=== PATIENT | male | born 1980 | race African-American/Black ===

== ENCOUNTER → 2016-09-22 | Outpatient (CLI) | payer BC ==
--- NOTE | 2016-09-22 13:43 | Diagnostic Imaging Report ---
INDICATION: Cough and shortness of breath x1 week. Comparison with 12/16/2010. FINDINGS: Examination of the chest in the PA and lateral projections fails to reveal evidence of active parenchymal pathology or pleural effusion. The cardiac silhouette is normal. IMPRESSION: 1. Negative chest. 2. No significant change since previous exam. Dictated by: Dictated on workstation # [id number]
== END ==
LOC: RAD 13:06
PROVIDERS: ATTEND Nurse Practitioner Family
DX: R05 Cough (principal); R06.00 Dyspnea, unspecified
CPT/HCPCS: 71020

== ENCOUNTER 2017-02-10 01:59 | Emergency (ER) | payer BC ==
[~2017-02-10] VITALS: Ht 185.4 cm; Wt 95.3 kg
[2017-02-10] MEDS ORDERED: methylPREDNISolone 125 MG (Solu-MEDROL) VIAL IM ONE (02:15)
[2017-02-10] MEDS ORDERED: MELO15TA39 (02:16)
--- NOTE | 2017-02-10 02:17 | ED Upper Extremity ---
General Chief Complaint: Upper Extremity Stated Complaint: ARTHRITIS FLARE UP-WRIST PAIN Source: patient History of Present Illness Time seen by provider: 02:05 Initial Comments PT C/O "RHEUMATOID FLARE" C/O RIGHT ANTERIOR WRIST PAIN SINCE Thursday02/05/17 PAIN WAS MILD THROUGH WEEKEND USED A ROW BOSS YESTERDAY PAIN MUCH WORSE SINCE NOON TODAY,BUT WAS ABLE TO WORK ALL DAY ( WORKS AT [employer] ) NO PARESTHESIAS OR MOTOR DEFICITS PT STATES HE WAS DX WITH R.A. A YEAR AGO, AND TAKES MELOXICAM DAILY FOR SYMPTOM CONTROL, AND USUALLY KEEPS IT FAIRLY WELL CONTROLLED. SOLAR ENERGY ENGINEER: DR. ECKERT Allergies and Home Medications Allergies Coded Allergies: No Known Drug Allergies (Unverified , 08/01/10) Constitutional: no symptoms reported Musculoskeletal: see HPI Psychiatric/Neurological: No Symptoms Reported Past Dcxmrcx-Rffznn-Rxselg Hx Patient Social History Alcohol Use: Denies Use Recreational Drug Use: Yes Drug of Choice: THC Smoking Status: Current Everyday Smoker (1/2 PPD) Type Used: Cigarettes Recent Foreign Travel: No Contact w/Someone Who Travel: No Surgeries History of Surgeries: No Respiratory History of Respiratory Disorde: No Cardiovascular History of Cardiac Disorders: No Neurological History of Neurological Disord: No Genitourinary History of Genitourinary Disor: No Gastrointestinal History of Gastrointestinal Di: No Musculoskeletal History of Musculoskeletal Dis: Yes Musculoskeletal Disorders: Rheumatoid Arthritis Endocrine History of Endocrine Disorders: No HEENT History of HEENT Disorders: No Cancer History of Cancer: No Psychosocial History of Psychiatric Problem: No Integumentary History of Skin or Integumenta: No Blood Transfusions History of Blood Disorders: No Physical Exam Vital Signs Capillary Refill : General Appearance: WD/WN, no apparent distress Elbow/Forearm: normal inspection, non-tender, no evidence of injury, normal ROM Wrist: No bone tenderness, Yes limited ROM, Yes pain, Yes soft tissue tenderness (RIGHT ANTERIOR WRIST), Yes swelling (SLIGHT) Hand: normal inspection, non-tender, no evidence of injury, normal ROM Neurologic/Tendon: normal sensation, normal motor functions, normal tendon functions Neurologic/Psychiatric: handle maker II-XII nml as tested, no motor/sensory deficits, alert, normal mood/affect, oriented x 3 Skin: normal color, warm/dry Progress/Results/Core Measures Results/Orders My Orders Orders - MARLY MARTINS DO Methylprednisolone Sod Succ (Solu-Medrol (02/10/17 02:15) Departure Impression Impression: Primary Impression: Right wrist pain Additional Impression: Rheumatoid arthritis flare Disposition: 01 HOME, SELF-CARE Condition: Stable Departure-Patient Inst. Referrals: HAROON WILKERSON MD (PCP/Family) Primary Care Physician Patient Instructions: Rheumatoid Arthritis (DC) Add. Discharge Instructions: ALTERNATE ICE AND HEAT TO AREA AT 20 MINUTE INTERVALS HOLD MELOXICAM WHILE TAKING PREDNISONE FOLLOW UP WITH DR. ECKERT IN 2-3 DAYS IF NO BETTER All discharge instructions reviewed with patient and/or family. Voiced understanding. Scripts Methylprednisolone (Medrol) 4 Mg Tab.ds.pk 4 MG PO UD, #1 PKG Prov: MARLY MARTINS DO 02/10/17 MARLY MARTINS DO Feb 10, 2017 02:17
[2017-02-10] MEDS ORDERED: METH4TAB PO (02:21)
[2017-02-10 02:28] VITALS: BP 127/97
== END 2017-02-10 02:28 | disposition home or self-care (01) ==
LOC: EDUNIT# 01:59 → ER 02:02
DX: F17.210 Nicotine dependence, cigarettes, uncomplicated; M06.9 Rheumatoid arthritis, unspecified
CPT/HCPCS: 96372; 99284

== ENCOUNTER → 2017-06-05 | Outpatient (CLI) | payer BC ==
[~2017-06-05] MED LIST: GADOBUTROL 10 MMOL/10 ML (GADAVIST) VIAL IV ONE; MELO15TA39; METH4TAB PO
[2017-06-05 09:20] LABS: ALANINE AMINOTRANSFERASE 20 U/L (0-55); ALBUMIN 4.5 GM/DL (3.2-4.5); ALKALINE PHOSPHATASE 50 U/L (40-136); BILIRUBIN,TOTAL 0.7 MG/DL (0.1-1.0); BUN/CREATININE RATIO 13; CALCIUM 9.8 MG/DL (8.5-10.1); CARBON DIOXIDE 25 MMOL/L (21-32); CHLORIDE 104 MMOL/L (98-107); CREATININE SERUM 0.91 MG/DL (0.60-1.30); GFR ESTIMATED > 60; GLUCOSE 98 MG/DL (70-105); POTASSIUM 4.4 MMOL/L (3.6-5.0); SODIUM 139 MMOL/L (135-145); TOTAL PROTEIN 7.6 GM/DL (6.4-8.2)
--- NOTE | 2017-06-05 10:17 | Diagnostic Imaging Report ---
CLINICAL INDICATION: Patient states he had a couple episodes of headaches, nausea and dizziness for the last several days at a time. Patient has joint pain and weight loss. Exam: MRI of the brain performed without and with 9 cc of Gadavist IV contrast. Sequences include axial DWI, ADC map, coronal gradient echo, axial T2, axial FLAIR, axial T1, axial T1 post IV contrast, coronal T1 fat-sat post IV contrast, and sagittal T1 post IV contrast. Comparison: MRI of the brain performed without and with IV contrast dated 12/16/2010. Findings: There is no evidence of acute cerebral infarct, intracranial hemorrhage, or gross mass effect. There is normal kimble-white matter distinction. The brain parenchymal volume appears appropriate for patient's age. There is no significant midline shift or herniation. The tetlin of Mcbride vascular structures show no gross abnormality as visualized. The pituitary gland, sella, and suprasellar regions are unremarkable as visualized. There is no evidence of hydrocephalus. The basal cisterns are unremarkable. The skull, extracranial soft tissue, and orbits are unremarkable. The paranasal sinuses are unremarkable. IMPRESSION: Unremarkable MRI of the brain. Dictated by: Dictated on workstation # [id number]
== END ==
LOC: RAD 08:34
PROVIDERS: ATTEND Nurse Practitioner Family
DX: R51 Headache (principal); R11.0 Nausea; R42 Dizziness and giddiness; R63.4 Abnormal weight loss
CPT/HCPCS: 36415; 70553; 80053

== ENCOUNTER 2017-06-12 18:18 | Emergency (ER) | payer BC ==
[~2017-06-12] VITALS: Ht 185.4 cm; Wt 93.4 kg
[~2017-06-12 18:18] MED LIST changes: -GADOBUTROL 10 MMOL/10 ML (GADAVIST) VIAL IV ONE
[2017-06-12] MEDS ORDERED: NS IV 1000 ML 1,000 ML IV SCH (19:15)
[2017-06-12] MEDS ORDERED: ONDANSETRON 4 MG/2 ML (SDV) Z0FRAN IVP ONE (19:30)
--- NOTE | 2017-06-12 19:30 | ED Abdominal Pain ---
General Chief Complaint: Abdominal/GI Problems Stated Complaint: LOSS OF APPETITE/THROAT DISCOMFORT Nursing Triage Note: PT CO OF NO APPETITE, NAUSEA X3 WEEKS,FELT LIKE HAS HAD SOMETHING IN THROAT FOR 2 DAYS, HAS LOST 20# SINCE FEB AND IS NOT TRYING TO LOOSE WT Sepsis Screen: No Definite Risk Source of Information: Patient Exam Limitations: No Limitations (ligated joining) History of Present Illness Date Seen by Provider: Jun 12, 2017 Time Seen by Provider: 19:27 Initial Comments To ER by mother with reports of an intentional weight loss since February totaling about 20 pounds. Nausea and epigastric fullness for 3 weeks. Sensation of some things stuck in his throat for about 2 days. Denies fevers. Denies bowel changes. Does report "tightness" in his upper abdomen. States he was recently diagnosed with rheumatoid arthritis about 3 days ago following evaluation for joint pains. He has not yet started any treatment for this because the medicine that they prescribed had a side effect listed of nausea. She was are dealing with nausea he didn't want add to that. Has been on meloxicam daily for over a year until about 2-3 weeks ago he stopped it. Timing/Duration: Getting Worse, Other Severity/Quality: Moderate Radiation: No Radiation Activities at Onset: None Associated Symptoms: Nausea/Vomiting Allergies and Home Medications Allergies Coded Allergies: No Known Drug Allergies (Unverified , 08/01/10) Review of Systems Constitutional: see HPI EENTM: No Symptoms Reported Respiratory: No Symptoms Reported Cardiovascular: No Symptoms Reported Gastrointestinal: See HPI, Abdominal Pain, Nausea Genitourinary: No Symptoms Reported Musculoskeletal: no symptoms reported Skin: no symptoms reported Psychiatric/Neurological: No Symptoms Reported Past Irniyzl-Sutoet-Ailoem Hx Patient Social History Alcohol Use: Denies Use Recreational Drug Use: Yes Drug of Choice: THC Type Used: Cigarettes Recent Foreign Travel: No Contact w/Someone Who Travel: No Recent Infectious Disease Expo: No Recent Hopitalizations: No Physical Abuse: No Sexual Abuse: No Surgeries History of Surgeries: No Respiratory History of Respiratory Disorde: No Cardiovascular History of Cardiac Disorders: No Neurological History of Neurological Disord: No Genitourinary History of Genitourinary Disor: No Gastrointestinal History of Gastrointestinal Di: No Musculoskeletal History of Musculoskeletal Dis: Yes Musculoskeletal Disorders: Rheumatoid Arthritis Endocrine History of Endocrine Disorders: No HEENT History of HEENT Disorders: No Cancer History of Cancer: No Psychosocial History of Psychiatric Problem: No Suicide Risk Score: 0 Integumentary History of Skin or Integumenta: No Blood Transfusions History of Blood Disorders: No Physical Exam Vital Signs VS - Last 72 Hours, by Label 06/12/17 18:45 Temp 97.7 Pulse 98 Resp 18 B/P (MAP) 135/90 (105) Pulse Ox 98 Capillary Refill : Less Than 3 Seconds General Appearance: WD/WN, no apparent distress HEENT: PERRL/EOMI, normal ENT inspection Neck: non-tender, full range of motion Respiratory: no respiratory distress, no accessory muscle use Cardiovascular: regular rate, rhythm, no murmur Gastrointestinal: normal bowel sounds, non tender, soft Neurologic/Psychiatric: alert, normal mood/affect, oriented x 3 Skin: normal color, warm/dry Progress/Results/Core Measures Results/Orders Lab Results Laboratory Tests Test 06/12/17 20:36 06/12/17 20:55 Range/Units White Blood Count 4.3 4.3-11.0 10^3/uL Red Blood Count 4.86 4.35-5.85 10^6/uL Hemoglobin 14.6 13.3-17.7 G/DL Hematocrit 42 40-54 % Mean Corpuscular Volume 86 80-99 FL Mean Corpuscular Hemoglobin 30 25-34 PG Mean Corpuscular Hemoglobin Concent 35 32-36 G/DL Red Cell Distribution Width 14.1 10.0-14.5 % Platelet Count 174 130-400 10^3/uL Mean Platelet Volume 10.3 7.4-10.4 FL Neutrophils (%) (Auto) 59 42-75 % Lymphocytes (%) (Auto) 32 12-44 % Monocytes (%) (Auto) 8 0-12 % Eosinophils (%) (Auto) 1 0-10 % Basophils (%) (Auto) 0 0-10 % Neutrophils # (Auto) 2.5 1.8-7.8 X 10^3 Lymphocytes # (Auto) 1.3 1.0-4.0 X 10^3 Monocytes # (Auto) 0.4 0.0-1.0 X 10^3 Eosinophils # (Auto) 0.0 0.0-0.3 10^3/uL Basophils # (Auto) 0.0 0.0-0.1 10^3/uL Sodium Level 138 135-145 MMOL/L Potassium Level 3.8 3.6-5.0 MMOL/L Chloride Level 107 98-107 MMOL/L Carbon Dioxide Level 23 21-32 MMOL/L Anion Gap 8 5-14 MMOL/L Blood Urea Nitrogen 9 7-18 MG/DL Creatinine 0.77 0.60-1.30 MG/DL Estimat Glomerular Filtration Rate > 60 BUN/Creatinine Ratio 12 Glucose Level 94 70-105 MG/DL Calcium Level 9.4 8.5-10.1 MG/DL Total Bilirubin 0.5 0.1-1.0 MG/DL Aspartate Amino Transf (AST/SGOT) 15 5-34 U/L Alanine Aminotransferase (ALT/SGPT) 19 0-55 U/L Alkaline Phosphatase 47 40-136 U/L C-Reactive Protein High Sensitivity 0.30 0.00-0.50 MG/DL Total Protein 7.0 6.4-8.2 GM/DL Albumin 4.1 3.2-4.5 GM/DL Thyroid Stimulating Hormone (TSH) 0.89 0.35-4.94 UIU/ML Free Thyroxine 0.91 0.70-1.48 NG/DL Urine Color YELLOW Urine Clarity CLEAR Urine pH 6.5 5-9 Urine Specific [place] 1.005 L 1.016-1.022 Urine Protein NEGATIVE NEGATIVE Urine Glucose (UA) NEGATIVE NEGATIVE Urine Ketones NEGATIVE NEGATIVE Urine Nitrite NEGATIVE NEGATIVE Urine Bilirubin NEGATIVE NEGATIVE Urine Urobilinogen NORMAL NORMAL MG/DL Urine Leukocyte Esterase NEGATIVE NEGATIVE Urine RBC (Auto) NEGATIVE NEGATIVE Urine RBC NONE /HPF Urine WBC NONE /HPF Urine Squamous Epithelial Cells RARE /HPF Urine Crystals NONE /LPF Urine Bacteria NONE /HPF Urine Casts NONE /LPF Urine Mucus NEGATIVE /LPF Urine Culture Indicated NO My Orders Orders - SHANE GAN APRN Influenza A And B Antigens (06/12/17 18:46) Cbc With Automated Diff (06/12/17 19:03) Comprehensive Metabolic Panel (06/12/17 19:03) Ua Culture If Indicated (06/12/17 19:03) Saline Lock/Iv-Start (06/12/17 19:03) Thyroid Stimulating Hormone (06/12/17 19:03) Free T4 (Free Thyroxine) (06/12/17 19:03) Ns Iv 1000 Ml (Sodium Chloride 0.9%) (06/12/17 19:15) Erythrocyte Sedimentation Rate (06/12/17 19:30) Hs C Reactive Protein (06/12/17 19:30) Ondansetron Injection (Zofran Injectio (06/12/17 19:30) Iohexol Injection (Omnipaque 350 Mg/Ml 1 (06/12/17 19:45) Pharmacy Communication (Pharmacy Communi (06/12/17 19:31) Ns (Ivpb) (Sodium Chloride 0.9%) (06/12/17 19:45) Ct Neck/Chest/Abdomen W (06/12/17 19:26) Antacid Suspension (Mylanta Suspension (06/12/17 21:30) Lidocaine 2% Viscous 15 Ml (Xylocaine Vi (06/12/17 21:30) Medications Given in ED Current Medications Medications Dose Ordered Sig/Jaquan Route Start Time Stop Time Status Last Admin Dose Admin Iohexol 100 ml ONCE ONCE IV 06/12/17 19:45 06/12/17 19:46 DC 06/12/17 20:45 100 ML Ondansetron HCl 4 mg ONCE ONCE IVP 06/12/17 19:30 06/12/17 19:31 DC 06/12/17 20:29 4 MG Sodium Chloride 250 ml ONCE ONCE IV 06/12/17 19:45 06/12/17 19:46 DC 06/12/17 20:45 80 ML Vital Signs/I&O Vital Sign - Last 12Hours 06/12/17 18:45 Temp 97.7 Pulse 98 Resp 18 B/P (MAP) 135/90 (105) Pulse Ox 98 Blood Pressure Mean: 105 Diagnostic Imaging Diagonstic Imaging: CT Comments NAME: KAI GERBER [facility] REC#: [id number] PT STATUS: REG ER : 1980 PHYSICIAN: SHANE GAN APRN ADMIT DATE: 06/12/17/ER Draft Date of Exam:06/12/17 CT NECK/CHEST/ABDOMEN W INDICATION: Nausea for 3 weeks with dysphagia and weight loss Multiple contiguous axial CT images of the neck, chest and abdomen are obtained after intravenous administration of iodinated contrast. CT neck: Great vessels in the neck appear patent. There are subcentimeter cervical lymph nodes which are distributed symmetrically, bilaterally. No evidence of dominant mass or fluid collection is seen. Parotid and submandibular salivary glands have a normal appearance as does the thyroid gland. IMPRESSION: No neck abnormality is appreciated. CT thorax: Lungs are clear, bilaterally. There is no evidence of mass or infiltrate. No significant pleural or pericardial fluid is identified. No pathologic adenopathy is seen in the thorax. No osseous abnormality is detected. IMPRESSION: Unremarkable CT of the thorax. CT abdomen: There is no evidence of focal hepatic or splenic abnormality. Pancreas, adrenal glands and kidneys are unremarkable. No gallbladder or renal abnormality is seen. There is no free fluid or evidence of pathologic adenopathy. Minimal atherosclerotic disease is present. IMPRESSION: No acute abnormalities identified and there is no evidence of abdominal mass. Dictated on workstation # [id number] Dict: 06/12/17 2100 Trans: 06/12/172108 KAILEY [id number] Interpreted by: RED WALSH MD Electronically signed by: Departure Communication (Admissions) Progress Notes 2127-patient is feeling somewhat better at this time, no longer nauseous. He does suggest that may be the discomfort or annoyance rather in his throat is a factor of a pill which he felt as though got stuck. He took one of his Prilosec tablets and thinks he might not of had enough water with it and it may of sat there in his throat for a while. We will try GI cocktail. His stomach discomfort may be from meloxicam induced gastritis/peptic ulcer disease and weight loss may be a factor of the rheumatoid arthritis recently diagnosed. Impression Impression: Primary Impression: Nausea alone Additional Impressions: Epigastric discomfort Weight loss Disposition: 01 HOME, SELF-CARE Condition: Stable Departure-Patient Inst. Decision time for Depature: 21:28 Referrals: HAROON WILKERSON MD (PCP/Family) Primary Care Physician Add. Discharge Instructions: 1. Start the Prilosec and the hydroxychloroquine 2. Return to ER for worsening symptoms 3. Follow-up with Dr. Wilkerson next week. Copy Copies To 1: HAROON WILKERSON MD, PETER J APRN Jun 12, 2017 19:30
[2017-06-12] MEDS ORDERED: NS 250 ML (IVPB) BAG IV ONE (19:45)
[2017-06-12] MEDS ORDERED: IOHEXOL 350 MG/ML 100 ML (OMNIPAQUE 350) VIAL IV ONE (19:45)
[2017-06-12 20:55] LABS: BASOPHILS % (AUTO) 0 % (0-10); EOSINOPHILS % (AUTO) 1 % (0-10); HEMATOCRIT 42 % (40-54); HEMOGLOBIN 14.6 G/DL (13.3-17.7); LYMPHOCYTES # (AUTO) 1.3 X 10^3 (1.0-4.0); LYMPHOCYTES % (AUTO) 32 % (12-44); MEAN CORPUSCULAR HEMOGLOBIN 30 PG (25-34); MEAN CORPUSCULAR HGB CONC 35 G/DL (32-36); MEAN CORPUSCULAR VOLUME 86 FL (80-99); MEAN PLATELET VOLUME 10.3 FL (7.4-10.4); MONOCYTES # (AUTO) 0.4 X 10^3 (0.0-1.0); MONOCYTES % (AUTO) 8 % (0-12); NEUTROPHILS # (AUTO) 2.5 X 10^3 (1.8-7.8); NEUTROPHILS % (AUTO) 59 % (42-75); PLATELET COUNT 174 10^3/uL (130-400); RED BLOOD COUNT 4.86 10^6/uL (4.35-5.85); RED CELL DISTRIBUTION WIDTH 14.1 % (10.0-14.5); WHITE BLOOD COUNT 4.3 10^3/uL (4.3-11.0)
--- NOTE | 2017-06-12 21:09 | Diagnostic Imaging Report ---
INDICATION: Nausea for 3 weeks with dysphagia and weight loss Multiple contiguous axial CT images of the neck, chest and abdomen are obtained after intravenous administration of iodinated contrast. CT neck: Great vessels in the neck appear patent. There are subcentimeter cervical lymph nodes which are distributed symmetrically, bilaterally. No evidence of dominant mass or fluid collection is seen. Parotid and submandibular salivary glands have a normal appearance as does the thyroid gland. IMPRESSION: No neck abnormality is appreciated. CT thorax: Lungs are clear, bilaterally. There is no evidence of mass or infiltrate. No significant pleural or pericardial fluid is identified. No pathologic adenopathy is seen in the thorax. No osseous abnormality is detected. IMPRESSION: Unremarkable CT of the thorax. CT abdomen: There is no evidence of focal hepatic or splenic abnormality. Pancreas, adrenal glands and kidneys are unremarkable. No gallbladder or renal abnormality is seen. There is no free fluid or evidence of pathologic adenopathy. Minimal atherosclerotic disease is present. IMPRESSION: No acute abnormalities identified and there is no evidence of abdominal mass. Dictated by: Dictated on workstation # [id number]
[2017-06-12 21:10] LABS: BILIRUBIN,URINE NEGATIVE (NEGATIVE); GLUCOSE, URINE (UA) NEGATIVE (NEGATIVE); KETONES,URINE NEGATIVE (NEGATIVE); LEUKOCYTE ESTERASE ,URINE NEGATIVE (NEGATIVE); NITRITE,URINE NEGATIVE (NEGATIVE); PH,URINE 6.5 (5-9); PROTEIN,URINE NEGATIVE (NEGATIVE); UROBILINOGEN,URINE NORMAL (NORMAL)
[2017-06-12 21:11] LABS: CLARITY,URINE CLEAR; COLOR,URINE YELLOW; SQUAMOUS EPITHELIAL CELL,UR RARE /HPF
[2017-06-12 21:16] LABS: ALANINE AMINOTRANSFERASE 19 U/L (0-55); ALBUMIN 4.1 GM/DL (3.2-4.5); ALKALINE PHOSPHATASE 47 U/L (40-136); BILIRUBIN,TOTAL 0.5 MG/DL (0.1-1.0); BUN/CREATININE RATIO 12; CALCIUM 9.4 MG/DL (8.5-10.1); CARBON DIOXIDE 23 MMOL/L (21-32); CHLORIDE 107 MMOL/L (98-107); CREATININE SERUM 0.77 MG/DL (0.60-1.30); GFR ESTIMATED > 60; GLUCOSE 94 MG/DL (70-105); POTASSIUM 3.8 MMOL/L (3.6-5.0); SODIUM 138 MMOL/L (135-145)
[2017-06-12] MEDS ORDERED: ANTACID SUSP 30 ML UDC (MYLANTA) PO ONE (21:30)
[2017-06-12] MEDS ORDERED: LIDOCAINE 2% VISCOUS 15 ML UDC PO ONE (21:30)
[2017-06-12 21:36] LABS: FREE T4 (FREE THYROXINE) 0.91 NG/DL (0.70-1.48)
[2017-06-12 22:19] VITALS: BP 111/75
[2017-06-12 23:01] LABS: ERYTHROCYTE SEDIMENTATION RATE 5 MM/HR (0-15)
== END 2017-06-12 22:19 | disposition home or self-care (01) ==
LOC: EDUNIT# 18:18 → ER 18:19
DX: R11.0 Nausea (principal); R10.13 Epigastric pain; R63.4 Abnormal weight loss; M06.9 Rheumatoid arthritis, unspecified; F12.10 Cannabis abuse, uncomplicated; F17.200 Nicotine dependence, unspecified, uncomplicated
CPT/HCPCS: 36415; 70491; 71260; 74160; 80053; 81000; 84439; 84443; 85025; 85652; 86141; 96361; 96374

== ENCOUNTER → 2017-07-07 | Outpatient (CLI) | payer BC | LOC: PREOP 09:55 | PROVIDERS: ATTEND Surgery | DX: Z01.818 Encounter for other preprocedural examination (principal); K21.9 Gastro-esophageal reflux disease without esophagitis ==

== ENCOUNTER 2017-07-10 13:26 | Emergency (ER) | payer BC ==
[~2017-07-10] VITALS: Ht 185.4 cm; Wt 92.5 kg
--- NOTE | 2017-07-10 15:16 | ED Abdominal Pain ---
General Chief Complaint: Abdominal/GI Problems Stated Complaint: N/V Nursing Triage Note: pt complaint of nausea x 7-10 weeks. pt states seen multiple doctors for this. pt now taking meds for his RA and nausea Sepsis Screen: No Definite Risk Source of Information: Patient Exam Limitations: No Limitations History of Present Illness Date Seen by Provider: Jul 10, 2017 Time Seen by Provider: 15:16 Initial Comments This 37-year-old male presents with a complaint of a 60 pound weight loss and persistent nausea vomiting diarrhea and abdominal pain for the last 9 months. The patient denies any hematemesis or black or tarry stools. He has been on ulcer medicine without improvement. He has recently diagnosed rheumatoid arthritis for which she was on meloxicam and subsequently Plaquenil. Patient's joint pains have decreased. His abdominal complaints continue. The patient is under the care of Dr. Deal. He is scheduled to see Dr. Tripp for an EGD early next week. Allergies and Home Medications Allergies Coded Allergies: No Known Drug Allergies (Unverified , 08/01/10) Patient Home Medication List Home Medication List Reviewed: Yes Review of Systems Constitutional: No chills EENTM: No Blurred Vision Respiratory: Denies Cough Cardiovascular: Denies Chest Pain Gastrointestinal: Abdominal Pain, Diarrhea, Nausea, Denies Rectal Bleeding, Vomiting Genitourinary: No Symptoms Reported Musculoskeletal: no symptoms reported Skin: no symptoms reported Psychiatric/Neurological: No Symptoms Reported Endocrine: No Symptoms Reported Hematologic/Lymphatic: No Symptoms Reported Past Heimecl-Ryixbi-Vpoooz Hx Patient Social History Drug of Choice: THC Type Used: Cigarettes Recent Foreign Travel: No Contact w/Someone Who Travel: No Recent Infectious Disease Expo: No Recent Hopitalizations: No Surgeries History of Surgeries: No Respiratory History of Respiratory Disorde: No Cardiovascular History of Cardiac Disorders: No Neurological History of Neurological Disord: No Genitourinary History of Genitourinary Disor: No Gastrointestinal History of Gastrointestinal Di: No Musculoskeletal History of Musculoskeletal Dis: Yes Musculoskeletal Disorders: Rheumatoid Arthritis Endocrine History of Endocrine Disorders: No HEENT History of HEENT Disorders: No Cancer History of Cancer: No Psychosocial History of Psychiatric Problem: No Integumentary History of Skin or Integumenta: No Blood Transfusions History of Blood Disorders: No Reviewed Nursing Assessment Reviewed/Agree w Nursing PMH: Yes Physical Exam Vital Signs VS - Last 72 Hours, by Label 07/10/17 14:41 Temp 97.9 Pulse 76 Resp 20 B/P (MAP) 151/95 (113) Pulse Ox 100 O2 Delivery Room Air Capillary Refill : Less Than 3 Seconds General Appearance: WD/WN, no apparent distress Neck: full range of motion Respiratory: lungs clear, normal breath sounds Cardiovascular: normal peripheral pulses, regular rate, rhythm Gastrointestinal: normal bowel sounds, non tender, soft Extremities: normal range of motion, non-tender, normal inspection Back: normal inspection Neurologic/Psychiatric: no motor/sensory deficits, alert, normal mood/affect Skin: normal color, warm/dry Progress/Results/Core Measures Results/Orders Lab Results Laboratory Tests Test 07/10/17 17:00 07/10/17 17:25 Range/Units White Blood Count 4.5 4.3-11.0 10^3/uL Red Blood Count 5.38 4.35-5.85 10^6/uL Hemoglobin 16.1 13.3-17.7 G/DL Hematocrit 46 40-54 % Mean Corpuscular Volume 85 80-99 FL Mean Corpuscular Hemoglobin 30 25-34 PG Mean Corpuscular Hemoglobin Concent 35 32-36 G/DL Red Cell Distribution Width 13.7 10.0-14.5 % Platelet Count 179 130-400 10^3/uL Mean Platelet Volume 9.6 7.4-10.4 FL Neutrophils (%) (Auto) 54 42-75 % Lymphocytes (%) (Auto) 36 12-44 % Monocytes (%) (Auto) 9 0-12 % Eosinophils (%) (Auto) 1 0-10 % Basophils (%) (Auto) 0 0-10 % Neutrophils # (Auto) 2.4 1.8-7.8 X 10^3 Lymphocytes # (Auto) 1.7 1.0-4.0 X 10^3 Monocytes # (Auto) 0.4 0.0-1.0 X 10^3 Eosinophils # (Auto) 0.0 0.0-0.3 10^3/uL Basophils # (Auto) 0.0 0.0-0.1 10^3/uL Sodium Level 141 135-145 MMOL/L Potassium Level 3.9 3.6-5.0 MMOL/L Chloride Level 108 H 98-107 MMOL/L Carbon Dioxide Level 22 21-32 MMOL/L Anion Gap 11 5-14 MMOL/L Blood Urea Nitrogen 9 7-18 MG/DL Creatinine 0.77 0.60-1.30 MG/DL Estimat Glomerular Filtration Rate > 60 BUN/Creatinine Ratio 12 Glucose Level 89 70-105 MG/DL Calcium Level 9.8 8.5-10.1 MG/DL Total Bilirubin 0.5 0.1-1.0 MG/DL Aspartate Amino Transf (AST/SGOT) 15 5-34 U/L Alanine Aminotransferase (ALT/SGPT) 20 0-55 U/L Alkaline Phosphatase 44 40-136 U/L Total Protein 7.3 6.4-8.2 GM/DL Albumin 4.5 3.2-4.5 GM/DL Lipase 54 8-78 U/L Urine Color YELLOW Urine Clarity CLEAR Urine pH 6.5 5-9 Urine Specific [place] 1.005 L 1.016-1.022 Urine Protein NEGATIVE NEGATIVE Urine Glucose (UA) NEGATIVE NEGATIVE Urine Ketones NEGATIVE NEGATIVE Urine Nitrite NEGATIVE NEGATIVE Urine Bilirubin NEGATIVE NEGATIVE Urine Urobilinogen NORMAL NORMAL MG/DL Urine Leukocyte Esterase NEGATIVE NEGATIVE Urine RBC (Auto) NEGATIVE NEGATIVE Urine RBC NONE /HPF Urine WBC NONE /HPF Urine Squamous Epithelial Cells RARE /HPF Urine Crystals NONE /LPF Urine Bacteria NONE /HPF Urine Casts NONE /LPF Urine Mucus NEGATIVE /LPF Urine Culture Indicated NO My Orders Orders - DENIA DUVAL MD Cbc With Automated Diff (07/10/17 16:24) Comprehensive Metabolic Panel (07/10/17 16:24) Ua Culture If Indicated (07/10/17 16:24) Ns Iv 1000 Ml (Sodium Chloride 0.9%) (07/10/17 16:30) Lipase (07/10/17 16:24) Us Gallbladder [id number] (07/10/17 17:02) Vital Signs/I&O Vital Sign - Last 12Hours 07/10/17 14:41 Temp 97.9 Pulse 76 Resp 20 B/P (MAP) 151/95 (113) Pulse Ox 100 O2 Delivery Room Air Blood Pressure Mean: 113 Progress Note : Time: 16:47 Progress Note I visited with Drs. Jorge Alberto Tripp. Dr. Tripp was kind enough to present to the emergency department to evaluate the patient. Patient's ultrasound of gallbladder was unremarkable. Patient's laboratory evaluation including amylase was similarly benign. Dr. Tripp arranged for the patient to the follow-up closely on Thursday. We will initiate Protonix and Carafate in the interim for the patient. Departure Impression Impression: Primary Impression: Abdominal pain Qualified Codes: R10.13 - Epigastric pain Disposition: ADMITTED INPATIENT Condition: Unchanged Admissions Decision to Admit Reason: Admit from ER (General) Decision to Admit/Date: Jul 10, 2017 Time/Decision to Admit Time: 18:53 Departure-Patient Inst. Decision time for Depature: 18:53 Referrals: HAROON WILKERSON MD (PCP/Family) Primary Care Physician PAL TRIPP DO Patient Instructions: Acute Abdomen (Belly Pain), Adult (DC) Add. Discharge Instructions: Carafate and Protonix as prescribed. Close follow up with Drs. WILKERSON and Ninoska. Come back for any problems or questions. All discharge instructions reviewed with patient and/or family. Voiced understanding. DENIA DUVAL MD Jul 10, 2017 15:16
[2017-07-10] MEDS ORDERED: NS IV 1000 ML 1,000 ML IV SCH (16:30)
[2017-07-10 17:09] LABS: BASOPHILS % (AUTO) 0 % (0-10); EOSINOPHILS % (AUTO) 1 % (0-10); HEMATOCRIT 46 % (40-54); HEMOGLOBIN 16.1 G/DL (13.3-17.7); LYMPHOCYTES # (AUTO) 1.7 X 10^3 (1.0-4.0); LYMPHOCYTES % (AUTO) 36 % (12-44); MEAN CORPUSCULAR HEMOGLOBIN 30 PG (25-34); MEAN CORPUSCULAR HGB CONC 35 G/DL (32-36); MEAN CORPUSCULAR VOLUME 85 FL (80-99); MEAN PLATELET VOLUME 9.6 FL (7.4-10.4); MONOCYTES # (AUTO) 0.4 X 10^3 (0.0-1.0); MONOCYTES % (AUTO) 9 % (0-12); NEUTROPHILS # (AUTO) 2.4 X 10^3 (1.8-7.8); NEUTROPHILS % (AUTO) 54 % (42-75); PLATELET COUNT 179 10^3/uL (130-400); RED BLOOD COUNT 5.38 10^6/uL (4.35-5.85); RED CELL DISTRIBUTION WIDTH 13.7 % (10.0-14.5); WHITE BLOOD COUNT 4.5 10^3/uL (4.3-11.0)
[2017-07-10 17:26] LABS: ALANINE AMINOTRANSFERASE 20 U/L (0-55); ALBUMIN 4.5 GM/DL (3.2-4.5); ALKALINE PHOSPHATASE 44 U/L (40-136); BILIRUBIN,TOTAL 0.5 MG/DL (0.1-1.0); BUN/CREATININE RATIO 12; CALCIUM 9.8 MG/DL (8.5-10.1); CARBON DIOXIDE 22 MMOL/L (21-32); CHLORIDE 108 MMOL/L (98-107); CREATININE SERUM 0.77 MG/DL (0.60-1.30); GFR ESTIMATED > 60; GLUCOSE 89 MG/DL (70-105); LIPASE 54 U/L (8-78); POTASSIUM 3.9 MMOL/L (3.6-5.0); SODIUM 141 MMOL/L (135-145); TOTAL PROTEIN 7.3 GM/DL (6.4-8.2)
[2017-07-10 17:51] LABS: BILIRUBIN,URINE NEGATIVE (NEGATIVE); CLARITY,URINE CLEAR; COLOR,URINE YELLOW; GLUCOSE, URINE (UA) NEGATIVE (NEGATIVE); KETONES,URINE NEGATIVE (NEGATIVE); LEUKOCYTE ESTERASE ,URINE NEGATIVE (NEGATIVE); NITRITE,URINE NEGATIVE (NEGATIVE); PH,URINE 6.5 (5-9); PROTEIN,URINE NEGATIVE (NEGATIVE); UROBILINOGEN,URINE NORMAL (NORMAL)
[2017-07-10 17:52] LABS: SQUAMOUS EPITHELIAL CELL,UR RARE /HPF
--- NOTE | 2017-07-10 18:11 | Diagnostic Imaging Report ---
CLINICAL INDICATION: Patient with vomiting and nausea. EXAM: Right upper quadrant ultrasound. COMPARISON: CT scan of the neck, chest, abdomen, and pelvis dated 06/12/2017. FINDINGS: There is limited visualization of the intra-abdominal structures due to patient body habitus and overlying bowel gas. The visualized portions of the pancreatic tail and head are significantly obscured. The pancreas is not well visualized. The liver has normal echogenicity and echotexture. The liver measures 15.5 cm in craniocaudal dimension. There is no liver mass seen. The main portal vein demonstrates hepatopetal flow. There is no intrahepatic or extrahepatic ductal dilation. The common hepatic duct measures grossly 3.2 mm. Gallbladder is unremarkable with no stones or sludge seen. There is no significant gallbladder wall thickening. There is no pericholecystic fluid. There is no sonographic Parks's sign. There is no abdominal ascites. The visualized portions of the IVC are unremarkable. The right kidney is unremarkable with no hydronephrosis or mass seen. The right kidney measures 9.2 cm in craniocaudal dimension. IMPRESSION: 1: Incomplete visualization of the pancreas. If there is clinical concern for pancreatic abnormality, serology tests may better evaluate. 2: Otherwise, unremarkable right upper quadrant ultrasound. Dictated by: Dictated on workstation # [id number]
[2017-07-10 19:02] VITALS: BP 118/79
--- NOTE | 2017-07-10 21:00 | Consultation ---
History of Present Illness History of Present Illness Patient Consulted On(sara/time) 07/10/17 20:51 Date Seen by Provider: Jul 10, 2017 Time Seen by Provider: 17:00 History of Present Illness consult requested by Dr. Patel for nausea and abdominal pain. Seen and evaluated in emergency dept. Patient is a 37 year old male known to me. He has had significant nausea, vomiting and abdominal discomfort. Nothing making it better. Nothing seems to make it worse at this time. He has lost weight. No hematemesis. He was previously on Meloxicam and was recently taken off. He has tried Prilosec which isn't helping much now. The abdominal discomfort is epigastric to left upper quadrant, which is moderate. Some diarrhea, no blood in stools. He is scheduled for EGD on Thursday. Allergies and Home Medications Allergies Coded Allergies: No Known Drug Allergies (Unverified , 08/01/10) Patient Home Medication List Home Medication List Reviewed: Yes Past Sjpfxyn-[id number]-[id number] Hx Patient Social History Alcohol Use: Denies Use Recreational Drug Use: No Drug of Choice: THC Type Used: Cigarettes Recent Foreign Travel: No Contact w/Someone Who Travel: No Recent Infectious Disease Expo: No Recent Hopitalizations: No Surgeries History of Surgeries: No Respiratory History of Respiratory Disorde: No Cardiovascular History of Cardiac Disorders: No Neurological History of Neurological Disord: No Genitourinary History of Genitourinary Disor: No Gastrointestinal History of Gastrointestinal Di: No Musculoskeletal History of Musculoskeletal Dis: Yes Musculoskeletal Disorders: Rheumatoid Arthritis Endocrine History of Endocrine Disorders: No HEENT History of HEENT Disorders: No Cancer History of Cancer: No Psychosocial History of Psychiatric Problem: No Integumentary History of Skin or Integumenta: No Blood Transfusions History of Blood Disorders: No Reviewed Nursing Assessment Reviewed/Agree w Nursing PMH: Yes Family Medical History Significant Family History: No Pertinent Family Hx Review of Systems-General Constitutional: no symptoms reported EENTM: no symptoms reported Respiratory: no symptoms reported Cardiovascular: no symptoms reported Gastrointestinal: see HPI Genitourinary: no symptoms reported Musculoskeletal: no symptoms reported Skin: no symptoms reported Psychiatric/Neurological: No Symptoms Reported All Other Systems Reviewed Negative Unless Noted: Yes (Negative excepted noted.) Physical Exam-General Problems Physical Exam Vital Signs Vital Signs - First Documented 07/10/17 14:41 Temp 97.9 Pulse 76 Resp 20 B/P (MAP) 151/95 (113) Pulse Ox 100 O2 Delivery Room Air Capillary Refill : Less Than 3 Seconds General Appearance: no apparent distress HEENT: PERRL/EOMI, normal ENT inspection Neck: supple Respiratory: no respiratory distress, no accessory muscle use Cardiovascular: regular rate, rhythm Gastrointestinal: soft (slight tenderness to palpation in epigastric region no guarding or rebounding), no organomegaly, no pulsatile mass Back: normal inspection Extremities: non-tender, normal inspection, no pedal edema Neurologic/Psychiatric: joint filler II-XII nml as tested, no motor/sensory deficits, alert, normal mood/affect, oriented x 3 Skin: warm/dry Lymphatic: no adenopathy Data Review Labs Laboratory Tests 07/10/17 17:00: White Blood Count 4.5, Red Blood Count 5.38, Hemoglobin 16.1, Hematocrit 46, Mean Corpuscular Volume 85, Mean Corpuscular Hemoglobin 30, Mean Corpuscular Hemoglobin Concent 35, Red Cell Distribution Width 13.7, Platelet Count 179, Mean Platelet Volume 9.6, Neutrophils (%) (Auto) 54, Lymphocytes (%) (Auto) 36, Monocytes (%) (Auto) 9, Eosinophils (%) (Auto) 1, Basophils (%) (Auto) 0, Neutrophils # (Auto) 2.4, Lymphocytes # (Auto) 1.7, Monocytes # (Auto) 0.4, Eosinophils # (Auto) 0.0, Basophils # (Auto) 0.0, Sodium Level 141, Potassium Level 3.9, Chloride Level 108H, Carbon Dioxide Level 22, Anion Gap 11, Blood Urea Nitrogen 9, Creatinine 0.77, Estimat Glomerular Filtration Rate > 60, BUN/ Creatinine Ratio 12, Glucose Level 89, Calcium Level 9.8, Total Bilirubin 0.5, Aspartate Amino Transf (AST/SGOT) 15, Alanine Aminotransferase (ALT/SGPT) 20, Alkaline Phosphatase 44, Total Protein 7.3, Albumin 4.5, Lipase 54 07/10/17 17:25: Urine Color YELLOW, Urine Clarity CLEAR, Urine pH 6.5, Urine Specific [place] 1.005L, Urine Protein NEGATIVE, Urine Glucose (UA) NEGATIVE, Urine Ketones NEGATIVE, Urine Nitrite NEGATIVE, Urine Bilirubin NEGATIVE, Urine Urobilinogen NORMAL, Urine Leukocyte Esterase NEGATIVE, Urine RBC (Auto) NEGATIVE, Urine RBC NONE, Urine WBC NONE, Urine Squamous Epithelial Cells RARE, Urine Crystals NONE , Urine Bacteria NONE, Urine Casts NONE, Urine Mucus NEGATIVE, Urine Culture Indicated NO Assessment/Plan Assessment/Plan Assessment/Plan epigastric abdominal pain gastritis nausea/vomiting recommended u/s and gallbladder is normal would start on protonix and carafate and conitnue plan of egd Thursday would also set up for HIDA scan to complete gallbladder workup this can be done outpatient, but if worsens should be re-evaluated at that time. patient and family agree with plan. PAL TRIPP DO Jul 10, 2017 21:00
[2017-07-13] MEDS ORDERED: SUCR1TAB36 PO (14:33)
== END 2017-07-10 19:04 | disposition home or self-care (01) ==
LOC: EDUNIT# 13:26 → ER 13:28
DX: R10.13 Epigastric pain (principal); M06.9 Rheumatoid arthritis, unspecified; F12.90 Cannabis use, unspecified, uncomplicated
CPT/HCPCS: 36415; 76705; 80053; 81000; 83690; 85025; 96360

== ENCOUNTER 2017-07-13 15:58 | Day surgery (SDC) | payer BC ==
[~2017-07-13] VITALS: Ht 185.4 cm; Wt 93.6 kg
[~2017-07-13 15:58] MED LIST changes: +SUCR1TAB36 PO
--- OUTSIDE RECORDS SUMMARY | 2017-07-13 16:03 | XMS REPORT | CCD ---
Author Author Alma Azul Organization Alma Azul MD, [facility] Address [address] [place] [address] Phone Care Team Providers Care Activity Coordinator Name Role Phone PP Unavailable CCM Unavailable Summary Purpose Interface Exchange Insurance Providers Payer name Policy type / Coverage type Covered republican ID Effective Begin Date Effective End Date [facility] [id number] 2016 Unknown Family history Mother Diagnosis Age At Onset No Family Disease Entered N/A Sister Diagnosis Age At Onset No Family Disease Entered N/A Brother Diagnosis Age At Onset No Family Disease Entered N/A Daughter Diagnosis Age At Onset No Family Disease Entered N/A Brother Diagnosis Age At Onset No Family Disease Entered N/A Brother Diagnosis Age At Onset No Family Disease Entered N/A Brother Diagnosis Age At Onset No Family Disease Entered N/A Father Diagnosis Age At Onset No Family Disease Entered N/A Social History Social History Element Codes Description Effective Dates Number of children Unknown 1 12/26/2012 Marital status Unknown 06/26/2011 Living arrangements Unknown House 06/26/2011 Employment Unknown Currently employed [employer] 06/26/2011 Allergies, Adverse Reactions, Alerts Allergies, Adverse Reactions, Alerts data not found Past Medical History Illness Codes Condition Status Onset Date Resolved Date Abnormal weight loss ICD-9: 783.21 ICD-10: R63.4 Active 05/28/2017 Unknown Gastro-esophageal reflux disease without esophagitis ICD-9: 530.81 ICD-10: K21.9 Active 06/11/2017 Unknown Other malaise ICD-9: 780.79 ICD-10: R53.81 Active 05/28/2017 Unknown Benign paroxysmal vertigo, bilateral ICD-9: 386.11 ICD-10: H81.13 Active 09/11/2016 Unknown Other fatigue ICD-9: 780.79 ICD-10: R53.83 Active 05/28/2017 Unknown 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 ICD-9 : 714.0 ICD-10: M05.732 Active 04/08/2017 Unknown Acute bronchitis due to other specified organisms ICD-9: 466.0 ICD-10: J20.8 Active 09/22/2016 Unknown Other allergic rhinitis ICD-9: 477.8 ICD-10: J30.89 Active 09/22/2016 Unknown Pain in right wrist ICD-9: 719.43 ICD-10: M25.531 Active 06/05/2016 Unknown Encounter for general adult medical examination without abnormal findings ICD-9: V70.0 ICD-10: Z00.00 Active 10/24/2014 Unknown PREVENTIVE PHYSICAL EXAM ICD-9: V70.0 Active 10/24/2014 Unknown ACHILLES TENDINITIS ICD-9: 726.71 Active 10/26/2012 Unknown ACUTE URI ICD-9: 465.9 Active 12/08/2011 Unknown Elevated blood pressure ICD-9: 796.2 Active 06/26/2011 Unknown Localized pruritus ICD -9: 698.9 Active 06/26/2011 Unknown Rash ICD-9: 782.1 Active 06/26/2011 Unknown Problems Condition Codes Effective Dates Condition Status Abnormal weight loss ICD-9: 783.21 ICD-10: R63.4 05/28/2017 Active Gastro-esophageal reflux disease without esophagitis ICD-9: 530.81 ICD-10: K21.9 06/11/2017 Active Other malaise ICD-9: 780.79 ICD-10: R53.81 05/28/2017 Active Benign paroxysmal vertigo, bilateral ICD-9: 386.11 ICD-10: H81.13 09/11/2016 Active Other fatigue ICD-9: 780.79 ICD-10: R53.83 05/28/2017 Active 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 ICD-9 : 714.0 ICD-10: M05.732 04/08/2017 Active Acute bronchitis due to other specified organisms ICD-9: 466.0 ICD-10: J20.8 09/22/2016 Active Other allergic rhinitis ICD-9: 477.8 ICD-10: J30.89 09/22/2016 Active Pain in right wrist ICD-9: 719.43 ICD-10: M25.531 06/05/2016 Active Encounter for general adult medical examination without abnormal findings ICD-9: V70.0 ICD-10: Z00.00 10/24/2014 Active PREVENTIVE PHYSICAL EXAM ICD-9: V70.0 10/24/2014 Active ACHILLES TENDINITIS ICD-9: 726.71 10/26/2012 Active ACUTE URI ICD-9: 465.9 12/08/2011 Active Elevated blood pressure ICD-9: 796.2 06/26/2011 Active Localized pruritus ICD -9: 698.9 06/26/2011 Active Rash ICD-9: 782.1 06/26/2011 Active Medications Medication Codes Instructions Start Date Stop Date Status Fill Instructions Carafate 1 gram tablet RxNorm: 357440 1 Tablet(s) PO AC & HS 09/19/2017 Active Carafate 1 gram tablet RxNorm: 391461 1 Tablet(s) PO AC & HS 06/21/2017 Inactive Prilosec OTC 20 mg tablet,delayed release RxNorm: 847790 1 Tablet(s) PO daily 06/11/2017 No Stop Date Active meclizine 25 mg tablet RxNorm: 125694 1 Tablet(s) PO TID as needed 05/28/2017 06/06/2017 Inactive Zofran ODT 4 mg disintegrating tablet RxNorm: 741893 1 Tablet(s) PO TID as needed 05/28/2017 06/06/2017 Inactive clobetasol 0.05 % topical cream RxNorm: 385540 APPLY TO AFFECTED AREAS TOP as needed FOR ECZEMA 05/06/2017 No Stop Date Active Voltaren 1 % topical gel RxNorm: 926779 1 Application TOP QID as needed 04/08/2017 No Stop Date Active prednisone 10 mg tablet RxNorm: 165766 Tablet(s) PO UD 201605/27/2017 Inactive 6,5,4,3,2,1 Kenalog 40 mg/mL suspension for injection RxNorm: 6937764 Milliliter(s) Inj 04/08/2017 04/08/2017 Inactive Zyrtec 10 mg tablet RxNorm: 3883133 1 Tablet(s) PO daily 09/2210/21/2016 Inactive Kenalog 40 mg/mL suspension for injection RxNorm: 0282502 1 Milliliter(s) Inj 09/22/2016 09/22/2016 Inactive prednisone 20 mg tablet RxNorm: 393405 1 Tablet(s) PO daily 05/27/2017 Inactive clobetasol 0.05 % topical cream RxNorm: 438822 APPLY TO AFFECTED AREAS TOP as needed FOR ECZEMA 06/21/2015 05/05/2017 Inactive prednisone 10 mg tablets in a dose pack RxNorm: 639445 Tablet(s) PO 09/03/2012 09/08/2012 Inactive Diflucan 150 mg tablet RxNorm: 535440 1 Tablet(s) PO daily 09/12/2012 Inactive nystatin-triamcinolone 100,000 unit/gram-0.1 % Ointment RxNorm: 1907979 1 Application TOP BID 12/15/2011 12/14/2011 Inactive nystatin-triamcinolone 100,000 unit/gram-0.1 % Ointment RxNorm: 1897075 1 Application TOP BID 12/15/2011 12/28/2011 Inactive Bactrim DS 800 mg-160 mg tablet RxNorm: 718441 1 Tablet(s) PO BID 12/08/2011 12/17/2011 Inactive prednisone 10 mg tablets in a dose pack RxNorm: 009825 Tablet(s) PO UD 6-5-4-3-2- 1 12/08/2011 12/13/2011 Inactive itraconazole 100 mg Cap RxNorm: 538367 1 Capsule(s) PO 201110/25/2012 Inactive Kenalog 40 mg/mL Susp for Injection RxNorm: 9155008 Milliliter(s) Inj 06/26/2011 06/26/2011 Inactive Kenalog 40 mg/mL Susp for Injection RxNorm: 2844021 2 Milliliter(s) Inj 06/26/2011 06/26/2011 Inactive meloxicam 15 mg tablet RxNorm: 318313 1 Tablet(s) PO daily No Start Date Active itraconazole 100 mg Cap RxNorm: 148400 1 Capsule(s) PO No Start Date 10/21/2011 Inactive clobetasol 0.05 % topical cream RxNorm: 261124 APPLY TO AFFECTED AREAS TOP as needed FOR ECZEMA No Start Date 2015 Inactive Medication Administered Medication Codes Instructions Start Date Status Kenalog 40 mg/mL suspension for injection RxNorm: 8134363 Milliliter 04/08/2017 No longer Active Kenalog 40 mg/mL suspension for injection RxNorm: 5732024 1Milliliter 09/22/2016 No longer Active Kenalog 40 mg/mL Susp for Injection RxNorm: 6162965 2Milliliter 06/26/2011 No longer Active Immunizations No Immunization data Assessments Condition Codes Effective Dates Abnormal weight loss ICD-10: R63.4 ICD-9: 783.21 06/11/2017 Other malaise ICD-10: R53.81 ICD-9: 780.79 06/11/2017 Gastro-esophageal reflux disease without esophagitis ICD-10 : K21.9 ICD-9: 530.81 06/11/2017 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 ICD-10: M05.732 ICD-9: 714.0 05/28/2017 Other fatigue ICD-10: R53.83 ICD-9: 780.79 05/28/2017 Benign paroxysmal vertigo, bilateral ICD-10: H81.13 ICD-9: 386.11 05/28/2017 Acute bronchitis due to other specified organisms ICD-10: J20.8 ICD-9: 466.0 09/22/2016 Other allergic rhinitis ICD-10: J30.89 ICD-9: 477.8 09/22/2016 Pain in right wrist ICD-10: M25.531 ICD-9: 719.43 06/05/2016 Encounter for general adult medical examination without abnormal findings ICD-10: Z00.00 ICD-9: V70.0 10/24/2015 PREVENTIVE PHYSICAL EXAM ICD-9: V70.0 ACHILLES TENDINITIS ICD-9: 726.71 2012 PRURITIC DISORDER ICD-9: 698.9 2012 Rash ICD-9: 782.1 09/03/2012 ACUTE URI ICD-9: 465.9 12/08/2011 Elevated blood pressure ICD-9: 796.2 Reason For Visit Reason For Visit Effective Dates Notes nausea 06/11/2017 dizziness 05/28/2017 wrist pain 04/08/2017 cough 09/22/2016 dizziness 09/11/2016 wrist pain 06/05/2016 ankle pain 10/24/2015 skin lesion 10/25/2014 ankle pain 10/26/2012 skin lesion 09/03/2012 headache 12/08/2011 rash 07/29/2011 started on patient's right hand and spread to the left. he was taking diflucan and nystatin cream. Once that cleared, it started on both of his arms. flare up of rash 06/26/2011 Results Observation Observation Code Item Item Code Result Date Zoila 293249 ZOILA (ZACH) SCREEN DETECTED 06/13/2016 Zoila 132020 ZOILA (IFA) TITER 1:160 06/13/2016 Zoila 159603 ZOILA PATTERN SPECKLED 06/13/2016 Zoila [id number] 06/13/2016 Cbc With Differential Ord2 WBC 3.84 K/ul 06/05/2016 Cbc With Differential Ord2 RBC 5.27 M/ul 06/05/2016 Cbc With Differential Ord2 HGB 15.6 g/dl 06/05/2016 Cbc With Differential Ord2 HCT 45.1 % 06/05/2016 Cbc With Differential Ord2 Neut% 56.7 % 06/05/2016 Cbc With Differential Ord2 MCV 85.6 fl 06/05/2016 Cbc With Differential Ord2 Lymph% 31.0 % 06/05/2016 Cbc With Differential Ord2 MCH 29.6 pg 06/05/2016 Cbc With Differential Ord2 [place]% 10.4 % 06/05/2016 Cbc With Differential Ord2 MCHC 34.6 pg 06/05/2016 Cbc With Differential Ord2 Eos% 1.6 % 06/05/2016 Cbc With Differential Ord2 Baso% 0.3 % 06/05/2016 Cbc With Differential Ord2 PLT 218 K/ul 06/05/2016 Cbc With Differential Ord2 Neut ABS# 2.18 K/ul 06/05/2016 Cbc With Differential Ord2 RDW 14.9 % 06/05/2016 Cbc With Differential Ord2 Lymph ABS# 1.19 K/ul 06/05/2016 Cbc With Differential Ord2 [place] ABS# 0.4 K/ul 06/05/2016 Cbc With Differential Ord2 Eos ABS# 0.1 K/ul 06/05/2016 Cbc With Differential Ord2 Baso ABS# 0.0 K/ul 06/05/2016 C-Reactive Protein Qnt Crqnt CRP 0.7 mg/dl 06/05/2016 Sed Rate Ord21 ESR 4 mm/hr 06/05/2016 Ra Factor Nea704 RA FACTOR 21.4 IU/ml 06/05/2016 Uric Acid Ord77 Uric A 6.2 mg/dL 06/05/2016 Lipid Ord30 CHOL 193 mg/dL 09/26/2015 Lipid Ord30 HDL 38.0 mg/dl 09/26/2015 Lipid Ord30 TRIG 187 mg/dL 09/26/2015 Lipid Ord30 LDL 118 mg/dL 09/26/2015 Lipid Ord30 C/HDL 5.1 Ratio 09/26/2015 Tsh Ord6 hTSH II 1.78 uIU/mL 09/26/2015 Comp Metabolic Wcv941 NA 135 mEq/L 09/26/2015 Comp Metabolic Kdv286 K 4.3 mEq/L 09/26/2015 Comp Metabolic Fvi070 CL 102 mEq/L 09/26/2015 Comp Metabolic Csp690 CO2 30.0 mEq/L 09/26/2015 Comp Metabolic Tcj010 ANION GAP 7 09/26/2015 Comp Metabolic Krb048 GLUCOSE 105 mg/dL 09/26/2015 Comp Metabolic Qho322 Creat 0.9 mg/dL 09/26/2015 Comp Metabolic Ipn454 eGFR 102 ml/min/1.73m2 09/26/2015 Comp Metabolic Xhg131 BUN 13 mg/dL 09/26/2015 Comp Metabolic Fbd168 B/C Ratio 14.4 Ratio 09/26/2015 Comp Metabolic Goa455 CALCIUM 9.1 mg/dL 09/26/2015 Comp Metabolic Tok413 ALK PHOS 53 U/L 09/26/2015 Comp Metabolic Mzj543 AST(SGOT) 18 U/L 09/26/2015 Comp Metabolic Wdi260 ALT(SGPT) 27 U/L 09/26/2015 Comp Metabolic Jsu278 BILI T 0.5 mg/dL 09/26/2015 Comp Metabolic Ukx540 ALBUMIN 4.4 g/dL 09/26/2015 Comp Metabolic Mtr256 TPRO 6.9 g/dL 09/26/2015 Comp Metabolic Nqx521 GLOB 2.5 g/dL 09/26/2015 Comp Metabolic Jgy394 A/G Ratio 1.7 Ratio 09/26/2015 Comp Metabolic Qsf626 Osmo 271 mOsmo 09/26/2015 Cbc With Differential Ord2 WBC 4.48 K/ul 09/26/2015 Cbc With Differential Ord2 RBC 5.41 M/ul 09/26/2015 Cbc With Differential Ord2 HGB 15.7 g/dl 09/26/2015 Cbc With Differential Ord2 HCT 46.7 % 09/26/2015 Cbc With Differential Ord2 Neut% 48.9 % 09/26/2015 Cbc With Differential Ord2 MCV 86.3 fl 09/26/2015 Cbc With Differential Ord2 Lymph% 36.6 % 09/26/2015 Cbc With Differential Ord2 MCH 29.0 pg 09/26/2015 Cbc With Differential Ord2 [place]% 11.4 % 09/26/2015 Cbc With Differential Ord2 Eos% 2.9 % 09/26/2015 Cbc With Differential Ord2 MCHC 33.6 pg 09/26/2015 Cbc With Differential Ord2 PLT 215 K/ul 09/26/2015 Cbc With Differential Ord2 Baso% 0.2 % 09/26/2015 Cbc With Differential Ord2 Neut ABS# 2.19 K/ul 09/26/2015 Cbc With Differential Ord2 RDW 15.0 % 09/26/2015 Cbc With Differential Ord2 Lymph ABS# 1.64 K/ul 09/26/2015 Cbc With Differential Ord2 [place] ABS# 0.5 K/ul 09/26/2015 Cbc With Differential Ord2 Eos ABS# 0.1 K/ul 09/26/2015 Cbc With Differential Ord2 Baso ABS# 0.0 K/ul 09/26/2015 Cbc With Differential Ord2 New Analyzer Notice Please note new ref ranges starting 05-23-2015 due to implemntation of new five part differential hematolgy analyzer. 09/26/2015 Review of Systems System Result Effective Dates Constitutional No recent illness 2017 Constitutional anorexia 06/11/2017 Constitutional No chills 06/11/2017 Constitutional No diaphoresis 06/11/2017 Constitutional fatigue 06/11/2017 Constitutional malaise 06/11/2017 Constitutional weight loss 06/11/2017 Eyes No eye erythema 06/11/2017 Ears/Nose/Throat/Neck No nasal discharge 06/11/2017 Ears/Nose/Throat/Neck No nasal allergies 06/11/2017 Ears/Nose/Throat/Neck No dizziness 2017 Cardiovascular No chest pain/pressure 05/2017 Cardiovascular No dyspnea 06/11/2017 Respiratory No cough 06/11/2017 Respiratory No chest congestion 2017 Gastrointestinal anorexia 06/11/2017 Gastrointestinal No abdominal pain 2017 Gastrointestinal No diarrhea 06/11/2017 Gastrointestinal No constipation 2017 Gastrointestinal No gastroesophageal reflux 06/11/2017 Gastrointestinal No hematochezia 2017 Gastrointestinal No melena 06/11/2017 Gastrointestinal nausea 06/11/2017 Gastrointestinal vomiting 06/11/2017 Musculoskeletal arthralgia(s) 06/11/2017 Dermatologic No rash 06/11/2017 Neurologic No alteration of consciousness 06/11/2017 Neurologic No mental status change 2017 Constitutional No recent illness 2017 Constitutional No diaphoresis 05/28/2017 Constitutional No chills 05/28/2017 Constitutional fatigue 05/28/2017 Constitutional No fever 05/28/2017 Constitutional malaise 05/28/2017 Constitutional weight loss 05/28/2017 Eyes No eye erythema 05/28/2017 Ears/Nose/Throat/Neck No nasal discharge 05/28/2017 Ears/Nose/Throat/Neck No nasal allergies 05/28/2017 Cardiovascular No chest pain/pressure Cardiovascular No dyspnea 05/28/2017 Respiratory No cough 05/28/2017 Respiratory No chest congestion 2017 Gastrointestinal No abdominal pain 2017 Gastrointestinal No constipation 2017 Gastrointestinal No diarrhea 05/28/2017 Gastrointestinal No gastroesophageal reflux 05/28/2017 Gastrointestinal No hematochezia 2017 Gastrointestinal No melena 05/28/2017 Gastrointestinal nausea 05/28/2017 Gastrointestinal No vomiting 05/28/2017 Gastrointestinal anorexia 05/28/2017 Musculoskeletal No joint complaint 2017 Musculoskeletal arthralgia(s) 05/28/2017 Dermatologic No rash 05/28/2017 Neurologic No alteration of consciousness 05/28/2017 Neurologic No mental status change 2017 Psychiatric anxiety 05/28/2017 Psychiatric depression 05/28/2017 Constitutional No night sweats 2017 Constitutional No insomnia 05/28/2017 Constitutional No weight gain 05/28/2017 Eyes No eye discharge 05/28/2017 Eyes No eye erythema 05/28/2017 Ears/Nose/Throat/Neck dizziness 2017 Respiratory No productive sputum 2017 Genitourinary/Nephrology No dysuria 05/28 Constitutional No recent illness 2016 Constitutional No chills 04/08/2017 Constitutional No diaphoresis 04/08/2017 Constitutional No fever 04/08/2017 Eyes No eye erythema 04/08/2017 Ears/Nose/Throat/Neck No nasal discharge 04/08/2017 Ears/Nose/Throat/Neck No nasal allergies 04/08/2017 Cardiovascular No chest pain/pressure Cardiovascular No dyspnea 04/08/2017 Respiratory No cough 04/08/2017 Respiratory No chest congestion 2016 Gastrointestinal No abdominal pain 2016 Musculoskeletal joint complaint 2016 Neurologic No alteration of consciousness 04/08/2017 Neurologic No mental status change 2016 Constitutional recent illness 09/22/2016 Constitutional No chills 09/22/2016 Constitutional fatigue 09/22/2016 Constitutional No fever 09/22/2016 Constitutional malaise 09/22/2016 Eyes No eye discharge 09/22/2016 Eyes No eye erythema 09/22/2016 Ears/Nose/Throat/Neck nasal allergies Ears/Nose/Throat/Neck No nasal discharge 09/22/2016 Cardiovascular No chest pain/pressure Respiratory cough 09/22/2016 Gastrointestinal No abdominal pain 2016 Gastrointestinal No constipation 2016 Gastrointestinal No diarrhea 09/22/2016 Dermatologic No rash 09/22/2016 Neurologic No alteration of consciousness 09/22/2016 Ears/Nose/Throat/Neck dizziness 2016 Respiratory chest congestion 09/22/2016 Respiratory dyspnea on exertion 2016 Respiratory No dyspnea 09/22/2016 Respiratory wheezing 09/22/2016 Neurologic No mental status change 2016 Constitutional No recent illness 2016 Constitutional No anorexia 09/11/2016 Constitutional No night sweats 2016 Constitutional No chills 09/11/2016 Constitutional No diaphoresis 09/11/2016 Constitutional No fatigue 09/11/2016 Constitutional No fever 09/11/2016 Constitutional No insomnia 09/11/2016 Constitutional No malaise 09/11/2016 Constitutional No weight loss 09/11/2016 Constitutional No weight gain 09/11/2016 Eyes No eye discharge 09/11/2016 Eyes No eye erythema 09/11/2016 Ears/Nose/Throat/Neck dizziness 2016 Ears/Nose/Throat/Neck No nasal discharge 09/11/2016 Ears/Nose/Throat/Neck nasal allergies 08/2016 Cardiovascular No chest pain/pressure 08/2016 Cardiovascular No dyspnea 09/11/2016 Respiratory No productive sputum 2016 Respiratory No cough 09/11/2016 Gastrointestinal No abdominal pain 2016 Gastrointestinal No constipation 2016 Gastrointestinal No diarrhea 09/11/2016 Genitourinary/Nephrology No dysuria 09/11 Musculoskeletal No joint complaint 2016 Dermatologic No rash 09/11/2016 Neurologic No alteration of consciousness 09/11/2016 Constitutional No recent illness 2016 Constitutional No chills 06/05/2016 Constitutional No fever 06/05/2016 Eyes No eye erythema 06/05/2016 Ears/Nose/Throat/Neck No nasal discharge 06/05/2016 Cardiovascular No chest pain/pressure Cardiovascular No dyspnea 06/05/2016 Respiratory No cough 06/05/2016 Respiratory No dyspnea 06/05/2016 Musculoskeletal joint complaint 2016 Neurologic No alteration of consciousness 06/05/2016 Neurologic No mental status change 2016 Constitutional No recent illness 2015 Constitutional No night sweats 2015 Constitutional No chills 10/24/2015 Constitutional No fatigue 10/24/2015 Constitutional No fever 10/24/2015 Constitutional No insomnia 10/24/2015 Constitutional No malaise 10/24/2015 Eyes No blindness 10/24/2015 Eyes No vision change 10/24/2015 Ears/Nose/Throat/Neck No dental pain Ears/Nose/Throat/Neck No dizziness 2015 Ears/Nose/Throat/Neck No dysphagia 2015 Ears/Nose/Throat/Neck No headache 2015 Ears/Nose/Throat/Neck No hearing loss Ears/Nose/Throat/Neck No nasal allergies 10/24/2015 Ears/Nose/Throat/Neck No sore throat Ears/Nose/Throat/Neck No postnasal drip 10/24/2015 Ears/Nose/Throat/Neck No sinus congestion 10/24/2015 Cardiovascular No chest pain/pressure Cardiovascular No dyspnea 10/24/2015 Cardiovascular No edema 10/24/2015 Cardiovascular No exercise intolerance Cardiovascular No fatigue 10/24/2015 Cardiovascular No hypertension 2015 Cardiovascular No near-syncope/dizziness 10/24/2015 Cardiovascular No palpitations 2015 Respiratory No chest tightness 2015 Respiratory No cigarette smoking 2015 Respiratory No cough 10/24/2015 Respiratory No dyspnea on exertion 2015 Respiratory No dyspnea 10/24/2015 Respiratory No pedal edema 10/24/2015 Gastrointestinal No abdominal pain 2015 Gastrointestinal No constipation 2015 Gastrointestinal No diarrhea 10/24/2015 Gastrointestinal No gastroesophageal reflux 10/24/2015 Gastrointestinal No hematochezia 2015 Gastrointestinal No nausea 10/24/2015 Gastrointestinal No vomiting 10/24/2015 Genitourinary/Nephrology No dysuria 10/23 Genitourinary/Nephrology No impotence Genitourinary/Nephrology No nocturia Genitourinary/Nephrology No urinary urgency 10/24/2015 Genitourinary/Nephrology No urinary frequency 10/24/2015 Genitourinary/Nephrology No urinary incontinence 10/24/2015 Musculoskeletal No stiffness 10/24/2015 Musculoskeletal No swelling 10/24/2015 Musculoskeletal No arthralgia(s) 2015 Musculoskeletal No joint complaint 2015 Musculoskeletal No muscle weakness 2015 Musculoskeletal No myalgias 10/24/2015 Dermatologic mole change 10/24/2015 Dermatologic No rash 10/24/2015 Dermatologic No sores 10/24/2015 Dermatologic No scar 10/24/2015 Neurologic No ataxia 10/24/2015 Neurologic No dizziness 10/24/2015 Neurologic No dyskinesia or tremor 2015 Neurologic No gait abnormality 2015 Neurologic No headache 10/24/2015 Neurologic No neck pain 10/24/2015 Neurologic No syncope 10/24/2015 Psychiatric No anxiety 10/24/2015 Psychiatric No depression 10/24/2015 Constitutional No recent illness 2014 Constitutional No chills 10/25/2014 Constitutional No fatigue 10/25/2014 Constitutional No fever 10/25/2014 Constitutional No insomnia 10/25/2014 Constitutional No malaise 10/25/2014 Eyes No blindness 10/25/2014 Eyes No vision change 10/25/2014 Ears/Nose/Throat/Neck No dental pain Ears/Nose/Throat/Neck No dizziness 2014 Ears/Nose/Throat/Neck No dysphagia 2014 Ears/Nose/Throat/Neck No headache 2014 Ears/Nose/Throat/Neck No hearing loss Ears/Nose/Throat/Neck No nasal allergies 10/25/2014 Ears/Nose/Throat/Neck No sore throat Ears/Nose/Throat/Neck No postnasal drip 10/25/2014 Ears/Nose/Throat/Neck No sinus congestion 10/25/2014 Cardiovascular No chest pain/pressure Cardiovascular No dyspnea 10/25/2014 Cardiovascular No edema 10/25/2014 Cardiovascular No exercise intolerance Cardiovascular No fatigue 10/25/2014 Cardiovascular No near-syncope/dizziness 10/25/2014 Respiratory No chest tightness 2014 Respiratory No cough 10/25/2014 Respiratory No dyspnea 10/25/2014 Respiratory No pedal edema 10/25/2014 Gastrointestinal No abdominal pain 2014 Gastrointestinal No constipation 2014 Gastrointestinal No diarrhea 10/25/2014 Gastrointestinal No gastroesophageal reflux 10/25/2014 Gastrointestinal No nausea 10/25/2014 Gastrointestinal No vomiting 10/25/2014 Genitourinary/Nephrology No dysuria 10/25 Genitourinary/Nephrology No nocturia Genitourinary/Nephrology No urinary incontinence 10/25/2014 Musculoskeletal No stiffness 10/25/2014 Musculoskeletal No swelling 10/25/2014 Musculoskeletal No muscle weakness 2014 Musculoskeletal No myalgias 10/25/2014 Dermatologic No rash 10/25/2014 Dermatologic No sores 10/25/2014 Dermatologic No scar 10/25/2014 Neurologic No dizziness 10/25/2014 Neurologic No headache 10/25/2014 Neurologic No neck pain 10/25/2014 Neurologic No syncope 10/25/2014 Psychiatric No anxiety 10/25/2014 Psychiatric No depression 10/25/2014 Constitutional No night sweats 2014 Cardiovascular No hypertension 2014 Cardiovascular No palpitations 2014 Respiratory No cigarette smoking 2014 Respiratory No dyspnea on exertion 2014 Gastrointestinal No hematochezia 2014 Genitourinary/Nephrology No impotence Genitourinary/Nephrology No urinary frequency 10/25/2014 Genitourinary/Nephrology No urinary urgency 10/25/2014 Musculoskeletal No arthralgia(s) 2014 Musculoskeletal No joint complaint 2014 Neurologic No ataxia 10/25/2014 Neurologic No dyskinesia or tremor 2014 Neurologic No gait abnormality 2014 Dermatologic mole change 10/25/2014 Constitutional No recent illness 2012 Constitutional No chills 10/26/2012 Constitutional No fatigue 10/26/2012 Constitutional No fever 10/26/2012 Constitutional No insomnia 10/26/2012 Constitutional No malaise 10/26/2012 Cardiovascular No chest pain/pressure Cardiovascular No dyspnea 10/26/2012 Cardiovascular No edema 10/26/2012 Cardiovascular No exercise intolerance Cardiovascular No fatigue 10/26/2012 Cardiovascular No near-syncope/dizziness 10/26/2012 Respiratory No chest tightness 2012 Respiratory No cigarette smoking 2012 Respiratory No cough 10/26/2012 Respiratory No dyspnea 10/26/2012 Respiratory No pedal edema 10/26/2012 Respiratory No snoring 10/26/2012 Respiratory No wheezing 10/26/2012 Psychiatric No anxiety 10/26/2012 Psychiatric No depression 10/26/2012 Dermatologic No rash 10/26/2012 Dermatologic No scar 10/26/2012 Gastrointestinal No hemorrhoids 2012 Gastrointestinal No abdominal pain 2012 Gastrointestinal No constipation 2012 Gastrointestinal No diarrhea 10/26/2012 Gastrointestinal No gastroesophageal reflux 10/26/2012 Gastrointestinal No melena 10/26/2012 Gastrointestinal No nausea 10/26/2012 Gastrointestinal No vomiting 10/26/2012 Constitutional No chills 09/03/2012 Constitutional No fatigue 09/03/2012 Constitutional No fever 09/03/2012 Eyes No vision change 09/03/2012 Ears/Nose/Throat/Neck No dizziness 2012 Ears/Nose/Throat/Neck No headache 2012 Cardiovascular No chest pain/pressure Respiratory No dyspnea 09/03/2012 Gastrointestinal No constipation 2012 Gastrointestinal No diarrhea 09/03/2012 Gastrointestinal No nausea 09/03/2012 Gastrointestinal No vomiting 09/03/2012 Neurologic No dizziness 09/03/2012 Psychiatric No anxiety 09/03/2012 Psychiatric No depression 09/03/2012 Constitutional recent illness 12/08/2011 Constitutional No anorexia 12/08/2011 Constitutional No night sweats 2011 Constitutional No chills 12/08/2011 Constitutional No diaphoresis 12/08/2011 Constitutional No fatigue 12/08/2011 Constitutional No fever 12/08/2011 Constitutional No insomnia 12/08/2011 Constitutional No malaise 12/08/2011 Eyes No eye discharge 12/08/2011 Eyes No eye erythema 12/08/2011 Cardiovascular No chest pain/pressure Respiratory cough 12/08/2011 Respiratory chest congestion 12/08/2011 Respiratory No dyspnea on exertion 2011 Respiratory No dyspnea 12/08/2011 Gastrointestinal No vomiting 12/08/2011 Gastrointestinal No nausea 12/08/2011 Gastrointestinal No constipation 2011 Gastrointestinal No diarrhea 12/08/2011 Gastrointestinal No abdominal pain 2011 Genitourinary/Nephrology No dysuria 12/07 Musculoskeletal No joint complaint 2011 Constitutional No chills 07/29/2011 Constitutional No fatigue 07/29/2011 Eyes No vision change 07/29/2011 Respiratory No dyspnea 07/29/2011 Constitutional No fever 07/29/2011 Ears/Nose/Throat/Neck No headache 2011 Ears/Nose/Throat/Neck No dizziness 2011 Cardiovascular No chest pain/pressure Gastrointestinal No constipation 2011 Gastrointestinal No diarrhea 07/29/2011 Gastrointestinal No vomiting 07/29/2011 Gastrointestinal No nausea 07/29/2011 Neurologic No dizziness 07/29/2011 Psychiatric No anxiety 07/29/2011 Psychiatric No depression 07/29/2011 Constitutional No fever 06/26/2011 Cardiovascular No chest pain/pressure Ears/Nose/Throat/Neck No dizziness 2011 Ears/Nose/Throat/Neck No headache 2011 Gastrointestinal No constipation 2011 Gastrointestinal No diarrhea 06/26/2011 Gastrointestinal No nausea 06/26/2011 Gastrointestinal No vomiting 06/26/2011 Neurologic No dizziness 06/26/2011 Psychiatric No anxiety 06/26/2011 Psychiatric No depression 06/26/2011 Physical Exam Exam Name System Name Item Name Status Result Effective Dates Notes Full Exam - General 1994 Constitutional general appearance Overall: well developed 06/11/2017 None Full Exam - General 1994 Constitutional general appearance Overall: in no acute distress 06/11/2017 None Full Exam - General 1994 Constitutional general appearance Overall: well nourished 06/11/2017 None Full Exam - General 1994 Eyes conjunctiva /eyelids Overall: conjunctiva clear 06/11/2017 None Full Exam - General 1994 Eyes conjunctiva /eyelids Overall: cornea clear 06/11/2017 None Full Exam - General 1994 Eyes conjunctiva /eyelids Overall: eyelids normal 06/11/2017 None Full Exam - General 1994 Ears/Nose/Throat lips/teeth/gingiva Overall: benign lips 06/11/2017 None Full Exam - General 1994 Ears/Nose/Throat oral cavity/pharynx/larynx Overall: oral mucosa clear 06/11/2017 None Full Exam - General 1994 Respiratory respiratory effort/rhythm Overall: normal rate 06/11/2017 None Full Exam - General 1994 Respiratory respiratory effort/rhythm Overall: no retractions 06/11/2017 None Full Exam - General 1994 Respiratory auscultation Overall: breath sounds clear bilaterally 06/11/2017 None Full Exam - General 1994 Cardiovascular auscultation of heart Overall: regular rate 06/11/2017 None Full Exam - General 1994 Cardiovascular auscultation of heart Overall: normal heart sounds 06/11/2017 None Full Exam - General 1994 Abdomen abdominal exam Overall: normal bowel sounds 06/11/2017 None Full Exam - General 1994 Abdomen abdominal exam Overall: no tenderness 06/11/2017 None Full Exam - General 1994 Musculoskeletal gait and station Overall: normal gait 06/11/2017 None Full Exam - General 1994 Musculoskeletal gait and station Overall: normal station 06/11/2017 None Full Exam - General 1994 Musculoskeletal head and neck Overall: head atraumatic 06/11/2017 None Full Exam - General 1994 Neurologic cranial nerves Overall: crainial nerves 2 - 12 grossly intact 06/11/2017 None Full Exam - General 1994 Psychiatric orientation/consciousness Overall: oriented to person, place and time 06/11/2017 None Full Exam - General 1994 Psychiatric mood and affect Overall: normal mood and affect 06/11/2017 None Full Exam - General 1994 Psychiatric appearance Overall: well-groomed, good eye contact 06/11/2017 None Full Exam - General 1994 Constitutional general appearance Hygiene/Attention to Grooming: good hygiene 05/28/2017 None Full Exam - General 1994 Eyes conjunctiva /eyelids Overall: conjunctiva clear 05/28/2017 None Full Exam - General 1994 Eyes conjunctiva /eyelids Overall: cornea clear 05/28/2017 None Full Exam - General 1994 Eyes conjunctiva /eyelids Overall: eyelids normal 05/28/2017 None Full Exam - General 1994 Eyes pupils and irises Overall: pupils equal, round, reactive to light and accomodation 05/28/2017 None Full Exam - General 1994 Ears/Nose/Throat otoscopic exam Overall: external auditory canals clear 05/28/2017 None Full Exam - General 1994 Ears/Nose/Throat otoscopic exam Overall: tympanic membranes clear 05/28/2017 None Full Exam - General 1994 Ears/Nose/Throat hearing assessment Overall: hearing intact bilaterally 05/28/2017 None Full Exam - General 1994 Ears/Nose/Throat lips/teeth/gingiva Overall: benign lips 05/28/2017 None Full Exam - General 1994 Ears/Nose/Throat lips/teeth/gingiva Overall: normal dentition 05/28/2017 None Full Exam - General 1994 Ears/Nose/Throat lips/teeth/gingiva Overall: benign gingiva 05/28/2017 None Full Exam - General 1994 Ears/Nose/Throat oral cavity/pharynx/larynx Overall: oral mucosa clear 05/28/2017 None Full Exam - General 1994 Ears/Nose/Throat oral cavity/pharynx/larynx Overall: oropharyngeal mucosa clear 05/28/2017 None Full Exam - General 1994 Respiratory auscultation Overall: breath sounds clear bilaterally 05/28/2017 None Full Exam - General 1994 Respiratory respiratory effort/rhythm Overall: no retractions 05/28/2017 None Full Exam - General 1994 Respiratory respiratory effort/rhythm Overall: normal rate 05/28/2017 None Full Exam - General 1994 Cardiovascular extremities Overall: no clubbing 05/28/2017 None Full Exam - General 1994 Cardiovascular auscultation of heart Overall: regular rate 05/28/2017 None Full Exam - General 1994 Cardiovascular auscultation of heart Overall: normal heart sounds 05/28/2017 None Full Exam - General 1994 Abdomen abdominal exam Overall: no tenderness 05/28/2017 None Full Exam - General 1994 Abdomen abdominal exam Overall: normal bowel sounds 05/28/2017 None Full Exam - General 1994 Lymphatic neck nodes Overall: anterior cervical chain benign 05/28/2017 None Full Exam - General 1994 Lymphatic neck nodes Overall: posterior cervical chain benign 05/28/2017 None Full Exam - General 1994 Musculoskeletal spine, ribs and pelvis Overall: good posture 05/28/2017 None Full Exam - General 1994 Musculoskeletal gait and station Overall: normal gait 05/28/2017 None Full Exam - General 1994 Musculoskeletal gait and station Overall: normal station 05/28/2017 None Full Exam - General 1994 Musculoskeletal head and neck Overall: head atraumatic 05/28/2017 None Full Exam - General 1994 Neurologic cranial nerves Overall: crainial nerves 2 - 12 grossly intact 05/28/2017 None Full Exam - General 1994 Psychiatric orientation/consciousness Overall: oriented to person, place and time 05/28/2017 None Full Exam - General 1994 Constitutional general appearance Overall: well developed 05/28/2017 None Full Exam - General 1994 Constitutional general appearance Overall: well nourished 05/28/2017 None Full Exam - General 1994 Constitutional general appearance Evidence of Distress: mild distress 05/28/2017 None Full Exam - General 1994 Constitutional general appearance Evidence of Distress: tearful 05/28/2017 None Full Exam - General 1994 Ears/Nose/Throat otoscopic exam Tympanic membrane: air- fluid level 05/28/2017 None Full Exam - General 1994 Psychiatric mood and affect Mood: flat 05/28/2017 None Full Exam - General 1994 Psychiatric mood and affect Mood: depressed 05/28/2017 None Full Exam - General 1994 Psychiatric mood and affect Mood: anxious 05/28/2017 None Full Exam - General 1994 Psychiatric mood and affect Affect: flat 05/28/2017 None Full Exam - Orthopedics Constitutional general appearance Overall: well nourished 04/08/2017 None Full Exam - Orthopedics Constitutional general appearance Overall: well developed 04/08/2017 None Full Exam - Orthopedics Constitutional general appearance Overall: in no acute distress 04/08/2017 None Full Exam - Orthopedics Eyes conjunctiva/ eyelids Overall: conjunctiva clear 04/08/2017 None Full Exam - Orthopedics Eyes conjunctiva/ eyelids Overall: eyelids normal 04/08/2017 None Full Exam - Orthopedics Eyes conjunctiva/ eyelids Overall: cornea clear 04/08/2017 None Full Exam - Orthopedics Ears/Nose/Throat oral cavity/pharynx/larynx Overall: oral mucosa clear 04/08/2017 None Full Exam - Orthopedics Ears/Nose/Throat lips/teeth/gingiva Overall: benign lips 04/08/2017 None Full Exam - Orthopedics Respiratory respiratory effort/rhythm Overall: no retractions 04/08/2017 None Full Exam - Orthopedics Respiratory respiratory effort/rhythm Overall: normal rate 04/08/2017 None Full Exam - Orthopedics Respiratory auscultation Overall: breath sounds clear bilaterally 04/08/2017 None Full Exam - Orthopedics MS: left upper extremity insp & palp - LUE Wrist: swelling 04/08/2017 None Full Exam - Orthopedics MS: left upper extremity insp & palp - LUE Wrist: tender 04/08/2017 None Full Exam - Orthopedics MS: left upper extremity range of motion - LUE Wrist: pain with extension 04/08/2017 None Full Exam - Orthopedics MS: left upper extremity range of motion - LUE Wrist: pain with flexion 04/08/2017 None Full Exam - Orthopedics Psychiatric orientation/consciousness Overall: oriented to person, place and time 04/08/2017 None Full Exam - Orthopedics Psychiatric mood and affect Overall: normal mood and affect 04/08/2017 None Full Exam - Orthopedics Psychiatric appearance Overall: well-groomed, good eye contact 04/08/2017 None Full Exam - General 1994 Constitutional general appearance Hygiene/Attention to Grooming: good hygiene 09/22/2016 None Full Exam - General 1994 Eyes conjunctiva /eyelids Overall: conjunctiva clear 09/22/2016 None Full Exam - General 1994 Eyes conjunctiva /eyelids Overall: eyelids normal 09/22/2016 None Full Exam - General 1994 Ears/Nose/Throat otoscopic exam Overall: external auditory canals clear 09/22/2016 None Full Exam - General 1994 Ears/Nose/Throat otoscopic exam Overall: tympanic membranes clear 09/22/2016 None Full Exam - General 1994 Ears/Nose/Throat lips/teeth/gingiva Overall: benign lips 09/22/2016 None Full Exam - General 1994 Ears/Nose/Throat oral cavity/pharynx/larynx Overall: oral mucosa clear 09/22/2016 None Full Exam - General 1994 Ears/Nose/Throat oral cavity/pharynx/larynx Overall: oropharyngeal mucosa clear 09/22/2016 None Full Exam - General 1994 Respiratory respiratory effort/rhythm Overall: no retractions 09/22/2016 None Full Exam - General 1994 Respiratory respiratory effort/rhythm Overall: normal rate 09/22/2016 None Full Exam - General 1994 Cardiovascular auscultation of heart Overall: regular rate 09/22/2016 None Full Exam - General 1994 Cardiovascular auscultation of heart Overall: normal heart sounds 09/22/2016 None Full Exam - General 1994 Musculoskeletal spine, ribs and pelvis Overall: good posture 09/22/2016 None Full Exam - General 1994 Musculoskeletal gait and station Overall: normal gait 09/22/2016 None Full Exam - General 1994 Musculoskeletal gait and station Overall: normal station 09/22/2016 None Full Exam - General 1994 Musculoskeletal head and neck Overall: head atraumatic 09/22/2016 None Full Exam - General 1994 Neurologic cranial nerves Overall: crainial nerves 2 - 12 grossly intact 09/22/2016 None Full Exam - General 1994 Psychiatric orientation/consciousness Overall: oriented to person, place and time 09/22/2016 None Full Exam - General 1994 Psychiatric mood and affect Overall: normal mood and affect 09/22/2016 None Full Exam - General 1994 Constitutional general appearance Overall: well developed 09/22/2016 None Full Exam - General 1994 Constitutional general appearance Overall: in no acute distress 09/22/2016 None Full Exam - General 1994 Constitutional general appearance Overall: well nourished 09/22/2016 None Full Exam - General 1994 Respiratory auscultation Lower lung field: expiratory wheezes 09/22/2016 None Full Exam - General 1994 Lymphatic neck nodes Overall: posterior cervical chain benign 09/22/2016 None Full Exam - General 1994 Lymphatic neck nodes Overall: anterior cervical chain benign 09/22/2016 None Full Exam - General 1994 Constitutional general appearance Development: well developed 09/11/2016 None Full Exam - General 1994 Constitutional general appearance Development: appears stated age 0509/11/2016 None Full Exam - General 1994 Constitutional general appearance Hygiene/Attention to Grooming: good hygiene 09/11/2016 None Full Exam - General 1994 Eyes conjunctiva /eyelids Overall: conjunctiva clear 09/11/2016 None Full Exam - General 1994 Eyes conjunctiva /eyelids Overall: cornea clear 09/11/2016 None Full Exam - General 1994 Eyes conjunctiva /eyelids Overall: eyelids normal 09/11/2016 None Full Exam - General 1994 Eyes pupils and irises Overall: pupils equal, round, reactive to light and accomodation 09/11/2016 None Full Exam - General 1994 Ears/Nose/Throat external ear Overall: normal appearance 09/11/2016 None Full Exam - General 1994 Ears/Nose/Throat external nose Overall: benign appearance 09/11/2016 None Full Exam - General 1994 Ears/Nose/Throat otoscopic exam Overall: external auditory canals clear 09/11/2016 None Full Exam - General 1994 Ears/Nose/Throat otoscopic exam Overall: tympanic membranes clear 09/11/2016 None Full Exam - General 1994 Ears/Nose/Throat hearing assessment Overall: hearing intact bilaterally 09/11/2016 None Full Exam - General 1994 Ears/Nose/Throat lips/teeth/gingiva Overall: benign lips 09/11/2016 None Full Exam - General 1994 Ears/Nose/Throat lips/teeth/gingiva Overall: normal dentition 09/11/2016 None Full Exam - General 1994 Ears/Nose/Throat lips/teeth/gingiva Overall: benign gingiva 09/11/2016 None Full Exam - General 1994 Ears/Nose/Throat oral cavity/pharynx/larynx Overall: oral mucosa clear 09/11/2016 None Full Exam - General 1994 Ears/Nose/Throat oral cavity/pharynx/larynx Overall: oropharyngeal mucosa clear 09/11/2016 None Full Exam - General 1994 Ears/Nose/Throat oral cavity/pharynx/larynx Overall: hypopharynx benign 09/11/2016 None Full Exam - General 1994 Ears/Nose/Throat oral cavity/pharynx/larynx Overall: no masses 09/11/2016 None Full Exam - General 1994 Neck thyroid Overall: nontender 2016 None Full Exam - General 1994 Neck thyroid Overall: no mass lesions 09/11/2016 None Full Exam - General 1994 Respiratory auscultation Overall: breath sounds clear bilaterally 09/11/2016 None Full Exam - General 1994 Respiratory respiratory effort/rhythm Overall: no retractions 09/11/2016 None Full Exam - General 1994 Respiratory respiratory effort/rhythm Overall: normal rate 09/11/2016 None Full Exam - General 1994 Cardiovascular inspection of carotid pulses Overall: strong, bilaterally equal, no bruits 09/11/2016 None Full Exam - General 1994 Cardiovascular extremities Overall: no clubbing 09/11/2016 None Full Exam - General 1994 Cardiovascular auscultation of heart Overall: regular rate 09/11/2016 None Full Exam - General 1994 Cardiovascular auscultation of heart Overall: normal heart sounds 09/11/2016 None Full Exam - General 1994 Cardiovascular auscultation of heart Overall: no murmurs 09/11/2016 None Full Exam - General 1994 Abdomen abdominal exam Overall: no tenderness 09/11/2016 None Full Exam - General 1994 Abdomen abdominal exam Overall: normal bowel sounds 09/11/2016 None Full Exam - General 1994 Abdomen liver and spleen exam Overall: no hepatosplenomegaly 09/11/2016 None Full Exam - General 1994 Lymphatic neck nodes Overall: anterior cervical chain benign 09/11/2016 None Full Exam - General 1994 Lymphatic neck nodes Overall: posterior cervical chain benign 09/11/2016 None Full Exam - General 1994 Musculoskeletal digits and nails Digits: a normal exam 09/11/2016 None Full Exam - General 1994 Musculoskeletal spine, ribs and pelvis Overall: spine benign 09/11/2016 None Full Exam - General 1994 Musculoskeletal spine, ribs and pelvis Overall: sacroiliac joint benign 09/11/2016 None Full Exam - General 1994 Musculoskeletal spine, ribs and pelvis Overall: good posture 09/11/2016 None Full Exam - General 1994 Musculoskeletal gait and station Overall: normal gait 09/11/2016 None Full Exam - General 1994 Musculoskeletal gait and station Overall: normal station 09/11/2016 None Full Exam - General 1994 Musculoskeletal head and neck Overall: head atraumatic 09/11/2016 None Full Exam - General 1994 Musculoskeletal head and neck Overall: cervical spine benign 09/11/2016 None Full Exam - General 1994 Neurologic deep tendon reflexes Overall: deep tendon reflexes intact 09/11/2016 None Full Exam - General 1994 Neurologic cranial nerves Overall: crainial nerves 2 - 12 grossly intact 09/11/2016 None Full Exam - General 1994 Psychiatric orientation/consciousness Overall: oriented to person, place and time 09/11/2016 None Full Exam - General 1994 Psychiatric mood and affect Overall: normal mood and affect 09/11/2016 None Full Exam - Orthopedics Constitutional general appearance Overall: well nourished 06/05/2016 None Full Exam - Orthopedics Constitutional general appearance Overall: well developed 06/05/2016 None Full Exam - Orthopedics Constitutional general appearance Overall: in no acute distress 06/05/2016 None Full Exam - Orthopedics Eyes conjunctiva/ eyelids Overall: conjunctiva clear 06/05/2016 None Full Exam - Orthopedics Eyes conjunctiva/ eyelids Overall: eyelids normal 06/05/2016 None Full Exam - Orthopedics Ears/Nose/Throat lips/teeth/gingiva Overall: benign lips 06/05/2016 None Full Exam - Orthopedics Ears/Nose/Throat oral cavity/pharynx/larynx Overall: oral mucosa clear 06/05/2016 None Full Exam - Orthopedics Respiratory respiratory effort/rhythm Overall: no retractions 06/05/2016 None Full Exam - Orthopedics Respiratory respiratory effort/rhythm Overall: normal rate 06/05/2016 None Full Exam - Orthopedics Psychiatric orientation/consciousness Overall: oriented to person, place and time 06/05/2016 None Full Exam - Orthopedics Psychiatric mood and affect Overall: normal mood and affect 06/05/2016 None Full Exam - Orthopedics Psychiatric appearance Overall: well-groomed, good eye contact 06/05/2016 None Full Exam - Orthopedics MS: right upper extremity insp & palp - RUE Wrist: redness 06/05/2016 None Full Exam - Orthopedics MS: right upper extremity insp & palp - RUE Wrist: joint swelling 06/05/2016 None Full Exam - Orthopedics MS: right upper extremity range of motion - RUE Wrist: pain with extension 06/05/2016 None Full Exam - General 1994 Constitutional general appearance Development: well developed 10/24/2015 None Full Exam - General 1994 Constitutional general appearance Development: appears stated age 0610/24/2015 None Full Exam - General 1994 Constitutional general appearance Hygiene/Attention to Grooming: good hygiene 10/24/2015 None Full Exam - General 1994 Eyes conjunctiva /eyelids Overall: conjunctiva clear 10/24/2015 None Full Exam - General 1994 Eyes conjunctiva /eyelids Overall: cornea clear 10/24/2015 None Full Exam - General 1994 Eyes conjunctiva /eyelids Overall: eyelids normal 10/24/2015 None Full Exam - General 1994 Eyes pupils and irises Overall: pupils equal, round, reactive to light and accomodation 10/24/2015 None Full Exam - General 1994 Ears/Nose/Throat external ear Overall: normal appearance 10/24/2015 None Full Exam - General 1994 Ears/Nose/Throat external nose Overall: benign appearance 10/24/2015 None Full Exam - General 1994 Ears/Nose/Throat otoscopic exam Overall: external auditory canals clear 10/24/2015 None Full Exam - General 1994 Ears/Nose/Throat otoscopic exam Overall: tympanic membranes clear 10/24/2015 None Full Exam - General 1994 Ears/Nose/Throat hearing assessment Overall: hearing intact bilaterally 10/24/2015 None Full Exam - General 1994 Ears/Nose/Throat lips/teeth/gingiva Overall: benign lips 10/24/2015 None Full Exam - General 1994 Ears/Nose/Throat lips/teeth/gingiva Overall: normal dentition 10/24/2015 None Full Exam - General 1994 Ears/Nose/Throat lips/teeth/gingiva Overall: benign gingiva 10/24/2015 None Full Exam - General 1994 Ears/Nose/Throat oral cavity/pharynx/larynx Overall: oral mucosa clear 10/24/2015 None Full Exam - General 1994 Ears/Nose/Throat oral cavity/pharynx/larynx Overall: oropharyngeal mucosa clear 10/24/2015 None Full Exam - General 1994 Ears/Nose/Throat oral cavity/pharynx/larynx Overall: hypopharynx benign 10/24/2015 None Full Exam - General 1994 Ears/Nose/Throat oral cavity/pharynx/larynx Overall: no masses 10/24/2015 None Full Exam - General 1994 Neck thyroid Overall: nontender 2015 None Full Exam - General 1994 Neck thyroid Overall: no mass lesions 10/24/2015 None Full Exam - General 1994 Respiratory auscultation Overall: breath sounds clear bilaterally 10/24/2015 None Full Exam - General 1994 Respiratory respiratory effort/rhythm Overall: no retractions 10/24/2015 None Full Exam - General 1994 Respiratory respiratory effort/rhythm Overall: normal rate 10/24/2015 None Full Exam - General 1994 Cardiovascular inspection of carotid pulses Overall: strong, bilaterally equal, no bruits 10/24/2015 None Full Exam - General 1994 Cardiovascular extremities Overall: no clubbing 10/24/2015 None Full Exam - General 1994 Cardiovascular auscultation of heart Overall: regular rate 10/24/2015 None Full Exam - General 1994 Cardiovascular auscultation of heart Overall: normal heart sounds 10/24/2015 None Full Exam - General 1994 Cardiovascular auscultation of heart Overall: no murmurs 10/24/2015 None Full Exam - General 1994 Abdomen abdominal exam Overall: no tenderness 10/24/2015 None Full Exam - General 1994 Abdomen abdominal exam Overall: normal bowel sounds 10/24/2015 None Full Exam - General 1994 Abdomen liver and spleen exam Overall: no hepatosplenomegaly 10/24/2015 None Full Exam - General 1994 Lymphatic neck nodes Overall: anterior cervical chain benign 10/24/2015 None Full Exam - General 1994 Lymphatic neck nodes Overall: posterior cervical chain benign 10/24/2015 None Full Exam - General 1994 Musculoskeletal digits and nails Digits: a normal exam 10/24/2015 None Full Exam - General 1994 Musculoskeletal spine, ribs and pelvis Overall: spine benign 10/24/2015 None Full Exam - General 1994 Musculoskeletal spine, ribs and pelvis Overall: sacroiliac joint benign 10/24/2015 None Full Exam - General 1994 Musculoskeletal spine, ribs and pelvis Overall: good posture 10/24/2015 None Full Exam - General 1994 Musculoskeletal gait and station Overall: normal gait 10/24/2015 None Full Exam - General 1994 Musculoskeletal gait and station Overall: normal station 10/24/2015 None Full Exam - General 1994 Musculoskeletal head and neck Overall: head atraumatic 10/24/2015 None Full Exam - General 1994 Musculoskeletal head and neck Overall: cervical spine benign 10/24/2015 None Full Exam - General 1994 Integument inspection of skin Overall: few scattered moles, no gross abnormalities 10/24/2015 dermatofibroma of leg, darkening of skin on lower back. Full Exam - General 1994 Neurologic deep tendon reflexes Overall: deep tendon reflexes intact 10/24/2015 None Full Exam - General 1994 Neurologic cranial nerves Overall: crainial nerves 2 - 12 grossly intact 10/24/2015 None Full Exam - General 1994 Psychiatric orientation/consciousness Overall: oriented to person, place and time 10/24/2015 None Full Exam - General 1994 Psychiatric mood and affect Overall: normal mood and affect 10/24/2015 None Full Exam - General 1994 Constitutional general appearance Development: well developed 10/25/2014 None Full Exam - General 1994 Constitutional general appearance Development: appears stated age 0610/25/2014 None Full Exam - General 1994 Constitutional general appearance Hygiene/Attention to Grooming: good hygiene 10/25/2014 None Full Exam - General 1994 Eyes conjunctiva /eyelids Overall: conjunctiva clear 10/25/2014 None Full Exam - General 1994 Eyes conjunctiva /eyelids Overall: cornea clear 10/25/2014 None Full Exam - General 1994 Eyes conjunctiva /eyelids Overall: eyelids normal 10/25/2014 None Full Exam - General 1994 Eyes pupils and irises Overall: pupils equal, round, reactive to light and accomodation 10/25/2014 None Full Exam - General 1994 Ears/Nose/Throat otoscopic exam Overall: external auditory canals clear 10/25/2014 None Full Exam - General 1994 Ears/Nose/Throat otoscopic exam Overall: tympanic membranes clear 10/25/2014 None Full Exam - General 1994 Ears/Nose/Throat lips/teeth/gingiva Overall: benign lips 10/25/2014 None Full Exam - General 1994 Ears/Nose/Throat lips/teeth/gingiva Overall: normal dentition 10/25/2014 None Full Exam - General 1994 Ears/Nose/Throat oral cavity/pharynx/larynx Overall: oral mucosa clear 10/25/2014 None Full Exam - General 1994 Ears/Nose/Throat oral cavity/pharynx/larynx Overall: oropharyngeal mucosa clear 10/25/2014 None Full Exam - General 1994 Ears/Nose/Throat oral cavity/pharynx/larynx Overall: hypopharynx benign 10/25/2014 None Full Exam - General 1994 Ears/Nose/Throat oral cavity/pharynx/larynx Overall: no masses 10/25/2014 None Full Exam - General 1994 Respiratory auscultation Overall: breath sounds clear bilaterally 10/25/2014 None Full Exam - General 1994 Respiratory respiratory effort/rhythm Overall: no retractions 10/25/2014 None Full Exam - General 1994 Respiratory respiratory effort/rhythm Overall: normal rate 10/25/2014 None Full Exam - General 1994 Cardiovascular extremities Overall: no clubbing 10/25/2014 None Full Exam - General 1994 Cardiovascular auscultation of heart Overall: regular rate 10/25/2014 None Full Exam - General 1994 Cardiovascular auscultation of heart Overall: normal heart sounds 10/25/2014 None Full Exam - General 1994 Abdomen abdominal exam Overall: no tenderness 10/25/2014 None Full Exam - General 1994 Abdomen abdominal exam Overall: normal bowel sounds 10/25/2014 None Full Exam - General 1994 Lymphatic neck nodes Overall: anterior cervical chain benign 10/25/2014 None Full Exam - General 1994 Lymphatic neck nodes Overall: posterior cervical chain benign 10/25/2014 None Full Exam - General 1994 Musculoskeletal spine, ribs and pelvis Overall: spine benign 10/25/2014 None Full Exam - General 1994 Musculoskeletal spine, ribs and pelvis Overall: sacroiliac joint benign 10/25/2014 None Full Exam - General 1994 Musculoskeletal spine, ribs and pelvis Overall: good posture 10/25/2014 None Full Exam - General 1994 Musculoskeletal head and neck Overall: head atraumatic 10/25/2014 None Full Exam - General 1994 Musculoskeletal head and neck Overall: cervical spine benign 10/25/2014 None Full Exam - General 1994 Neurologic deep tendon reflexes Overall: deep tendon reflexes intact 10/25/2014 None Full Exam - General 1994 Neurologic cranial nerves Overall: crainial nerves 2 - 12 grossly intact 10/25/2014 None Full Exam - General 1994 Psychiatric orientation/consciousness Overall: oriented to person, place and time 10/25/2014 None Full Exam - General 1994 Psychiatric mood and affect Overall: normal mood and affect 10/25/2014 None Full Exam - General 1994 Ears/Nose/Throat external ear Overall: normal appearance 10/25/2014 None Full Exam - General 1994 Ears/Nose/Throat external nose Overall: benign appearance 10/25/2014 None Full Exam - General 1994 Ears/Nose/Throat hearing assessment Overall: hearing intact bilaterally 10/25/2014 None Full Exam - General 1994 Ears/Nose/Throat lips/teeth/gingiva Overall: benign gingiva 10/25/2014 None Full Exam - General 1994 Neck thyroid Overall: no mass lesions 10/25/2014 None Full Exam - General 1994 Neck thyroid Overall: nontender 2014 None Full Exam - General 1994 Cardiovascular inspection of carotid pulses Overall: strong, bilaterally equal, no bruits 10/25/2014 None Full Exam - General 1994 Cardiovascular auscultation of heart Overall: no murmurs 10/25/2014 None Full Exam - General 1994 Abdomen liver and spleen exam Overall: no hepatosplenomegaly 10/25/2014 None Full Exam - General 1994 Musculoskeletal digits and nails Digits: a normal exam 10/25/2014 None Full Exam - General 1994 Musculoskeletal gait and station Overall: normal gait 10/25/2014 None Full Exam - General 1994 Musculoskeletal gait and station Overall: normal station 10/25/2014 None Full Exam - General 1994 Integument inspection of skin Overall: few scattered moles, no gross abnormalities 10/25/2014 dermatofibroma of leg, darkening of skin on lower back. Full Exam - General 1994 Constitutional general appearance Overall: well nourished 10/26/2012 None Full Exam - General 1994 Constitutional general appearance Overall: well developed 10/26/2012 None Full Exam - General 1994 Constitutional general appearance Overall: in no acute distress 10/26/2012 None Full Exam - General 1994 Psychiatric orientation/consciousness Overall: oriented to person, place and time 10/26/2012 None Full Exam - General 1994 Psychiatric mood and affect Mood: happy 10/26/2012 None Full Exam - General 1994 Psychiatric mood and affect Overall: normal mood and affect 10/26/2012 None Full Exam - General 1994 Musculoskeletal gait and station Overall: normal gait 10/26/2012 None Full Exam - General 1994 Musculoskeletal gait and station Overall: normal station 10/26/2012 None Full Exam - General 1994 Cardiovascular auscultation of heart Overall: regular rate 10/26/2012 None Full Exam - General 1994 Cardiovascular auscultation of heart Overall: normal heart sounds 10/26/2012 None Full Exam - General 1994 Cardiovascular auscultation of heart Overall: no murmurs 10/26/2012 None Full Exam - General 1994 Respiratory respiratory effort/rhythm Overall: normal rate 10/26/2012 None Full Exam - General 1994 Respiratory respiratory effort/rhythm Overall: no retractions 10/26/2012 None Full Exam - General 1994 Respiratory auscultation Overall: breath sounds clear bilaterally 10/26/2012 None Full Exam - General 1994 Musculoskeletal lower extremity Inspection - ankle: a normal exam 10/26/2012 None Full Exam - General 1994 Musculoskeletal lower extremity Palpation - ankle: a normal exam 10/26/2012 None Full Exam - General 1994 Musculoskeletal lower extremity Palpation - ankle: tender @ achilles tendon 10/26/2012 None Full Exam - General 1994 Musculoskeletal lower extremity Palpation - ankle: tender @ plantar fascia insertion 10/26/2012 None Full Exam - General 1994 Ears/Nose/Throat oral cavity/pharynx/larynx Overall: oropharyngeal mucosa clear 10/26/2012 None Full Exam - General 1994 Ears/Nose/Throat oral cavity/pharynx/larynx Overall: no masses 10/26/2012 None Full Exam - General 1995 Ears/Nose/Throat oral cavity/pharynx/larynx Overall: oral mucosa clear 10/26/2012 None Full Exam - General 1994 Ears/Nose/Throat otoscopic exam Overall: tympanic membranes clear 10/26/2012 None Full Exam - General 1995 Ears/Nose/Throat otoscopic exam Overall: external auditory canals clear 10/26/2012 None Full Exam - General 1994 Eyes pupils and irises Overall: pupils equal, round, reactive to light and accomodation 10/26/2012 None Full Exam - General 1994 Constitutional general appearance Overall: well developed 09/03/2012 None Full Exam - General 1994 Constitutional general appearance Overall: in no acute distress 09/03/2012 None Full Exam - General 1994 Constitutional general appearance Overall: well nourished 09/03/2012 None Full Exam - General 1994 Respiratory auscultation Overall: breath sounds clear bilaterally 09/03/2012 None Full Exam - General 1994 Respiratory respiratory effort/rhythm Overall: no retractions 09/03/2012 None Full Exam - General 1994 Respiratory respiratory effort/rhythm Overall: normal rate 09/03/2012 None Full Exam - General 1994 Cardiovascular auscultation of heart Overall: regular rate 09/03/2012 None Full Exam - General 1995 Cardiovascular auscultation of heart Overall: normal heart sounds 09/03/2012 None Full Exam - General 1994 Cardiovascular auscultation of heart Overall: no murmurs 09/03/2012 None Full Exam - General 1995 Integument inspection of skin Dermatitis: erythema 09/03/2012 None Full Exam - General 1995 Integument inspection of skin Dermatitis: dryness/ flaking 09/03/2012 None Full Exam - General 1995 Integument inspection of skin Dermatitis: scaling 09/03/2012 None Full Exam - General 1995 Integument inspection of skin Dermatitis: thickened 09/03/2012 None Full Exam - General 1995 Integument inspection of skin Dermatitis: lichenification 09/03/2012 None Full Exam - General 1994 Integument inspection of skin Location: right arm 09/03/2012 None Full Exam - General 1994 Neurologic gait Overall: no ataxia, no unsteadiness 09/03/2012 None Full Exam - General 1994 Psychiatric orientation/consciousness Overall: oriented to person, place and time 09/03/2012 None Full Exam - General 1994 Psychiatric mood and affect Overall: normal mood and affect 09/03/2012 None Full Exam - General 1994 Psychiatric mood and affect Mood: happy 09/03/2012 None Full Exam - General 1994 Integument inspection of skin Location: left hand 09/03/2012 None Full Exam - General 1994 Integument inspection of skin Location: right hand 09/03/2012 None Full Exam - General 1994 Constitutional general appearance Overall: well developed 12/08/2011 None Full Exam - General 1994 Constitutional general appearance Overall: in no acute distress 12/08/2011 None Full Exam - General 1994 Constitutional general appearance Overall: well nourished 12/08/2011 None Full Exam - General 1994 Respiratory auscultation Overall: breath sounds clear bilaterally 12/08/2011 None Full Exam - General 1994 Respiratory respiratory effort/rhythm Overall: no retractions 12/08/2011 None Full Exam - General 1994 Respiratory respiratory effort/rhythm Overall: normal rate 12/08/2011 None Full Exam - General 1994 Cardiovascular auscultation of heart Overall: regular rate 12/08/2011 None Full Exam - General 1994 Cardiovascular auscultation of heart Overall: normal heart sounds 12/08/2011 None Full Exam - General 1994 Cardiovascular auscultation of heart Overall: no murmurs 12/08/2011 None Full Exam - General 1994 Integument inspection of skin Dermatitis: erythema 12/08/2011 None Full Exam - General 1994 Integument inspection of skin Dermatitis: dryness/ flaking 12/08/2011 None Full Exam - General 1994 Integument inspection of skin Dermatitis: scaling 12/08/2011 None Full Exam - General 1994 Integument inspection of skin Dermatitis: thickened 12/08/2011 None Full Exam - General 1994 Integument inspection of skin Dermatitis: lichenification 12/08/2011 None Full Exam - General 1994 Integument inspection of skin Dermatitis: excoriation 12/08/2011 over dorsum of the right hand Full Exam - General 1994 Neurologic gait Overall: no ataxia, no unsteadiness 12/08/2011 None Full Exam - General 1994 Psychiatric orientation/consciousness Overall: oriented to person, place and time 12/08/2011 None Full Exam - General 1994 Psychiatric mood and affect Overall: normal mood and affect 12/08/2011 None Full Exam - General 1994 Psychiatric mood and affect Mood: happy 12/08/2011 None Full Exam - General 1994 Ears/Nose/Throat otoscopic exam Overall: external auditory canals clear 12/08/2011 None Full Exam - General 1995 Ears/Nose/Throat otoscopic exam Overall: tympanic membranes clear 12/08/2011 None Full Exam - General 1994 Ears/Nose/Throat oral cavity/pharynx/larynx Overall: oral mucosa clear 12/08/2011 None Full Exam - General 1994 Integument inspection of skin Dermatitis: scaling 07/29/2011 None Full Exam - General 1994 Integument inspection of skin Dermatitis: thickened 07/29/2011 None Full Exam - General 1994 Integument inspection of skin Dermatitis: lichenification 07/29/2011 None Full Exam - General 1994 Neurologic gait Overall: no ataxia, no unsteadiness 07/29/2011 None Full Exam - General 1994 Psychiatric orientation/consciousness Overall: oriented to person, place and time 07/29/2011 None Full Exam - General 1994 Psychiatric mood and affect Overall: normal mood and affect 07/29/2011 None Full Exam - General 1994 Psychiatric mood and affect Mood: happy 07/29/2011 None Full Exam - General 1994 Integument inspection of skin Location: right arm 07/29/2011 None Full Exam - General 1994 Integument inspection of skin Location: left arm 07/29/2011 None Full Exam - General 1994 Constitutional general appearance Overall: well developed 07/29/2011 None Full Exam - General 1995 Constitutional general appearance Overall: in no acute distress 07/29/2011 None Full Exam - General 1995 Constitutional general appearance Overall: well nourished 07/29/2011 None Full Exam - General 1995 Respiratory auscultation Overall: breath sounds clear bilaterally 07/29/2011 None Full Exam - General 1995 Respiratory respiratory effort/rhythm Overall: no retractions 07/29/2011 None Full Exam - General 1995 Respiratory respiratory effort/rhythm Overall: normal rate 07/29/2011 None Full Exam - General 1995 Cardiovascular auscultation of heart Overall: regular rate 07/29/2011 None Full Exam - General 1995 Cardiovascular auscultation of heart Overall: normal heart sounds 07/29/2011 None Full Exam - General 1994 Cardiovascular auscultation of heart Overall: no murmurs 07/29/2011 None Full Exam - General 1994 Integument inspection of skin Dermatitis: erythema 07/29/2011 None Full Exam - General 1994 Integument inspection of skin Dermatitis: dryness/ flaking 07/29/2011 None Full Exam - General 1994 Psychiatric orientation/consciousness Overall: oriented to person, place and time 06/26/2011 None Full Exam - General 1994 Psychiatric mood and affect Mood: happy 06/26/2011 None Full Exam - General 1994 Psychiatric mood and affect Overall: normal mood and affect 06/26/2011 None Full Exam - General 1994 Neurologic gait Overall: no ataxia, no unsteadiness 06/26/2011 None Full Exam - General 1995 Integument inspection of skin Dermatitis: erythema 06/26/2011 None Full Exam - General 1994 Integument inspection of skin Dermatitis: dryness/ flaking 06/26/2011 None Full Exam - General 1994 Integument inspection of skin Dermatitis: scaling 06/26/2011 None Full Exam - General 1994 Integument inspection of skin Dermatitis: thickened 06/26/2011 None Full Exam - General 1994 Integument inspection of skin Dermatitis: lichenification 06/26/2011 None Full Exam - General 1994 Integument inspection of skin Dermatitis: excoriation 06/26/2011 over dorsum of the right hand and over the right mid abdomen Full Exam - General 1994 Integument palpation Hand: tender 06/26/2011 None Full Exam - General 1994 Cardiovascular auscultation of heart Overall: regular rate 06/26/2011 None Full Exam - General 1994 Cardiovascular auscultation of heart Overall: normal heart sounds 06/26/2011 None Full Exam - General 1994 Cardiovascular auscultation of heart Overall: no murmurs 06/26/2011 None Full Exam - General 1994 Respiratory auscultation Overall: breath sounds clear bilaterally 06/26/2011 None Full Exam - General 1994 Respiratory respiratory effort/rhythm Overall: normal rate 06/26/2011 None Full Exam - General 1994 Respiratory respiratory effort/rhythm Overall: no retractions 06/26/2011 None Full Exam - General 1994 Constitutional general appearance Overall: well nourished 06/26/2011 None Full Exam - General 1994 Constitutional general appearance Overall: well developed 06/26/2011 None Full Exam - General 1994 Constitutional general appearance Overall: in no acute distress 06/26/2011 None Procedures Procedure Codes Date TRIAMCINOLONE ACET INJ NOS CPT-4: J3301 04/08/2017 TRIAMCINOLONE ACET INJ NOS CPT-4: J3301 09/22/2016 ROCEPHIN, PER 250 MG CPT-4: J0696 12/08/2011 KETOROLAC TROMETHAMINE INJ CPT-4: J1885 12/08/2011 THER/PROPH/DIAG INJ SC/IM CPT-4: 27945 12/08/2011 TRIAMCINOLONE ACET INJ NOS CPT-4: J3301 06/26/2011 THER/PROPH/DIAG INJ SC/IM CPT-4: 31398 06/26/2011 Vital Signs Date Vital 06/11/2017 Blood Pressure 1: 122/80 Code : 8480-6 BMI: 26.6 Code : 83553-6 Heart Rate 1 : 76 bpm Height: 6'2" SpO2: 96% Weight: 210 lbs 05/28/2017 Blood Pressure 1: 130/70 Code : 8480-6 BMI: 26.9 Code : 24102-1 Heart Rate 1 : 83 bpm Height: 6'2" SpO2: 98% Weight: 212 lbs 04/08/2017 Blood Pressure 1: 122/74 Code : 8480-6 BMI: 28.1 Code : 95057-9 Heart Rate 1 : 88 bpm Height: 6'2" SpO2: 99% Weight: 222 lbs 09/22/2016 Blood Pressure 1: 128/80 Code : 8480-6 BMI: 29.4 Code : 60922-1 Heart Rate 1 : 92 bpm Height: 6'2" SpO2: 98% Temperature: 36.6 (C) / 97.8 (F) Weight: 232 lbs 09/11/2016 Blood Pressure 1: 124/78 Code : 8480-6 BMI: 29.4 Code : 10105-7 Heart Rate 1 : 78 bpm Height: 6'2" SpO2: 96% Weight: 232 lbs 06/05/2016 Blood Pressure 1: 128/82 Code : 8480-6 BMI: 31.0 Code : 01074-0 Heart Rate 1 : 80 bpm Height: 6'2" SpO2: 98% Weight: 245 lbs 10/24/2015 Blood Pressure 1: 126/74 Code : 8480-6 BMI: 29.9 Code : 42466-0 Heart Rate 1 : 71 bpm Height: 6'2" SpO2: 98% Weight: 236 lbs 10/25/2014 Blood Pressure 1: 102/74 Code : 8480-6 BMI: 30.4 Code : 07259-3 Heart Rate 1 : 76 bpm Height: 6'2" Weight: 240 lbs 10/26/2012 Blood Pressure 1: 122/82 Code : 8480-6 BMI: 32.8 Code : 32652-0 Heart Rate 1 : 72 bpm Height: 6' Respiratory Rate: 16 bpm Weight: 245 lbs 09/03/2012 Blood Pressure 1: 126/74 Code : 8480-6 BMI: 31.6 Code : 71145-6 Heart Rate 1 : 80 bpm Height: 6'2" Weight: 246 lbs 12/08/2011 Blood Pressure 1: 126/74 Code : 8480-6 Heart Rate 1: 72 bpm Respiratory Rate : 16 bpm Temperature: 36.8 (C) / 98.3 (F) Weight: 240 lbs 07/29/2011 Blood Pressure 1: 130/80 Code : 8480-6 BMI: 30.1 Code : 07118-3 Heart Rate 1 : 62 bpm Height: 6'2" Weight: 237 lbs 8 oz 06/26/2011 Blood Pressure 1: 140/72 Code : 8480-6 BMI: 32.1 Code : 85910-3 Heart Rate 1 : 68 bpm Height: 6' Respiratory Rate: 16 bpm Weight: 237 lbs Functional Status No Functional Status data History of Present Illness Symptom Name Status Result Effective Date Notes nausea Frequency of Episodes unchanged 06/11/2017 None weight loss Onset and Resolution ongoing 06/11/2017 None dizziness Quality constant 05/28/2017 None dizziness Quality acute 05/28/2017 None dizziness Onset and Resolution sudden in onset 05/28/2017 None dizziness Onset of Symptom 5 days ago 05/28/2017 None dizziness Frequency of Episodes daily 05/28/2017 None dizziness Triggers no known associated factors 05/28/2017 None dizziness Pertinent Findings nausea 05/28/2017 None wrist pain Location on the left 04/08/2017 None wrist pain Quality constant 04/08/2017 None wrist pain Onset and Resolution sudden in onset 04/08/2017 None wrist pain Onset of Symptom 24 hours ago 04/08/2017 None cough Location in the lung 09/22/2016 None cough Quality constant 09/22/2016 None cough Quality hacking 09/22/2016 None cough Quality productive 09/22/2016 None cough Onset and Resolution sudden in onset 09/22/2016 None cough Onset of Symptom 2 weeks ago 09/22/2016 None cough Frequency of Episodes daily 09/22/2016 None cough Pertinent Findings Denies chest discomfort 09/22/2016 None cough Pertinent Findings hoarseness 09/22/2016 None cough Pertinent Findings nasal congestion 09/22/2016 None cough Pertinent Findings sputum production 09/22/2016 None sinus congestion Location frontal sinuses 09/22/2016 None sinus congestion Quality pressure 09/22/2016 None sinus congestion Onset and Resolution sudden in onset 09/22/2016 None sinus congestion Onset of Symptom 2 weeks ago 09/22/2016 None sinus congestion Frequency of Episodes daily 09/22/2016 None sinus congestion Pertinent Findings cough 09/22/2016 None sinus congestion Pertinent Findings hoarseness 09/22/2016 None dizziness Quality acute 09/11/2016 None dizziness Onset and Resolution sudden in onset 09/11/2016 None dizziness Limitation on Activities moderately limits activities 09/11/2016 None dizziness Triggers head turning 09/11/2016 None dizziness Pertinent Findings blurred vision 09/11/2016 None dizziness Pertinent Findings lightheadedness 09/11/2016 None dizziness Exacerbating Factors turning the head 09/11/2016 None dizziness Exacerbating Factors medication 09/11/2016 meloxicam dizziness Onset of Symptom 5 days ago 09/11/2016 None dizziness Frequency of Episodes decreasing 09/11/2016 None wrist pain Location on the right 06/05/2016 None wrist pain Quality acute 06/05/2016 None wrist pain Limitation on Activities moderately limits activities 06/05/2016 None wrist pain Pertinent Findings Denies numbness 06/05/2016 None wrist pain Pertinent Findings redness 06/05/2016 None wrist pain Pertinent Findings stiffness 06/05/2016 None wrist pain Pertinent Findings swelling 06/05/2016 None ankle pain Location on the right 10/24/2015 None ankle pain Quality dull pain 10/24/2015 None ankle pain Quality aching 10/24/2015 None ankle pain Location achilles tendon 10/24/2015 None ankle pain Onset and Resolution sudden in onset 10/24/2015 None ankle pain Onset of Symptom 2 weeks ago 10/24/2015 None ankle pain Frequency of Episodes daily 10/24/2015 None ankle pain Sports Participation basketball 10/24/2015 None ankle pain Sports Participation baseball 10/24/2015 None ankle pain Sports Participation running 10/24/2015 None ankle pain Pertinent Findings stiffness 10/24/2015 None ankle pain Pertinent Findings pain with movement 10/24/2015 None well man exam (18-39 years) Control male condom 10/24/2015 None well man exam (18-39 years) Nutrition and Exercise normal weight 10/24/2015 None well man exam (18-39 years) Nutrition and Exercise balanced nutrition 10/24/2015 None well man exam (18-39 years) Nutrition and Exercise regular diet 10/24/2015 None well man exam (18-39 years) Nutrition and Exercise moderate exercise 10/24/2015 None skin lesion Onset of Symptom _ years ago 10/25/2014 None skin lesion Quality flat 10/25/2014 Denies pain. well man exam (18-39 years) Sexual Activity experiences sexual satisfaction 10/25/2014 None well man exam (18-39 years) Sexual Activity is monogamous 10/25/2014 None well man exam (18-39 years) Control regular use 10/25/2014 None well man exam (18-39 years) Lifestyle family supportive of relationship 10/25/2014 None well man exam (18-39 years) Lifestyle normal amount of stress 10/25/2014 None well man exam (18-39 years) Lifestyle normal sleep patterns 10/25/2014 None well man exam (18-39 years) Lifestyle regular seatbelt use 10/25/2014 None well man exam (18-39 years) Lifestyle satisfactory marriage/partner relationship 10/25/2014 None well man exam (18-39 years) Lifestyle satisfactory work experience 10/25/2014 None well man exam (18-39 years) Nutrition and Exercise balanced nutrition 10/25/2014 None well man exam (18-39 years) Nutrition and Exercise moderate exercise 10/25/2014 None well man exam (18-39 years) Reproductive System Development normal puberty 10/25/2014 None well man exam (18-39 years) Health Guidance cholesterol level and lipid panel 10/25/2014 None well man exam (18-39 years) Health Guidance regular exercise 10/25/2014 None well man exam (18-39 years) Health Guidance safety belt use 10/25/2014 None well man exam (18-39 years) Health Guidance tobacco, drugs and alcohol avoidance 10/25/2014 None ankle pain Location on the right 10/26/2012 None ankle pain Quality sharp pain 10/26/2012 alternating dull pain. states it is worse after sitting and getting up and walking agin ankle pain Pertinent Findings Denies catching 10/26/2012 None ankle pain Pertinent Findings Denies clicking 10/26/2012 None ankle pain Pertinent Findings Denies numbness 10/26/2012 None ankle pain Pertinent Findings Denies redness 10/26/2012 None ankle pain Pertinent Findings stiffness 10/26/2012 None ankle pain Pertinent Findings Denies swelling 10/26/2012 None ankle pain Onset of Symptom 2-3 weeks ago 10/26/2012 states he thinks he originally injured it while playing football with friends last fall ankle pain Severity mild 10/26/2012 None ankle pain Significant Medical Conditions degenerative joint disease 10/26/2012 None skin lesion Quality chronic 09/03/2012 None skin lesion Quality flat 09/03/2012 None skin lesion Quality non-tender 09/03/2012 None skin lesion Quality worsening 09/03/2012 None skin lesion Location left arm 09/03/2012 also on hands bilat. skin lesion Onset and Resolution ongoing 09/03/2012 None skin lesion Pertinent Findings Denies cough 09/03/2012 None skin lesion Pertinent Findings Denies ecchymotic 09/03/2012 None skin lesion Alleviating Factors medication 09/03/2012 had ointment for lesions that helps temporarily skin lesion Severity moderate 09/03/2012 None skin lesion Frequency of Episodes unchanged 09/03/2012 None skin lesion Triggers no known associated factors 09/03/2012 None headache Onset and Resolution sudden in onset 12/08/2011 None headache Onset of Symptom 3 days ago 12/08/2011 None sore throat Quality acute 12/08/2011 None sore throat Pertinent Findings cough 12/08/2011 None rash Location-Major on the hands 12/08/2011 on right hand rash Onset of Symptom 1 month ago 12/08/2011 recurrence of former rash, using itrakonazole with no results headache Location diffusely 12/08/2011 None headache Quality acute 12/08/2011 None headache Onset and Resolution ongoing 12/08/2011 None headache Limitation on Activities does not limit activities 12/08/2011 None headache Frequency of Episodes increasing 12/08/2011 None headache Significant Medical Conditions allergic rhinitis 12/08/2011 None headache Triggers no known associated factors 12/08/2011 None sore throat Location diffusely 12/08/2011 None sore throat Onset and Resolution ongoing 12/08/2011 None sore throat Limitation on Activities does not limit oral intake 12/08/2011 None sore throat Significant Medical Conditions allergic rhinitis 12/08/2011 None sore throat Triggers no known associated factors 12/08/2011 None flare up of rash Alleviating Factors no alleviating factors 07/29/2011 None flare up of rash Pertinent Findings history of similar rash 07/29/2011 None flare up of rash Pertinent Findings itching 07/29/2011 None flare up of rash Pertinent Findings tenderness 07/29/2011 None rash Location-Major on the arms 07/29/2011 None rash Quality expanding 07/29/2011 None rash Color red 2011 None flare up of rash Quality dry 07/29/2011 None flare up of rash Quality flaking 07/29/2011 None flare up of rash Onset and Resolution gradual in onset 07/29/2011 None flare up of rash Limitation on Activities does not limit activities 07/29/2011 None flare up of rash Severity mild 07/29/2011 None flare up of rash Severity worsening 07/29/2011 None flare up of rash Triggers no known triggers 07/29/2011 None flare up of rash Location-Extremities on the right hand 06/26/2011 None flare up of rash Quality dry 06/26/2011 None flare up of rash Quality flaking 06/26/2011 None flare up of rash Onset of Symptom 3 months ago 06/26/2011 None flare up of rash Color black 06/26/2011 None flare up of rash Color erythematous 06/26/2011 None flare up of rash Onset and Resolution gradual in onset 06/26/2011 None flare up of rash Limitation on Activities does not limit activities 06/26/2011 None flare up of rash Severity mild 06/26/2011 None flare up of rash Severity worsening 06/26/2011 None flare up of rash Prior Treatments partially responsive to treatment 06/26/2011 None flare up of rash Triggers no known triggers 06/26/2011 None flare up of rash Alleviating Factors no alleviating factors 06/26/2011 None flare up of rash Pertinent Findings history of similar rash 06/26/2011 None flare up of rash Pertinent Findings itching 06/26/2011 None flare up of rash Pertinent Findings tenderness 06/26/2011 None Advance Directives No Advance Directive data Encounters Encounter Performer Location Codes Date 73897 EST. PATIENT, LEVEL III Diagnosis: Gastro-esophageal reflux disease without esophagitis[ICD10: K21.9] Diagnosis: Abnormal weight loss[ICD10: R63.4] Diagnosis: Other malaise[ICD10: R53.81] Misty Azul MD, [facility] CPT-4 : 13742 06/11/2017 32057 EST. PATIENT, LEVEL IV Diagnosis: Abnormal weight loss[ICD10: R63.4] Diagnosis: Benign paroxysmal vertigo, bilateral[ICD10: H81.13] Diagnosis: 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[ICD10: M05.732] Diagnosis: Other malaise[ICD10: R53.81] Diagnosis: Other fatigue[ICD10: R53.83] Misty Azul MD, [facility] CPT-4 : 10681 05/28/2017 42604 EST. PATIENT, LEVEL III Diagnosis: 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[ICD10: M05.732] Misty Azul MD, [facility] CPT -4: 19468 04/08/2017 00444 EST. PATIENT, LEVEL IV Diagnosis: Acute bronchitis due to other specified organisms[ICD10: J20.8] Diagnosis: Other allergic rhinitis[ICD10: J30.89] [facility] CPT-4: 21663 09/22/2016 ([id number]) 16122 EST. PATIENT, LEVEL III Diagnosis: Benign paroxysmal vertigo, bilateral[ICD10: H81.13] Lee Ann Azul MD, [facility] CPT-4: 43083 09/11/2016 80235 EST. PATIENT, LEVEL III Diagnosis: Pain in right wrist[ICD10: M25.531] [facility] CPT-4: 48689 06/05/2016 ([id number]) PREV VISIT EST AGE 18-39 Diagnosis: Encounter for general adult medical examination without abnormal findings[ICD10: Z00.00] [facility] CPT-4: 63015 10/24/2015 ([id number]) PREV VISIT EST AGE 18-39 Diagnosis: PREVENTIVE PHYSICAL EXAM[ICD9: V70.0] Alma Azul MD, [facility] CPT-4: 98405 10/25/2014 ([id number]) 08974 EST. PATIENT, LEVEL III Diagnosis: ACHILLES TENDINITIS[ICD9: 726.71] Alma Azul MD, [facility] CPT-4: 09470 10/26/2012 ([id number]) 39194 EST. PATIENT, LEVEL III Diagnosis: Rash[ICD9: 782.1] Diagnosis: PRURITIC DISORDER[ICD9: 698.9] Lee Ann Azul MD, [facility] CPT-4: 12454 09/03/2012 ([id number]) 99190 EST. PATIENT, LEVEL III Diagnosis: ACUTE URI[ICD9: 465.9] Diagnosis: Rash[ICD9: 782.1] Lee Ann Azul MD, [facility] CPT-4: 82822 12/08/2011 ([id number]) 91970 EST. PATIENT, LEVEL III Diagnosis: PRURITIC DISORDER[ICD9: 698.9] Diagnosis: NONSPECIF SKIN ERUPT NEC[ICD9: 782.1] Alma Azul MD, [facility] CPT-4: 65569 07/29/2011 84736 EST. PATIENT, LEVEL IV Diagnosis: Rash[ICD9: 782.1] Diagnosis: Localized pruritus[ICD9: 698.9] Diagnosis: Elevated blood pressure[ICD9: 796.2] [facility] CPT-4: 16028 06/26/2011 Plan of Care Planned Activity Notes Codes Status Date Visit Plan: Malaise, weight loss - labs OK - pt is to follow with his RA specialist - will start on PPI, if symptoms do not improve will consider CT or referral to GI specialist Esophageal Reflux - the patient has been counseled against excessive intake of caffeine, spicy foods, peppermint , and cinnamon - all of which can exacerbate esophageal reflux. The patient is to take medications as prescribed and call the office if the symptoms are not improving. 06/11/2017 Appointment: Misty Zarate WPtel: [facility] (30 min) Complex 06/11/2017 Patient Education: Patient Medication Summary Completed 06/11/2017 Visit Plan: BPPV - Benign Paroxysmal Positional Vertigo - discussed diagnosis with the patient, offered the pt the appropriate additional information in hand-out. Pt instructed in home exercises to help alleviate and prevent future recurrent episodes of vertigo. Pt informed that if symptoms worsen, call the office for further instructions/medication interventions. RA - Pt is to follow with specialist at - pt is to notify clinic of any changes in current treatment plan or with any acute questions or concerns. Weight loss - will check labs and treat as indicated. 05/28/2017 Appointment: Misty Zarate WPtel: [phone] [id number] (15 min) Moderate 05/28/2017 Patient Education: Patient Medication Summary Completed 05/28/2017 Visit Plan: RA - acute flare - will send RX - pt has an appointment with a new instrument designer in May. Pt is to notify clinic if symptoms do not improve, if they worsen, or with any acute changes, questions, or concerns. 04/08/2017 Visit Plan: RA - acute flare - will send RX - pt has an appointment with a new instrument designer in May. Pt is to notify clinic if symptoms do not improve, if they worsen, or with any acute changes, questions, or concerns. 04/08/2017 Appointment: Misty Zarate WPtel: [facility] [place] (30 min) Complex 04/08/2017 Patient Education: Patient Medication Summary Completed 04/08/2017 Visit Plan: Bronchitis - acute case of bronchitis identified. Pt has been given antibiotics, steroid as appropriate, and pt has been instructed to call if symptoms are not improved, or if symptoms acutely worsen. Allergies - chronic - recommended pt to use allergy medication as prescribed. Pt has been counseled as to the appropriate use of the medication. Pt to call if allergy symptoms are not controlled with the medication. If using nasal spray, instructions as follows: Nasal spray- use twice daily, one spray per nostril twice daily, after 30 minutes, rinse out nose with saline spray.. Use opposite hand per nostril to spray in the nasal steroid allergy spray. 09/22/2016 Visit Plan: Bronchitis - acute case of bronchitis identified. Pt has been given antibiotics, steroid as appropriate, and pt has been instructed to call if symptoms are not improved, or if symptoms acutely worsen. Allergies - chronic - recommended pt to use allergy medication as prescribed. Pt has been counseled as to the appropriate use of the medication. Pt to call if allergy symptoms are not controlled with the medication. If using nasal spray, instructions as follows: Nasal spray- use twice daily, one spray per nostril twice daily, after 30 minutes, rinse out nose with saline spray.. Use opposite hand per nostril to spray in the nasal steroid allergy spray. 09/22/2016 App[facility]ment: [phone] (15 min) Moderate 09/22/2016 Patient Education: Patient Medication Summary Completed 09/22/2016 Visit Plan: BPPV - Benign Paroxysmal Positional Vertigo - discussed diagnosis with the patient, offered the pt the appropriate additional information in hand-out. Pt instructed in home exercises to help alleviate and prevent future recurrent episodes of vertigo. Pt informed that if symptoms worsen, call the office for further instructions/medication interventions. 09/11/2016 Appointment: [facility] Te[facility]ada [facility]el[id number] (30 min) Complex 09/11/2016 Patient Education: Patient Medication Summary Completed 09/11/2016 Patient Education: .Amazing charts Paroxysmal positional vertigo Completed 08/2016 Patient Education: Obesity Completed 09/11/2016 Visit Plan: Right wrist pain - The pt is to use prn antiinflammatories to manage acute pain. The patient is to call the office if the pain is worsening or does not improve. Intermittent and varying joint pain - ongoing for the past 5-6 years - will check labs 06/05/2016 Appointment: [facility]el[phone] (10 min) Simple 06/05/2016 Patient Education: Patient Medication Summary Completed 06/05/2016 Visit Plan: Well Adult - pt was counseled about diet, exercise, and encouraged to follow a heart healthy diet and increase activity level. The patient was instructed to RTC yearly for well adult exams and PRN for acute illnesses. The pt was also instructed to have yearly labs for check of cholesterol, thyroid, chem panel, CBC, and renal functioning. 10/24/2015 Appointment: Alma Azul WPtel: [facility] (15 min) Moderate 10/24/2015 Patient Education: Patient Medication Summary Completed 10/24/2015 Patient Education: Obesity Completed 10/24/2015 Visit Plan: Well Adult - pt was counseled about diet, exercise, and encouraged to follow a heart healthy diet and increase activity level. The patient was instructed to RTC yearly for well adult exams and PRN for acute illnesses. The pt was also instructed to have yearly labs for check of cholesterol, thyroid, chem panel, CBC, and renal functioning. 10/25/2014 Appointment: Alma Azul WPtel: [id number] (15 min) Moderate 10/25/2014 Patient Education: Patient Medication Summary Completed 10/25/2014 Visit Plan: Achilles tendonitis - uncontrolled symptoms- recommend pt to take antiinflammatory as directed for pain control. Use tylenol for break through pain symptoms. 10/26/2012 Appointment: Alma Azul WPtel: [id number] Follow up 10/26/2012 Patient Education: Patient Medication Summary Completed 10/26/2012 Patient Education: Achilles Tendon Injury Exercises Completed 10/26/2012 Patient Education: Achilles Tendon Injury Exercises: Illustration Completed Visit Plan: Rash-chronic--plan to treat with short course of prednisone and monitor symptoms. Patient is to call if rash does not resolve completely or if any worse. Finish anti-fungal medication as well. Patient verbalized understanding. 09/03/2012 Appointment: Lee Ann Tejada WPtel: [address] [place] [address] Other 09/03/2012 Patient Education: Patient Medication Summary Completed 09/03/2012 Visit Plan: Rash-culture done today in the office-plan to treat with short course of prednisone and monitor symptoms. Patient is to call if rash does not resolve completely or if any worse. Finish anti-fungal medication as well. Patient verbalized understanding. URI - Pt advised to increase fluids, vitamin C. Discussed natural and expected course of this diagnosis and need to alert me if symtpoms do not follow expected course, or if any worse. RX sent to patient's pharmacy.Rocephin and kenalog injection today in the office. 12/08/2011 Appointment: Lee Ann Tejada WPtel: [address] [place] [address] Other 12/08/2011 Patient Education: Patient Medication Summary Completed 12/08/2011 Visit Plan: Rash - Itching - uncertain eitiology - but with his response to the steroid and antifungal and the diffuse look of a folliculitis - I will treat Noah with a different antifungal and steroid and follow his progress. itraconazole 100 mg x 20 days prednisone taper 07/29/2011 Appointment: Alma Azul WPtel: [address] [place] [address] Other 07/29/2011 Patient Education: Patient Medication Summary Completed 07/29/2011 Visit Plan: Rash -uncertain eitiology - unable to get sample for reliable culture- will empirically treat with prednisone taper and diflucan x 7 days. Pt is to call if the rash does not improve or if it worsens. Elevated blood pressure - check blood pressure at home, cut back on salty foods , call in blood pressure in one week. 06/26/2011 Appointment: Alma Azul WPtel: [address] [place] [address] Other 06/26/2011 Patient Education: Patient Medication Summary Completed 06/26/2011 Instructions Comment . Rash -uncertain eitiology - unable to get sample for reliable culture- will empirically treat with prednisone taper and diflucan x 7 days. Pt is to call if the rash does not improve or if it worsens. Elevated blood pressure - check blood pressure at home, cut back on salty foods , call in blood pressure in one week. . RA - acute flare - will send RX - pt has an appointment with a new instrument designer in May. Pt is to notify clinic if symptoms do not improve, if they worsen, or with any acute changes, questions, or concerns. . RA - acute flare - will send RX - pt has an appointment with a new instrument designer in May. Pt is to notify clinic if symptoms do not improve, if they worsen, or with any acute changes, questions, or concerns. TREAT WITH PENNSAID 10 TO 15 DROPS FOUR TIMES DAILY X 2 WEEKS. . Achilles tendonitis - uncontrolled symptoms- recommend pt to take antiinflammatory as directed for pain control. Use tylenol for break through pain symptoms. . Rash - Itching - uncertain eitiology - but with his response to the steroid and antifungal and the diffuse look of a folliculitis - I will treat Noah with a different antifungal and steroid and follow his progress. itraconazole 100 mg x 20 days prednisone taper . Malaise, weight loss - labs OK - pt is to follow with his RA specialist - will start on PPI, if symptoms do not improve will consider CT or referral to GI specialist Esophageal Reflux - the patient has been counseled against excessive intake of caffeine, spicy foods, peppermint, and cinnamon - all of which can exacerbate esophageal reflux. The patient is to take medications as prescribed and call the office if the symptoms are not improving. . Rash-culture done today in the office-plan to treat with short course of prednisone and monitor symptoms. Patient is to call if rash does not resolve completely or if any worse. Finish anti-fungal medication as well. Patient verbalized understanding. URI - Pt advised to increase fluids, vitamin C. Discussed natural and expected course of this diagnosis and need to alert me if symtpoms do not follow expected course, or if any worse. RX sent to patient's pharmacy.Rocephin and kenalog injection today in the office. . BPPV - Benign Paroxysmal Positional Vertigo - discussed diagnosis with the patient, offered the pt the appropriate additional information in hand-out. Pt instructed in home exercises to help alleviate and prevent future recurrent episodes of vertigo. Pt informed that if symptoms worsen, call the office for further instructions/medication interventions. RA - Pt is to follow with specialist at - pt is to notify clinic of any changes in current treatment plan or with any acute questions or concerns. Weight loss - will check labs and treat as indicated. . Well Adult - pt was counseled about diet, exercise, and encouraged to follow a heart healthy diet and increase activity level. The patient was instructed to RTC yearly for well adult exams and PRN for acute illnesses. The pt was also instructed to have yearly labs for check of cholesterol, thyroid, chem panel, CBC, and renal functioning. . BPPV - Benign Paroxysmal Positional Vertigo - discussed diagnosis with the patient, offered the pt the appropriate additional information in hand-out. Pt instructed in home exercises to help alleviate and prevent future recurrent episodes of vertigo. Pt informed that if symptoms worsen, call the office for further instructions/medication interventions. . Right wrist pain - The pt is to use prn antiinflammatories to manage acute pain. The patient is to call the office if the pain is worsening or does not improve. Intermittent and varying joint pain - ongoing for the past 5-6 years - will check labs steroid shot today prednisone 40mg daily x 2 more days, then 20mg daily x 2 days, then stop - let me know if your symptoms are not improving Continue doxycycline for now - will check chest x-ray - if needed will change antibiotics. [facility] allergy medicine - I will send as a prescription, if it is cheaper over the counter get the over the counter (they are the same medicine and dose) Let me know if you are not getting better.. Bronchitis - acute case of bronchitis identified. Pt has been given antibiotics, steroid as appropriate, and pt has been instructed to call if symptoms are not improved, or if symptoms acutely worsen. Allergies - chronic - recommended pt to use allergy medication as prescribed. Pt has been counseled as to the appropriate use of the medication. Pt to call if allergy symptoms are not controlled with the medication. If using nasal spray, instructions as follows: Nasal spray- use twice daily, one spray per nostril twice daily, after 30 minutes, rinse out nose with saline spray.. Use opposite hand per nostril to spray in the nasal steroid allergy spray. steroid shot today prednisone 40mg daily x 2 more days, then 20mg daily x 2 days, then stop - let me know if your symptoms are not improving Continue doxycycline for now - will check chest x-ray - if needed will change antibiotics. [facility] allergy medicine - I will send as a prescription, if it is cheaper over the counter get the over the counter (they are the same medicine and dose) Let me know if you are not getting better.. Bronchitis - acute case of bronchitis identified. Pt has been given antibiotics, steroid as appropriate, and pt has been instructed to call if symptoms are not improved, or if symptoms acutely worsen. Allergies - chronic - recommended pt to use allergy medication as prescribed. Pt has been counseled as to the appropriate use of the medication. Pt to call if allergy symptoms are not controlled with the medication. If using nasal spray, instructions as follows: Nasal spray- use twice daily, one spray per nostril twice daily, after 30 minutes, rinse out nose with saline spray.. Use opposite hand per nostril to spray in the nasal steroid allergy spray. . Rash-chronic--plan to treat with short course of prednisone and monitor symptoms. Patient is to call if rash does not resolve completely or if any worse. Finish anti-fungal medication as well. Patient verbalized understanding. retinol or cortisone on the dark skin lesion on back - the site on the back of your left calf is called a dermatofibroma is and benign. . Well Adult - pt was counseled about diet, exercise, and encouraged to follow a heart healthy diet and increase activity level. The patient was instructed to RTC yearly for well adult exams and PRN for acute illnesses. The pt was also instructed to have yearly labs for check of cholesterol, thyroid, chem panel, CBC, and renal functioning.
--- OUTSIDE RECORDS SUMMARY | 2017-07-13 16:05 | XMS REPORT | CCD ---
Author Author Alma Azul Organization Alma Azul MD, [facility] Address [address] [place] [address] Phone Care Team Providers Care Senior Architect/Design Manager Name Role Phone PP Unavailable CCM Unavailable Summary Purpose Interface Exchange Insurance Providers Payer name Policy type / Coverage type Covered republican ID Effective Begin Date Effective End Date [facility] [id number] 2016 Unknown Family history Mother Diagnosis Age [...] Unknown House 06/26/2011 Employment Unknown Currently employed [employer] 06/26/2011 Allergies, Adverse Reactions, Alerts Allergies, Adverse [...] Start Date Stop Date Status Fill Instructions Prilosec OTC 20 mg tablet,delayed release RxNorm: 026629 1 Tablet(s) PO daily 06/11/2017 No Stop Date Active meclizine 25 mg tablet RxNorm: 010399 1 Tablet(s) PO TID as needed 05/28/2017 06/06/2017 Inactive Zofran ODT 4 mg disintegrating tablet RxNorm: 059812 1 Tablet(s) PO TID as needed 05/28/2017 06/06/2017 Inactive clobetasol 0.05 % topical cream RxNorm: 869517 APPLY TO AFFECTED AREAS TOP as needed FOR ECZEMA 05/06/2017 No Stop Date Active Voltaren 1 % topical gel RxNorm: 172985 1 Application TOP QID as needed 04/08/2017 No Stop Date Active prednisone 10 mg tablet RxNorm: 783139 Tablet(s) PO UD 201605/27/2017 Inactive 6,5,4,3,2,1 Kenalog 40 mg/mL suspension for injection RxNorm: 4683758 Milliliter(s) Inj 04/08/2017 04/08/2017 Inactive Zyrtec 10 mg tablet RxNorm: 8226420 1 Tablet(s) PO daily 09/2210/21/2016 Inactive Kenalog 40 mg/mL suspension for injection RxNorm: 1926097 1 Milliliter(s) Inj 09/22/2016 09/22/2016 Inactive prednisone 20 mg tablet RxNorm: 099086 1 Tablet(s) PO daily 05/27/2017 Inactive clobetasol 0.05 % topical cream RxNorm: 149407 APPLY TO AFFECTED AREAS TOP as needed FOR ECZEMA 06/21/2015 05/05/2017 Inactive prednisone 10 mg tablets in a dose pack RxNorm: 672722 Tablet(s) PO 09/03/2012 09/08/2012 Inactive Diflucan 150 mg tablet RxNorm: 083098 1 Tablet(s) PO daily 09/12/2012 Inactive nystatin-triamcinolone 100,000 unit/gram-0.1 % Ointment RxNorm: 3091078 1 Application TOP BID 12/15/2011 12/14/2011 Inactive nystatin-triamcinolone 100,000 unit/gram-0.1 % Ointment RxNorm: 2863926 1 Application TOP BID 12/15/2011 12/28/2011 Inactive Bactrim DS 800 mg-160 mg tablet RxNorm: 471655 1 Tablet(s) PO BID 12/08/2011 12/17/2011 Inactive prednisone 10 mg tablets in a dose pack RxNorm: 019717 Tablet(s) PO UD 6-5-4-3-2- 1 12/08/2011 12/13/2011 Inactive itraconazole 100 mg Cap RxNorm: 702863 1 Capsule(s) PO 201110/25/2012 Inactive Kenalog 40 mg/mL Susp for Injection RxNorm: 7064667 Milliliter(s) Inj 06/26/2011 06/26/2011 Inactive Kenalog 40 mg/mL Susp for Injection RxNorm: 3203119 2 Milliliter(s) Inj 06/26/2011 06/26/2011 Inactive meloxicam 15 mg tablet RxNorm: 239934 1 Tablet(s) PO daily No Start Date Active itraconazole 100 mg Cap RxNorm: 473512 1 Capsule(s) PO No Start Date 10/21/2011 Inactive clobetasol 0.05 % topical cream RxNorm: 198309 APPLY TO AFFECTED AREAS TOP as needed FOR ECZEMA No Start Date 2015 Inactive Medication Administered Medication Codes Instructions Start Date Status Kenalog 40 mg/mL suspension for injection RxNorm: 7397614 Milliliter 04/08/2017 No longer Active Kenalog 40 mg/mL suspension for injection RxNorm: 2576279 1Milliliter 09/22/2016 No longer Active Kenalog 40 mg/mL Susp for Injection RxNorm: 9300311 2Milliliter 06/26/2011 No longer Active Immunizations No [...] Code Item Item Code Result Date Zoila 330561 OZILA (ZACH) SCREEN DETECTED 06/13/2016 Zoila 477524 ZOILA (IFA) TITER 1:160 06/13/2016 Zoila 842946 ZOILA PATTERN SPECKLED 06/13/2016 Zoila 821411 06/13/2016 Cbc With Differential Ord2 WBC 3.84 K/ul 06/05/2016 Cbc With Differential Ord2 RBC 5.27 M/ul 06/05/2016 Cbc With Differential Ord2 HGB 15.6 g/dl 06/05/2016 Cbc With Differential Ord2 Neut% 56.7 % 06/05/2016 Cbc With Differential Ord2 HCT 45.1 % 06/05/2016 Cbc With Differential Ord2 Lymph% 31.0 % 06/05/2016 Cbc With Differential Ord2 MCV 85.6 fl 06/05/2016 Cbc With Differential Ord2 MCH 29.6 pg 06/05/2016 Cbc With Differential Ord2 [place]% 10.4 % 06/05/2016 Cbc With Differential Ord2 Eos% 1.6 % 06/05/2016 Cbc With Differential Ord2 MCHC 34.6 pg 06/05/2016 Cbc With Differential Ord2 PLT 218 K/ul 06/05/2016 Cbc With Differential Ord2 Baso% 0.3 % 06/05/2016 Cbc With Differential Ord2 RDW 14.9 % 06/05/2016 Cbc With Differential Ord2 Neut ABS# 2.18 K/ul 06/05/2016 Cbc With Differential Ord2 Lymph ABS# 1.19 K/ul 06/05/2016 Cbc With Differential Ord2 [place] ABS# 0.4 K/ul 06/05/2016 Cbc With Differential Ord2 Eos ABS# 0.1 K/ul 06/05/2016 Cbc With Differential Ord2 Baso ABS# 0.0 K/ul 06/05/2016 C-Reactive Protein Qnt Crqnt CRP 0.7 mg/dl 06/05/2016 Sed Rate Ord21 ESR 4 mm/hr 06/05/2016 Ra Factor Fhu081 RA FACTOR 21.4 IU/ml 06/05/2016 Uric Acid Ord77 Uric A 6.2 mg/dL 06/05/2016 Lipid Ord30 CHOL 193 mg/dL 09/26/2015 Lipid Ord30 HDL 38.0 mg/dl 09/26/2015 Lipid Ord30 TRIG 187 mg/dL 09/26/2015 Lipid Ord30 LDL 118 mg/dL 09/26/2015 Lipid Ord30 C/HDL 5.1 Ratio 09/26/2015 Tsh Ord6 hTSH II 1.78 uIU/mL 09/26/2015 Comp Metabolic Obr853 NA 135 mEq/L 09/26/2015 Comp Metabolic Nfa801 K 4.3 mEq/L 09/26/2015 Comp Metabolic Vvs544 CL 102 mEq/L 09/26/2015 Comp Metabolic Twx128 CO2 30.0 mEq/L 09/26/2015 Comp Metabolic Jtj740 ANION GAP 7 09/26/2015 Comp Metabolic Vny700 GLUCOSE 105 mg/dL 09/26/2015 Comp Metabolic Bqa480 Creat 0.9 mg/dL 09/26/2015 Comp Metabolic Noi208 eGFR 102 ml/min/1.73m2 09/26/2015 Comp Metabolic Wfs936 BUN 13 mg/dL 09/26/2015 Comp Metabolic Wla267 B/C Ratio 14.4 Ratio 09/26/2015 Comp Metabolic Spc115 CALCIUM 9.1 mg/dL 09/26/2015 Comp Metabolic Jod379 ALK PHOS 53 U/L 09/26/2015 Comp Metabolic Vbf114 AST(SGOT) 18 U/L 09/26/2015 Comp Metabolic Zok249 ALT(SGPT) 27 U/L 09/26/2015 Comp Metabolic Flx303 BILI T 0.5 mg/dL 09/26/2015 Comp Metabolic Xpd923 ALBUMIN 4.4 g/dL 09/26/2015 Comp Metabolic Uys476 TPRO 6.9 g/dL 09/26/2015 Comp Metabolic Wii296 GLOB 2.5 g/dL 09/26/2015 Comp Metabolic Yng891 A/G Ratio 1.7 Ratio 09/26/2015 Comp Metabolic Ojr887 Osmo 271 mOsmo 09/26/2015 Cbc With Differential [...] 29.0 pg 09/26/2015 Cbc With Differential Ord2 [place]% 11.4 % 09/26/2015 Cbc With Differential Ord2 MCHC 33.6 pg 09/26/2015 Cbc With Differential Ord2 Eos% 2.9 % 09/26/2015 Cbc With Differential Ord2 Baso% 0.2 % 09/26/2015 Cbc With Differential Ord2 PLT 215 K/ul 09/26/2015 Cbc With Differential Ord2 RDW 15.0 % 09/26/2015 Cbc With Differential Ord2 Neut ABS# 2.19 K/ul 09/26/2015 Cbc With Differential Ord2 Lymph ABS# 1.64 K/ul 09/26/2015 Cbc With Differential Ord2 [place] ABS# 0.5 K/ul 09/26/2015 Cbc With Differential [...] normal 06/11/2017 None Full Exam - General 1995 Ears/Nose/Throat lips/teeth/gingiva Overall: benign lips 06/11/2017 None Full Exam - General 1995 Ears/Nose/Throat [...] exam 10/26/2012 None Full Exam - General 1995 Musculoskeletal lower extremity Palpation - ankle: a normal exam 10/26/2012 None Full Exam - General 1995 Musculoskeletal lower extremity Palpation - ankle: tender @ achilles tendon 10/26/2012 None Full Exam - General 1994 Musculoskeletal lower extremity Palpation - ankle: tender @ plantar fascia insertion 10/26/2012 None Full Exam - General 1995 Ears/Nose/Throat oral cavity/pharynx/larynx Overall: oropharyngeal mucosa clear 10/26/2012 None Full Exam - General 1995 Ears/Nose/Throat oral cavity/pharynx/larynx Overall: no masses 10/26/2012 [...] murmurs 09/03/2012 None Full Exam - General 1994 Integument inspection of skin Dermatitis: erythema 09/03/2012 None Full Exam - General 1994 Integument inspection of skin Dermatitis: dryness/ flaking 09/03/2012 None Full Exam - General 1994 Integument inspection of skin Dermatitis: scaling 09/03/2012 None Full Exam - General 1994 Integument inspection of skin Dermatitis: thickened 09/03/2012 None Full Exam - General 1994 Integument inspection of skin Dermatitis: lichenification 09/03/2012 [...] developed 07/29/2011 None Full Exam - General 1994 Constitutional general appearance Overall: in no acute distress 07/29/2011 None Full Exam - General 1994 Constitutional general appearance Overall: well nourished 07/29/2011 None Full Exam - General 1994 Respiratory [...] murmurs 07/29/2011 None Full Exam - General 1995 Integument inspection of skin Dermatitis: erythema 07/29/2011 [...] CPT-4: J1885 12/08/2011 THER/PROPH/DIAG INJ SC/IM CPT-4: 68111 12/08/2011 TRIAMCINOLONE ACET INJ NOS CPT-4: J3301 06/26/2011 THER/PROPH/DIAG INJ SC/IM CPT-4: 58402 06/26/2011 Vital Signs Date Vital 06/11/2017 Blood Pressure 1: 122/80 Code : 8480-6 BMI: 26.6 Code : 21367-7 Heart Rate 1 : 76 bpm Height: 6'2" SpO2: 96% Weight: 210 lbs 05/28/2017 Blood Pressure 1: 130/70 Code : 8480-6 BMI: 26.9 Code : 93986-7 Heart Rate 1 : 83 bpm Height: 6'2" SpO2: 98% Weight: 212 lbs 04/08/2017 Blood Pressure 1: 122/74 Code : 8480-6 BMI: 28.1 Code : 11965-0 Heart Rate 1 : 88 bpm Height: 6'2" SpO2: 99% Weight: 222 lbs 09/22/2016 Blood Pressure 1: 128/80 Code : 8480-6 BMI: 29.4 Code : 89914-9 Heart Rate 1 : 92 bpm Height: 6'2" SpO2: 98% Temperature: 36.6 (C) / 97.8 (F) Weight: 232 lbs 09/11/2016 Blood Pressure 1: 124/78 Code : 8480-6 BMI: 29.4 Code : 65759-2 Heart Rate 1 : 78 bpm Height: 6'2" SpO2: 96% Weight: 232 lbs 06/05/2016 Blood Pressure 1: 128/82 Code : 8480-6 BMI: 31.0 Code : 89348-8 Heart Rate 1 : 80 bpm Height: 6'2" SpO2: 98% Weight: 245 lbs 10/24/2015 Blood Pressure 1: 126/74 Code : 8480-6 BMI: 29.9 Code : 00701-7 Heart Rate 1 : 71 bpm Height: 6'2" SpO2: 98% Weight: 236 lbs 10/25/2014 Blood Pressure 1: 102/74 Code : 8480-6 BMI: 30.4 Code : 91420-4 Heart Rate 1 : 76 bpm Height: 6'2" Weight: 240 lbs 10/26/2012 Blood Pressure 1: 122/82 Code : 8480-6 BMI: 32.8 Code : 00970-1 Heart Rate 1 : 72 bpm Height: 6' Respiratory Rate: 16 bpm Weight: 245 lbs 09/03/2012 Blood Pressure 1: 126/74 Code : 8480-6 BMI: 31.6 Code : 93246-9 Heart Rate 1 : 80 bpm Height: 6'2" Weight: 246 lbs 12/08/2011 Blood Pressure 1: 126/74 Code : 8480-6 Heart Rate 1: 72 bpm Respiratory Rate : 16 bpm Temperature: 36.8 (C) / 98.3 (F) Weight: 240 lbs 07/29/2011 Blood Pressure 1: 130/80 Code : 8480-6 BMI: 30.1 Code : 86902-7 Heart Rate 1 : 62 bpm Height: 6'2" Weight: 237 lbs 8 oz 06/26/2011 Blood Pressure 1: 140/72 Code : 8480-6 BMI: 32.1 Code : 09495-0 Heart Rate 1 : 68 bpm Height: [...] data Encounters Encounter Performer Location Codes Date EST. PATIENT, LEVEL III Diagnosis: Gastro-esophageal reflux disease without esophagitis[ICD10: K21.9] Diagnosis: Abnormal weight loss[ICD10: R63.4] Diagnosis: Other malaise[ICD10: R53.81] Misty Azul MD, [facility] CPT-4 : 46603 06/11/2017 09564 EST. 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 PATIENT, LEVEL III Diagnosis: 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[ICD10: M05.732] Misty Azul MD, [facility] CPT -4: 19342 04/08/2017 89429 EST. PATIENT, LEVEL IV Diagnosis: Acute bronchitis due to other specified organisms[ICD10: J20.8] Diagnosis: Other allergic rhinitis[ICD10: J30.89] Misty Azul MD, [facility] CPT-4: 96232 09/22/2016 ([id number]) 60470 EST. PATIENT, LEVEL III Diagnosis: Benign paroxysmal vertigo, bilateral[ICD10: H81.13] Lee Ann Azul MD, [facility] CPT-4: 12479 09/11/2016 49635 EST. PATIENT, LEVEL III Diagnosis: Pain in right wrist[ICD10: M25.531] Misty Azul MD, [facility] CPT-4: 14025 06/05/2016 ([id number]) PREV VISIT EST AGE 18-39 Diagnosis: Encounter for general adult medical examination without abnormal findings[ICD10: Z00.00] Alma Azul MD, [facility] CPT-4: 91159 10/24/2015 ([id number]) PREV VISIT EST AGE 18-39 Diagnosis: PREVENTIVE PHYSICAL EXAM[ICD9: V70.0] Alma Azul MD, [facility] CPT-4: 40331 10/25/2014 ([id number]) 68066 EST. PATIENT, LEVEL III Diagnosis: ACHILLES TENDINITIS[ICD9: 726.71] Alma Azul MD, [facility] CPT-4: 37598 10/26/2012 ([id number]) 73876 EST. PATIENT, LEVEL III Diagnosis: Rash[ICD9: 782.1] Diagnosis: PRURITIC DISORDER[ICD9: 698.9] Lee Ann Azul MD, [facility] CPT-4: 28178 09/03/2012 ([id number]) 79405 EST. PATIENT, LEVEL III Diagnosis: ACUTE URI[ICD9: 465.9] Diagnosis: Rash[ICD9: 782.1] Lee Ann Azul MD, [facility] CPT-4: 45045 12/08/2011 ([id number]) 48443 EST. PATIENT, LEVEL III Diagnosis: PRURITIC DISORDER[ICD9: 698.9] Diagnosis: NONSPECIF SKIN ERUPT NEC[ICD9: 782.1] Alma Azul MD, [facility] CPT-4: 02050 07/29/2011 13786 EST. PATIENT, LEVEL IV Diagnosis: Rash[ICD9: 782.1] Diagnosis: Localized pruritus[ICD9: 698.9] Diagnosis: Elevated blood pressure[ICD9: 796.2] Alma Azul MD, [facility] CPT-4: 71934 06/26/2011 Plan of Care Planned Activity Notes [...] not improving. 06/11/2017 Appointment: Misty Zarate WPtel: [phone] [facility] (30 min) Complex 06/11/2017 Patient Education: Patient [...] indicated. 05/28/2017 Appointment: Misty Zarate WPtel: [phone] [facility] (15 min) Moderate 05/28/2017 Patient Education: Patient Medication Summary Completed 05/28/2017 Visit Plan: RA - acute flare - will send RX - pt has an appointment with a new cylinder press feeder in May. Pt is to notify clinic if symptoms do not improve, if they worsen, or with any acute changes, questions, or concerns. 04/08/2017 Visit Plan: RA - acute flare - will send RX - pt has an appointment with a new cylinder press feeder in May. Pt is to notify clinic if symptoms do not improve, if they worsen, or with any acute changes, questions, or concerns. 04/08/2017 Appointment: Misty Zarate WPtel: [facility] (30 min) Complex 04/08/2017 Patient Education: Patient [...] allergy spray. 09/22/2016 Appointment: Misty Zarate WPtel: [facility] (15 min) Moderate 09/22/2016 Patient Education: Patient [...] interventions. 09/11/2016 Appointment: Lee Ann Tejada WPtel: [facility]3 [phone] (30 min) Complex 09/11/2016 Patient Education: Patient [...] check labs 06/05/2016 Appointment: Misty Zarate WPtel: [phone] [facility] (10 min) Simple 06/05/2016 Patient Education: Patient [...] renal functioning. 10/24/2015 Appointment: Alma Azul WPtel: [facility]4 [facility] (15 min) Moderate 10/24/2015 Patient Education: Patient [...] renal functioning. 10/25/2014 Appointment: Alma Azul WPtel: [facility] (15 min) Moderate 10/25/2014 Patient Education: Patient Medication Summary Completed 10/25/2014 Visit Plan: Achilles tendonitis - uncontrolled symptoms- recommend pt to take antiinflammatory as directed for pain control. Use tylenol for break through pain symptoms. 10/26/2012 Appointment: Alma Azul WPtel: [facility] Follow up 10/26/2012 Patient Education: Patient Medication [...] understanding. 09/03/2012 Appointment: Lee Ann Tejada WPtel: [facility]0 [phone] [place] Other 09/03/2012 Patient Education: Patient Medication Summary [...] office. 12/08/2011 Appointment: Lee Ann Tejada WPtel: [phone] [phone] [place] [address] Other 12/08/2011 Patient Education: Patient Medication Summary Completed 12/08/2011 Visit Plan: Rash - Itching - uncertain eitiology - but with his response to the steroid and antifungal and the diffuse look of a folliculitis - I will treat Noah with a different antifungal and steroid and follow his progress. itraconazole 100 mg x 20 days prednisone taper 07/29/2011 Appointment: Alma Azul WPtel: [phone] [facility] Other 07/29/2011 Patient Education: Patient Medication Summary [...] one week. 06/26/2011 Appointment: Alma Azul WPtel: [phone] [facility] Other 06/26/2011 Patient Education: Patient Medication Summary [...] pt has an appointment with a new cylinder press feeder in May. Pt is to notify clinic if symptoms do not improve, if they worsen, or with any acute changes, questions, or concerns. . RA - acute flare - will send RX - pt has an appointment with a new cylinder press feeder in May. Pt is to notify clinic [...] x-ray - if needed will change antibiotics. [facility] allergy medicine - I will send as [...] x-ray - if needed will change antibiotics. [facility] allergy medicine - I will send as [...]
--- OUTSIDE RECORDS SUMMARY | 2017-07-13 16:06 | XMS REPORT | CCD ---
Author Author Alma Azul MD, [facility] Address [address] [place] [address] Phone Care Team Providers Care Cloud Automation Tester Name Role Phone PP Unavailable CCM Unavailable Summary Purpose Interface Exchange Insurance Providers Payer name Policy type / Coverage type Covered democrat ID Effective Begin Date Effective End Date [facility] [id number] 2016 Unknown Family history Mother Diagnosis Age [...] Unknown House 06/26/2011 Employment Unknown Currently employed [employer] 06/26/2011 Allergies, Adverse Reactions, Alerts Allergies, Adverse Reactions, Alerts data not found Past Medical History Illness Codes Condition Status Onset Date Resolved Date Abnormal weight loss ICD-9: 783.21 ICD-10: R63.4 Active 05/28/2017 Unknown Benign paroxysmal vertigo, bilateral ICD-9: 386.11 ICD-10: H81.13 Active 09/11/2016 Unknown Other fatigue ICD-9: 780.79 ICD-10: R53.83 Active 05/28/2017 Unknown Other malaise ICD-9: 780.79 ICD-10: R53.81 Active 05/28/2017 Unknown Rheumatoid arthritis with rheumatoid [...] loss ICD-9: 783.21 ICD-10: R63.4 05/28/2017 Active Benign paroxysmal vertigo, bilateral ICD-9: 386.11 ICD-10: H81.13 09/11/2016 Active Other fatigue ICD-9: 780.79 ICD-10: R53.83 05/28/2017 Active Other malaise ICD-9: 780.79 ICD-10: R53.81 05/28/2017 Active Rheumatoid arthritis with rheumatoid factor [...] Start Date Stop Date Status Fill Instructions meclizine 25 mg tablet RxNorm: 172456 1 Tablet(s) PO TID as needed 05/28/2017 06/06/2017 Active Zofran ODT 4 mg disintegrating tablet RxNorm: 287836 1 Tablet(s) PO TID as needed 05/28/2017 06/06/2017 Active clobetasol 0.05 % topical cream RxNorm: 613991 APPLY TO AFFECTED AREAS TOP as needed FOR ECZEMA 05/06/2017 No Stop Date Active Voltaren 1 % topical gel RxNorm: 777159 1 Application TOP QID as needed 04/08/2017 No Stop Date Active prednisone 10 mg tablet RxNorm: 773777 Tablet(s) PO UD 201605/27/2017 Inactive 6,5,4,3,2,1 Kenalog 40 mg/mL suspension for injection RxNorm: 5721988 Milliliter(s) Inj 04/08/2017 04/08/2017 Inactive Zyrtec 10 mg tablet RxNorm: 0172999 1 Tablet(s) PO daily 09/2210/21/2016 Inactive Kenalog 40 mg/mL suspension for injection RxNorm: 1491856 1 Milliliter(s) Inj 09/22/2016 09/22/2016 Inactive prednisone 20 mg tablet RxNorm: 514358 1 Tablet(s) PO daily 05/27/2017 Inactive clobetasol 0.05 % topical cream RxNorm: 428585 APPLY TO AFFECTED AREAS TOP as needed FOR ECZEMA 06/21/2015 05/05/2017 Inactive prednisone 10 mg tablets in a dose pack RxNorm: 979389 Tablet(s) PO 09/03/2012 09/08/2012 Inactive Diflucan 150 mg tablet RxNorm: 746244 1 Tablet(s) PO daily 09/12/2012 Inactive nystatin-triamcinolone 100,000 unit/gram-0.1 % Ointment RxNorm: 3422971 1 Application TOP BID 12/15/2011 12/14/2011 Inactive nystatin-triamcinolone 100,000 unit/gram-0.1 % Ointment RxNorm: 3366771 1 Application TOP BID 12/15/2011 12/28/2011 Inactive Bactrim DS 800 mg-160 mg tablet RxNorm: 350337 1 Tablet(s) PO BID 12/08/2011 12/17/2011 Inactive prednisone 10 mg tablets in a dose pack RxNorm: 880973 Tablet(s) PO UD 6-5-4-3-2- 1 12/08/2011 12/13/2011 Inactive itraconazole 100 mg Cap RxNorm: 428545 1 Capsule(s) PO 201110/25/2012 Inactive Kenalog 40 mg/mL Susp for Injection RxNorm: 3356516 Milliliter(s) Inj 06/26/2011 06/26/2011 Inactive Kenalog 40 mg/mL Susp for Injection RxNorm: 0764409 2 Milliliter(s) Inj 06/26/2011 06/26/2011 Inactive meloxicam 15 mg tablet RxNorm: 261840 1 Tablet(s) PO daily No Start Date Active itraconazole 100 mg Cap RxNorm: 264866 1 Capsule(s) PO No Start Date 10/21/2011 Inactive clobetasol 0.05 % topical cream RxNorm: 475088 APPLY TO AFFECTED AREAS TOP as needed FOR ECZEMA No Start Date 2015 Inactive Medication Administered Medication Codes Instructions Start Date Status Kenalog 40 mg/mL suspension for injection RxNorm: 9093852 Milliliter 04/08/2017 No longer Active Kenalog 40 mg/mL suspension for injection RxNorm: 4156307 1Milliliter 09/22/2016 No longer Active Kenalog 40 mg/mL Susp for Injection RxNorm: 1119352 2Milliliter 06/26/2011 No longer Active Immunizations No Immunization data Assessments Condition Codes Effective Dates 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 ICD-10: M05.732 ICD-9: 714.0 05/28/2017 Other fatigue ICD-10: R53.83 ICD-9: 780.79 05/28/2017 Abnormal weight loss ICD-10: R63.4 ICD-9: 783.21 05/28/2017 Other malaise ICD-10: R53.81 ICD-9: 780.79 05/28/2017 Benign paroxysmal vertigo, bilateral [...] Visit Reason For Visit Effective Dates Notes dizziness 05/28/2017 wrist pain 04/08/2017 cough 09/22/2016 [...] Code Item Item Code Result Date Zoila [id number] ZOILA (ZACH) SCREEN DETECTED 06/13/2016 Zoila [id number] ZOILA (IFA) TITER 1:160 06/13/2016 Zoila [id number] ZOILA PATTERN SPECKLED 06/13/2016 Zoila [id number] 06/13/2016 Cbc With Differential Ord2 WBC 3.84 K/ul 06/05/2016 Cbc With Differential Ord2 RBC 5.27 M/ul 06/05/2016 Cbc With Differential Ord2 HGB 15.6 g/dl 06/05/2016 Cbc With Differential Ord2 Neut% 56.7 % 06/05/2016 Cbc With Differential Ord2 HCT 45.1 % 06/05/2016 Cbc With Differential Ord2 MCV 85.6 fl 06/05/2016 Cbc With Differential Ord2 Lymph% 31.0 % 06/05/2016 Cbc With Differential Ord2 MCH 29.6 pg 06/05/2016 Cbc With Differential Ord2 Dane% 10.4 % 06/05/2016 Cbc With Differential Ord2 Eos% 1.6 % 06/05/2016 Cbc With Differential Ord2 MCHC 34.6 pg 06/05/2016 Cbc With Differential Ord2 PLT 218 K/ul 06/05/2016 Cbc With Differential Ord2 Baso% 0.3 % 06/05/2016 Cbc With Differential Ord2 Neut ABS# 2.18 K/ul 06/05/2016 Cbc With Differential Ord2 RDW 14.9 % 06/05/2016 Cbc With Differential Ord2 Lymph ABS# 1.19 K/ul 06/05/2016 Cbc With Differential Ord2 Dane ABS# 0.4 K/ul 06/05/2016 Cbc With Differential Ord2 Eos ABS# 0.1 K/ul 06/05/2016 Cbc With Differential Ord2 Baso ABS# 0.0 K/ul 06/05/2016 C-Reactive Protein Qnt Crqnt CRP 0.7 mg/dl 06/05/2016 Sed Rate Ord21 ESR 4 mm/hr 06/05/2016 Ra Factor Ile095 RA FACTOR 21.4 IU/ml 06/05/2016 Uric Acid Ord77 Uric A 6.2 mg/dL 06/05/2016 Lipid Ord30 CHOL 193 mg/dL 09/26/2015 Lipid Ord30 HDL 38.0 mg/dl 09/26/2015 Lipid Ord30 TRIG 187 mg/dL 09/26/2015 Lipid Ord30 LDL 118 mg/dL 09/26/2015 Lipid Ord30 C/HDL 5.1 Ratio 09/26/2015 Tsh Ord6 hTSH II 1.78 uIU/mL 09/26/2015 Comp Metabolic Utb043 NA 135 mEq/L 09/26/2015 Comp Metabolic Dwm498 K 4.3 mEq/L 09/26/2015 Comp Metabolic Kca940 CL 102 mEq/L 09/26/2015 Comp Metabolic Znz823 CO2 30.0 mEq/L 09/26/2015 Comp Metabolic Bip048 ANION GAP 7 09/26/2015 Comp Metabolic Rnj880 GLUCOSE 105 mg/dL 09/26/2015 Comp Metabolic Fqz196 Creat 0.9 mg/dL 09/26/2015 Comp Metabolic Qud957 eGFR 102 ml/min/1.73m2 09/26/2015 Comp Metabolic Hpc883 BUN 13 mg/dL 09/26/2015 Comp Metabolic Udm850 B/C Ratio 14.4 Ratio 09/26/2015 Comp Metabolic Meq328 CALCIUM 9.1 mg/dL 09/26/2015 Comp Metabolic Opu681 ALK PHOS 53 U/L 09/26/2015 Comp Metabolic Ozr869 AST(SGOT) 18 U/L 09/26/2015 Comp Metabolic Vma364 ALT(SGPT) 27 U/L 09/26/2015 Comp Metabolic Hoz830 BILI T 0.5 mg/dL 09/26/2015 Comp Metabolic Fpo297 ALBUMIN 4.4 g/dL 09/26/2015 Comp Metabolic Wff765 TPRO 6.9 g/dL 09/26/2015 Comp Metabolic Wfc871 GLOB 2.5 g/dL 09/26/2015 Comp Metabolic Ciu567 A/G Ratio 1.7 Ratio 09/26/2015 Comp Metabolic Fgl612 Osmo 271 mOsmo 09/26/2015 Cbc With Differential [...] 29.0 pg 09/26/2015 Cbc With Differential Ord2 Dane% 11.4 % 09/26/2015 Cbc With Differential Ord2 Eos% 2.9 % 09/26/2015 Cbc With Differential Ord2 MCHC 33.6 pg 09/26/2015 Cbc With Differential Ord2 Baso% 0.2 % 09/26/2015 Cbc With Differential Ord2 PLT 215 K/ul 09/26/2015 Cbc With Differential Ord2 RDW 15.0 % 09/26/2015 Cbc With Differential Ord2 Neut ABS# 2.19 K/ul 09/26/2015 Cbc With Differential Ord2 Lymph ABS# 1.64 K/ul 09/26/2015 Cbc With Differential Ord2 Dane ABS# 0.5 K/ul 09/26/2015 Cbc With Differential Ord2 Eos ABS# 0.1 K/ul 09/26/2015 Cbc With Differential Ord2 Baso ABS# 0.0 K/ul 09/26/2015 Cbc With Differential Ord2 New Analyzer Notice Please note new ref ranges starting 05-23-2015 due to implemntation of new five part differential hematolgy analyzer. 09/26/2015 Review of Systems System Result Effective Dates Constitutional No recent illness 2017 Constitutional No [...] rate 12/08/2011 None Full Exam - General 1995 Cardiovascular auscultation of heart Overall: normal heart sounds 12/08/2011 None Full Exam - General 1994 Cardiovascular auscultation of heart Overall: no murmurs 12/08/2011 None Full Exam - General 1995 Integument inspection of skin Dermatitis: erythema 12/08/2011 None Full Exam - General 1995 Integument [...] bilaterally 07/29/2011 None Full Exam - General 1994 Respiratory respiratory effort/rhythm Overall: no retractions 07/29/2011 None Full Exam - General 1994 Respiratory respiratory effort/rhythm Overall: normal rate 07/29/2011 None Full Exam - General 1994 Cardiovascular auscultation of heart Overall: regular rate 07/29/2011 None Full Exam - General 1994 [...] unsteadiness 06/26/2011 None Full Exam - General 1994 Integument inspection of skin Dermatitis: erythema 06/26/2011 [...] CPT-4: J1885 12/08/2011 THER/PROPH/DIAG INJ SC/IM CPT-4: 57521 12/08/2011 TRIAMCINOLONE ACET INJ NOS CPT-4: J3301 06/26/2011 THER/PROPH/DIAG INJ SC/IM CPT-4: 33326 06/26/2011 Vital Signs Date Vital 05/28/2017 Blood Pressure 1: 130/70 Code : 8480-6 BMI: 26.9 Code : 57826-7 Heart Rate 1 : 83 bpm Height: 6'2" SpO2: 98% Weight: 212 lbs 04/08/2017 Blood Pressure 1: 122/74 Code : 8480-6 BMI: 28.1 Code : 88070-0 Heart Rate 1 : 88 bpm Height: 6'2" SpO2: 99% Weight: 222 lbs 09/22/2016 Blood Pressure 1: 128/80 Code : 8480-6 BMI: 29.4 Code : 12448-3 Heart Rate 1 : 92 bpm Height: 6'2" SpO2: 98% Temperature: 36.6 (C) / 97.8 (F) Weight: 232 lbs 09/11/2016 Blood Pressure 1: 124/78 Code : 8480-6 BMI: 29.4 Code : 75666-8 Heart Rate 1 : 78 bpm Height: 6'2" SpO2: 96% Weight: 232 lbs 06/05/2016 Blood Pressure 1: 128/82 Code : 8480-6 BMI: 31.0 Code : 10841-5 Heart Rate 1 : 80 bpm Height: 6'2" SpO2: 98% Weight: 245 lbs 10/24/2015 Blood Pressure 1: 126/74 Code : 8480-6 BMI: 29.9 Code : 01593-5 Heart Rate 1 : 71 bpm Height: 6'2" SpO2: 98% Weight: 236 lbs 10/25/2014 Blood Pressure 1: 102/74 Code : 8480-6 BMI: 30.4 Code : 05657-0 Heart Rate 1 : 76 bpm Height: 6'2" Weight: 240 lbs 10/26/2012 Blood Pressure 1: 122/82 Code : 8480-6 BMI: 32.8 Code : 01074-8 Heart Rate 1 : 72 bpm Height: 6' Respiratory Rate: 16 bpm Weight: 245 lbs 09/03/2012 Blood Pressure 1: 126/74 Code : 8480-6 BMI: 31.6 Code : 14669-9 Heart Rate 1 : 80 bpm Height: 6'2" Weight: 246 lbs 12/08/2011 Blood Pressure 1: 126/74 Code : 8480-6 Heart Rate 1: 72 bpm Respiratory Rate : 16 bpm Temperature: 36.8 (C) / 98.3 (F) Weight: 240 lbs 07/29/2011 Blood Pressure 1: 130/80 Code : 8480-6 BMI: 30.1 Code : 83465-3 Heart Rate 1 : 62 bpm Height: 6'2" Weight: 237 lbs 8 oz 06/26/2011 Blood Pressure 1: 140/72 Code : 8480-6 BMI: 32.1 Code : 66833-5 Heart Rate 1 : 68 bpm Height: 6' Respiratory Rate: 16 bpm Weight: 237 lbs Functional Status No Functional Status data History of Present Illness Symptom Name Status Result Effective Date Notes dizziness Quality constant 05/28/2017 None dizziness Quality [...] Performer Location Codes Date EST. PATIENT, LEVEL IV Diagnosis: Abnormal weight loss[ICD10: R63.4] Diagnosis: Benign paroxysmal vertigo, bilateral[ICD10: H81.13] Diagnosis: 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[ICD10: M05.732] Diagnosis: Other malaise[ICD10: R53.81] Diagnosis: Other fatigue[ICD10: R53.83] Misty Azul MD, [facility] CPT-4 : 56456 05/28/2017 47073 EST. PATIENT, LEVEL III Diagnosis: 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[ICD10: M05.732] Misty Azul MD, [facility] CPT -4: 47519 04/08/2017 20601 EST. PATIENT, LEVEL IV Diagnosis: Acute bronchitis due to other specified organisms[ICD10: J20.8] Diagnosis: Other allergic rhinitis[ICD10: J30.89] Misty Azul MD, [facility] CPT-4: 17497 09/22/2016 ([id number]) 86748 EST. PATIENT, LEVEL III Diagnosis: Benign paroxysmal vertigo, bilateral[ICD10: H81.13] [facility] CPT-4: 80521 09/11/2016 02525 EST. PATIENT, LEVEL III Diagnosis: Pain in right wrist[ICD10: M25.531] [facility] CPT-4: 98889 06/05/2016 ([id number]) PREV VISIT EST AGE 18-39 Diagnosis: Encounter for general adult medical examination without abnormal findings[ICD10: Z00.00] Alma Azul MD, [facility] CPT-4: 39884 10/24/2015 ([id number]) PREV VISIT EST AGE 18-39 Diagnosis: PREVENTIVE PHYSICAL EXAM[ICD9: V70.0] Alma Azul MD, [facility] CPT-4: 43032 10/25/2014 ([id number]) 89890 EST. PATIENT, LEVEL III Diagnosis: ACHILLES TENDINITIS[ICD9: 726.71] Alma Azul MD, [facility] CPT-4: 99665 10/26/2012 ([id number]) 00104 EST. PATIENT, LEVEL III Diagnosis: Rash[ICD9: 782.1] Diagnosis: PRURITIC DISORDER[ICD9: 698.9] Lee Ann Azul MD, [facility] CPT-4: 36490 09/03/2012 ([id number]) 89082 EST. PATIENT, LEVEL III Diagnosis: ACUTE URI[ICD9: 465.9] Diagnosis: Rash[ICD9: 782.1] Lee Ann Azul MD, [facility] CPT-4: 53133 12/08/2011 ([id number]) 59170 EST. PATIENT, LEVEL III Diagnosis: PRURITIC DISORDER[ICD9: 698.9] Diagnosis: NONSPECIF SKIN ERUPT NEC[ICD9: 782.1] Alma Azul MD, [facility] CPT-4: 91772 07/29/2011 07672 EST. PATIENT, LEVEL IV Diagnosis: Rash[ICD9: 782.1] Diagnosis: Localized pruritus[ICD9: 698.9] Diagnosis: Elevated blood pressure[ICD9: 796.2] Alma Azul MD, [facility] CPT-4: 08061 06/26/2011 Plan of Care Planned Activity Notes Codes Status Date Visit Plan: BPPV - Benign Paroxysmal Positional [...] indicated. 05/28/2017 [phone] [facility] ([facility] Moderate 05/28/2017 Patient Education: Patient Medication Summary Completed 05/28/2017 Visit Plan: RA - acute flare - will send RX - pt has an appointment with a new watershed engineer in May. Pt is to notify clinic if symptoms do not improve, if they worsen, or with any acute changes, questions, or concerns. 04/08/2017 Visit Plan: RA - acute flare - will send RX - pt has an appointment with a new watershed engineer in May. Pt is to notify clinic if symptoms do not improve, if they worsen, or with any acute changes, questions, or concerns. 04/08/2017 [facility] [phone] [facility] ([facility] min) Complex 04/08/2017 Patient Education: Patient [...] spray. 09/22/2016 App[facility]ment[facility] [phone] [facility] [place] (15 min) Moderate 09/22/2016 Patient Education: Patient [...] interventions. 09/11/2016 Appointment: Lee Ann Tejada WPtel: [facility][note 3]5 [phone] [place] (30 min) Complex 09/11/2016 Patient Education: Patient [...] check labs 06/05/2016 Appointment: Misty Zarate WPtel: [facility]note 3[facility] [place] (10 min) Simple 06/05/2016 Patient Education: Patient [...] renal functioning. 10/24/2015 Appointment: Alma Azul WPtel: [facility] [place] (15 min) Moderate 10/24/2015 Patient Education: Patient [...] renal functioning. 10/25/2014 Appointment: Alma Azul WPtel: [address] [place], [place] [phone] (15 min) Moderate 10/25/2014 Patient Education: Patient Medication Summary Completed 10/25/2014 Visit Plan: Achilles tendonitis - uncontrolled symptoms- recommend pt to take antiinflammatory as directed for pain control. Use tylenol for break through pain symptoms. 10/26/2012 Appointment: Alma Azul WPtel: [address] [place], [place] [phone] Follow up 10/26/2012 Patient Education: Patient Medication [...] understanding. 09/03/2012 Appointment: Lee Ann Tejada WPtel: [address] [place] [address] Other 09/03/2012 Patient Education: Patient Medication Summary [...] office. 12/08/2011 Appointment: Lee Ann Tejada WPtel: [facility][note 3]4 [phone] Other 12/08/2011 Patient Education: Patient Medication Summary Completed 12/08/2011 Visit Plan: Rash - Itching - uncertain eitiology - but with his response to the steroid and antifungal and the diffuse look of a folliculitis - I will treat Noah with a different antifungal and steroid and follow his progress. itraconazole 100 mg x 20 days prednisone taper 07/29/2011 Appointment: Alma Azul WPtel: [phone] Other 07/29/2011 Patient Education: Patient Medication Summary [...] one week. 06/26/2011 Appointment: Alma Azul WPtel: [phone] Other 06/26/2011 Patient Education: Patient Medication Summary [...] pt has an appointment with a new watershed engineer in May. Pt is to notify clinic if symptoms do not improve, if they worsen, or with any acute changes, questions, or concerns. . RA - acute flare - will send RX - pt has an appointment with a new watershed engineer in May. Pt is to notify clinic [...] mg x 20 days prednisone taper . Rash-culture done today in the office-plan [...] x-ray - if needed will change antibiotics. [facility] allergy medicine - I will send as [...] x-ray - if needed will change antibiotics. [facility] allergy medicine - I will send as [...]
[2017-07-13 16:08] VITALS: BP 138/86
--- OUTSIDE RECORDS SUMMARY | 2017-07-13 16:08 | XMS REPORT | CCD ---
Author Author Alma Azul MD, [facility] Address [address] [place] [address] Phone Care Team Providers Care Worship Director Name Role Phone PP Unavailable CCM Unavailable Summary Purpose Interface Exchange Insurance Providers Payer name Policy type / Coverage type Covered constitution party ID Effective Begin Date Effective End Date [facility] [id number] 2016 Unknown Family history Mother Diagnosis Age [...] Unknown House 06/26/2011 Employment Unknown Currently employed [employer] 06/26/2011 Allergies, Adverse Reactions, Alerts Allergies, Adverse [...] Fill Instructions meclizine 25 mg tablet RxNorm: 429630 1 Tablet(s) PO TID as needed 05/28/2017 06/06/2017 Active Zofran ODT 4 mg disintegrating tablet RxNorm: 763572 1 Tablet(s) PO TID as needed 05/28/2017 06/06/2017 Active clobetasol 0.05 % topical cream RxNorm: 583501 APPLY TO AFFECTED AREAS TOP as needed FOR ECZEMA 05/06/2017 No Stop Date Active Voltaren 1 % topical gel RxNorm: 372606 1 Application TOP QID as needed 04/08/2017 No Stop Date Active prednisone 10 mg tablet RxNorm: 973583 Tablet(s) PO UD 201605/27/2017 Inactive 6,5,4,3,2,1 Kenalog 40 mg/mL suspension for injection RxNorm: 6949378 Milliliter(s) Inj 04/08/2017 04/08/2017 Inactive Zyrtec 10 mg tablet RxNorm: 6649592 1 Tablet(s) PO daily 09/2210/21/2016 Inactive Kenalog 40 mg/mL suspension for injection RxNorm: 5075013 1 Milliliter(s) Inj 09/22/2016 09/22/2016 Inactive prednisone 20 mg tablet RxNorm: 049278 1 Tablet(s) PO daily 05/27/2017 Inactive clobetasol 0.05 % topical cream RxNorm: 115076 APPLY TO AFFECTED AREAS TOP as needed FOR ECZEMA 06/21/2015 05/05/2017 Inactive prednisone 10 mg tablets in a dose pack RxNorm: 611468 Tablet(s) PO 09/03/2012 09/08/2012 Inactive Diflucan 150 mg tablet RxNorm: 688143 1 Tablet(s) PO daily 09/12/2012 Inactive nystatin-triamcinolone 100,000 unit/gram-0.1 % Ointment RxNorm: 7426799 1 Application TOP BID 12/15/2011 12/14/2011 Inactive nystatin-triamcinolone 100,000 unit/gram-0.1 % Ointment RxNorm: 6172586 1 Application TOP BID 12/15/2011 12/28/2011 Inactive Bactrim DS 800 mg-160 mg tablet RxNorm: 789796 1 Tablet(s) PO BID 12/08/2011 12/17/2011 Inactive prednisone 10 mg tablets in a dose pack RxNorm: 335843 Tablet(s) PO UD 6-5-4-3-2- 1 12/08/2011 12/13/2011 Inactive itraconazole 100 mg Cap RxNorm: 953465 1 Capsule(s) PO 201110/25/2012 Inactive Kenalog 40 mg/mL Susp for Injection RxNorm: 8175428 Milliliter(s) Inj 06/26/2011 06/26/2011 Inactive Kenalog 40 mg/mL Susp for Injection RxNorm: 5018701 2 Milliliter(s) Inj 06/26/2011 06/26/2011 Inactive meloxicam 15 mg tablet RxNorm: 151811 1 Tablet(s) PO daily No Start Date Active itraconazole 100 mg Cap RxNorm: 105303 1 Capsule(s) PO No Start Date 10/21/2011 Inactive clobetasol 0.05 % topical cream RxNorm: 763244 APPLY TO AFFECTED AREAS TOP as needed FOR ECZEMA No Start Date 2015 Inactive Medication Administered Medication Codes Instructions Start Date Status Kenalog 40 mg/mL suspension for injection RxNorm: 7584729 Milliliter 04/08/2017 No longer Active Kenalog 40 mg/mL suspension for injection RxNorm: 3636045 1Milliliter 09/22/2016 No longer Active Kenalog 40 mg/mL Susp for Injection RxNorm: 1184153 2Milliliter 06/26/2011 No longer Active Immunizations No [...] Code Item Item Code Result Date Zoila 410591 ZOILA (ZACH) SCREEN DETECTED 06/13/2016 Zoila 132398 ZOILA (IFA) TITER 1:160 06/13/2016 Zoila 140188 ZOILA PATTERN SPECKLED 06/13/2016 Zoila 954365 06/13/2016 Cbc With Differential Ord2 WBC 3.84 [...] 29.6 pg 06/05/2016 Cbc With Differential Ord2 [place]% 10.4 % 06/05/2016 Cbc With Differential Ord2 [...] 1.19 K/ul 06/05/2016 Cbc With Differential Ord2 [place] ABS# 0.4 K/ul 06/05/2016 Cbc With Differential Ord2 Eos ABS# 0.1 K/ul 06/05/2016 Cbc With Differential Ord2 Baso ABS# 0.0 K/ul 06/05/2016 C-Reactive Protein Qnt Crqnt CRP 0.7 mg/dl 06/05/2016 Sed Rate Ord21 ESR 4 mm/hr 06/05/2016 Ra Factor Uoq964 RA FACTOR 21.4 IU/ml 06/05/2016 Uric Acid Ord77 Uric A 6.2 mg/dL 06/05/2016 Lipid Ord30 CHOL 193 mg/dL 09/26/2015 Lipid Ord30 HDL 38.0 mg/dl 09/26/2015 Lipid Ord30 TRIG 187 mg/dL 09/26/2015 Lipid Ord30 LDL 118 mg/dL 09/26/2015 Lipid Ord30 C/HDL 5.1 Ratio 09/26/2015 Tsh Ord6 hTSH II 1.78 uIU/mL 09/26/2015 Comp Metabolic Eic432 NA 135 mEq/L 09/26/2015 Comp Metabolic Ycl999 K 4.3 mEq/L 09/26/2015 Comp Metabolic Iku159 CL 102 mEq/L 09/26/2015 Comp Metabolic Uah524 CO2 30.0 mEq/L 09/26/2015 Comp Metabolic Vlj795 ANION GAP 7 09/26/2015 Comp Metabolic Vlf478 GLUCOSE 105 mg/dL 09/26/2015 Comp Metabolic Hgi486 Creat 0.9 mg/dL 09/26/2015 Comp Metabolic Ntj915 eGFR 102 ml/min/1.73m2 09/26/2015 Comp Metabolic Neg944 BUN 13 mg/dL 09/26/2015 Comp Metabolic Tbj011 B/C Ratio 14.4 Ratio 09/26/2015 Comp Metabolic Jny163 CALCIUM 9.1 mg/dL 09/26/2015 Comp Metabolic Plw787 ALK PHOS 53 U/L 09/26/2015 Comp Metabolic Gaw683 AST(SGOT) 18 U/L 09/26/2015 Comp Metabolic Lsw615 ALT(SGPT) 27 U/L 09/26/2015 Comp Metabolic Ujm307 BILI T 0.5 mg/dL 09/26/2015 Comp Metabolic Sqj680 ALBUMIN 4.4 g/dL 09/26/2015 Comp Metabolic Wht037 TPRO 6.9 g/dL 09/26/2015 Comp Metabolic Opf896 GLOB 2.5 g/dL 09/26/2015 Comp Metabolic Tfy581 A/G Ratio 1.7 Ratio 09/26/2015 Comp Metabolic Ysg236 Osmo 271 mOsmo 09/26/2015 Cbc With Differential [...] 29.0 pg 09/26/2015 Cbc With Differential Ord2 [place]% 11.4 % 09/26/2015 Cbc With Differential Ord2 [...] 1.64 K/ul 09/26/2015 Cbc With Differential Ord2 [place] ABS# 0.5 K/ul 09/26/2015 Cbc With Differential [...] CPT-4: J1885 12/08/2011 THER/PROPH/DIAG INJ SC/IM CPT-4: 07241 12/08/2011 TRIAMCINOLONE ACET INJ NOS CPT-4: J3301 06/26/2011 THER/PROPH/DIAG INJ SC/IM CPT-4: 13660 06/26/2011 Vital Signs Date Vital 05/28/2017 Blood Pressure 1: 130/70 Code : 8480-6 BMI: 26.9 Code : 54631-1 Heart Rate 1 : 83 bpm Height: 6'2" SpO2: 98% Weight: 212 lbs 04/08/2017 Blood Pressure 1: 122/74 Code : 8480-6 BMI: 28.1 Code : 31074-4 Heart Rate 1 : 88 bpm Height: 6'2" SpO2: 99% Weight: 222 lbs 09/22/2016 Blood Pressure 1: 128/80 Code : 8480-6 BMI: 29.4 Code : 94492-4 Heart Rate 1 : 92 bpm Height: 6'2" SpO2: 98% Temperature: 36.6 (C) / 97.8 (F) Weight: 232 lbs 09/11/2016 Blood Pressure 1: 124/78 Code : 8480-6 BMI: 29.4 Code : 04262-5 Heart Rate 1 : 78 bpm Height: 6'2" SpO2: 96% Weight: 232 lbs 06/05/2016 Blood Pressure 1: 128/82 Code : 8480-6 BMI: 31.0 Code : 64277-6 Heart Rate 1 : 80 bpm Height: 6'2" SpO2: 98% Weight: 245 lbs 10/24/2015 Blood Pressure 1: 126/74 Code : 8480-6 BMI: 29.9 Code : 18934-5 Heart Rate 1 : 71 bpm Height: 6'2" SpO2: 98% Weight: 236 lbs 10/25/2014 Blood Pressure 1: 102/74 Code : 8480-6 BMI: 30.4 Code : 31590-4 Heart Rate 1 : 76 bpm Height: 6'2" Weight: 240 lbs 10/26/2012 Blood Pressure 1: 122/82 Code : 8480-6 BMI: 32.8 Code : 89931-0 Heart Rate 1 : 72 bpm Height: 6' Respiratory Rate: 16 bpm Weight: 245 lbs 09/03/2012 Blood Pressure 1: 126/74 Code : 8480-6 BMI: 31.6 Code : 17284-4 Heart Rate 1 : 80 bpm Height: 6'2" Weight: 246 lbs 12/08/2011 Blood Pressure 1: 126/74 Code : 8480-6 Heart Rate 1: 72 bpm Respiratory Rate : 16 bpm Temperature: 36.8 (C) / 98.3 (F) Weight: 240 lbs 07/29/2011 Blood Pressure 1: 130/80 Code : 8480-6 BMI: 30.1 Code : 22259-0 Heart Rate 1 : 62 bpm Height: 6'2" Weight: 237 lbs 8 oz 06/26/2011 Blood Pressure 1: 140/72 Code : 8480-6 BMI: 32.1 Code : 17495-3 Heart Rate 1 : 68 bpm Height: [...] Diagnosis: Other fatigue[ICD10: R53.83] Misty Azul MD, [facility] CPT-4 : 88547 05/28/2017 01181 EST. PATIENT, LEVEL III Diagnosis: 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[ICD10: M05.732] Misty Azul MD, [facility] CPT -4: 44332 04/08/2017 09445 EST. PATIENT, LEVEL IV Diagnosis: Acute bronchitis due to other specified organisms[ICD10: J20.8] Diagnosis: Other allergic rhinitis[ICD10: J30.89] Misty Azul MD, [facility] CPT-4: 83724 09/22/2016 ([id number]) 09480 EST. PATIENT, LEVEL III Diagnosis: Benign paroxysmal vertigo, bilateral[ICD10: H81.13] [facility] CPT-4: 50491 09/11/2016 41775 EST. PATIENT, LEVEL III Diagnosis: Pain in right wrist[ICD10: M25.531] [facility] CPT-4: 69762 06/05/2016 ([id number]) PREV VISIT EST AGE 18-39 Diagnosis: Encounter for general adult medical examination without abnormal findings[ICD10: Z00.00] Alma Azul MD, [facility] CPT-4: 49748 10/24/2015 ([id number]) PREV VISIT EST AGE 18-39 Diagnosis: PREVENTIVE PHYSICAL EXAM[ICD9: V70.0] Alma Azul MD, [facility] CPT-4: 17142 10/25/2014 ([id number]) 42331 EST. PATIENT, LEVEL III Diagnosis: ACHILLES TENDINITIS[ICD9: 726.71] [facility] CPT-4: 90876 10/26/2012 ([id number]) 08298 EST. PATIENT, LEVEL III Diagnosis: Rash[ICD9: 782.1] Diagnosis: PRURITIC DISORDER[ICD9: 698.9] Lee Ann Azul MD, [facility] CPT-4: 22146 09/03/2012 ([id number]) 33556 EST. PATIENT, LEVEL III Diagnosis: ACUTE URI[ICD9: 465.9] Diagnosis: Rash[ICD9: 782.1] [facility] CPT-4: 81618 12/08/2011 ([id number]) 82764 EST. PATIENT, LEVEL III Diagnosis: PRURITIC DISORDER[ICD9: 698.9] Diagnosis: NONSPECIF SKIN ERUPT NEC[ICD9: 782.1] [facility] CPT-4: 72194 07/29/2011 92900 EST. PATIENT, LEVEL IV Diagnosis: Rash[ICD9: 782.1] Diagnosis: Localized pruritus[ICD9: 698.9] Diagnosis: Elevated blood pressure[ICD9: 796.2] Alma Azul MD, [facility] CPT-4: 32068 06/26/2011 Plan of Care Planned Activity Notes [...] check labs and treat as indicated. 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 Pt is to notify clinic if symptoms do not improve, if they worsen, or with any acute changes, questions, or concerns. 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 Pt is to notify clinic if symptoms do not improve, if they worsen, or with any acute changes, questions, or concerns. 04/08/2017 Appointment: Misty Zarate WPtel: [phone] [facility] (30 min) Complex 04/08/2017 Patient Education: Patient [...] allergy spray. 09/22/2016 [phone] ([facility] Moderate 09/22/2016 Patient Education: Patient [...] interventions. 09/11/2016 Appointment: Lee Ann Tejada WPtel: [phone] [phone] [place] (30 min) Complex 09/11/2016 Patient [...] check labs 06/05/2016 Appointment: Misty Zarate WPtel: [facility] [place] (10 min) Simple 06/05/2016 Patient Education: [...] renal functioning. 10/24/2015 Appointment: Alma Azul WPtel: [facility] [place] (15 min) Moderate 10/24/2015 Patient Education: [...] renal functioning. 10/25/2014 Appointment: [facility]ul [facility] ([facility] min) Moderate 10/25/2014 Patient Education: Patient Medication Summary Completed 10/25/2014 Visit Plan: Achilles tendonitis - uncontrolled symptoms- recommend pt to take antiinflammatory as directed for pain control. Use tylenol for break through pain symptoms. 10/26/2012 Appointment: Alma Azul WPtel: [facility] Follow up 10/26/2012 Patient Education: Patient [...] understanding. 09/03/2012 Appointment: Lee Ann Tejada WPtel: [address] [place], [place] [phone] [place] [address] Other 09/03/2012 Patient Education: Patient Medication Summary [...] in the office. 12/08/2011 Appointment: Lee Ann Tjeada WPtel: [phone] Other 12/08/2011 Patient Education: Patient Medication Summary Completed 12/08/2011 Visit Plan: Rash - Itching - uncertain eitiology - but with his response to the steroid and antifungal and the diffuse look of a folliculitis - I will treat Noah with a different antifungal and steroid and follow his progress. itraconazole 100 mg x 20 days prednisone taper 07/29/2011 Appointment: [facility]ul [phone] Other 07/29/2011 Patient Education: Patient Medication Summary [...] one week. 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 Pt is to notify clinic if symptoms do not improve, if they worsen, or with any acute changes, questions, or concerns. . 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 Pt is to notify clinic [...]
--- OUTSIDE RECORDS SUMMARY | 2017-07-13 16:08 | XMS REPORT ---
Author Author BOBBI HERNANDEZ [facility] Address [address] [place] [address] Care Team Providers Care Navy Material Inspector Name Role Phone BOBBI HERNANDEZ Unavailable PROBLEMS Unknown Problems ALLERGIES No Known Allergies SOCIAL HISTORY Never Assessed PLAN OF CARE VITAL SIGNS Height 74 in 2016-09-20 Weight 224.8 lbs 2016-09-20 Temperature 98.4 degrees Fahrenheit 2016-09-20 Heart Rate 76 bpm 2016-09-20 Respiratory Rate 20 2016-09-20 BMI 28.86 kg/m2 2016-09-20 Blood pressure systolic 124 mmHg 2016-09-20 Blood pressure diastolic 74 mmHg 2016-09-20 MEDICATIONS Medication Instructions Dosage Frequency Start Date End Date Duration Status Meloxicam Active PredniSONE 20 mg Orally Once a day 2 tablets 24h September, September, 05 days Active Doxycycline Hyclate 100 mg Orally every 12 hrs 1 capsule 12h September, September, 10 days Active RESULTS No Results PROCEDURES No Known procedures IMMUNIZATIONS No Known Immunizations MEDICAL (GENERAL) HISTORY Type Description Date Medical History RA Surgical History unbilical hernia repair 1980
[2017-07-13] MEDS ORDERED: NS IV 1000 ML 1,000 ML IV SCH (16:10)
[2017-07-13] MEDS ORDERED: METOCLOPRAMIDE INJ 10 MG/2 ML (REGLAN) IVP NR (16:15)
[2017-07-13] MEDS: AA 4.25% W/LYTES IN D5W IV SOL 1,000 ML IV SCH (16:54)
[2017-07-13 17:04] LABS: ALANINE AMINOTRANSFERASE 19 U/L (0-55); ALBUMIN 4.6 GM/DL (3.2-4.5); ALKALINE PHOSPHATASE 51 U/L (40-136); BILIRUBIN,TOTAL 0.4 MG/DL (0.1-1.0); BUN/CREATININE RATIO 16; CALCIUM 9.9 MG/DL (8.5-10.1); CARBON DIOXIDE 22 MMOL/L (21-32); CHLORIDE 107 MMOL/L (98-107); GFR ESTIMATED > 60; GLUCOSE 93 MG/DL (70-105); POTASSIUM 3.6 MMOL/L (3.6-5.0); SODIUM 138 MMOL/L (135-145); TOTAL PROTEIN 7.6 GM/DL (6.4-8.2)
[2017-07-13] MEDS: SUCRALFATE 1 GM (CARAFATE) TAB PO SCH ×2 (17:34→21:09)
[2017-07-13] MEDS: METOCLOPRAMIDE INJ 10 MG/2 ML (REGLAN) IVP SCH (17:36)
[2017-07-13] MEDS: ONDANSETRON 4 MG/2 ML (SDV) Z0FRAN IVP PRN (19:28)
[2017-07-13 19:30] VITALS: BP 120/75
[2017-07-13] MEDS ORDERED: CATHETER FLUSH 10 ML SYR IV PRN (20:15)
[2017-07-13] MEDS ORDERED: INFLUENZA TRIvalent 2017-2018 0.5 ML/45 MCG SYR IM ONE (20:15)
--- NOTE | 2017-07-13 20:51 | Consultation ---
History of Present Illness History of Present Illness Patient Consulted On(sara/time) 07/13/17 20:44 Date Seen by Provider: Jul 13, 2017 Time Seen by Provider: 20:44 History of Present Illness Consult requested by Dr. Azul for epigastric abdominal pain and nausea. Patient is a 37-year-old male whose had approximately 8 weeks of abdominal pain and nausea. He's had workup of his gallbladder ultrasound which was normal. Patient was seen in emergency department by myself over last weekend and was sent home to be on Protonix and Carafate and was planning on EGD on Thursday. Patient states that since then he has his continued to worsen. Having extreme nausea. His pain is in the epigastric area with moderate intensity. No radiation of pain. Nothing makes it better and is unsure if he is making it worse. Patient also having some diarrhea and not really getting much nutrition. Patient is getting more concerned because this is not his normal self until he may be getting a little bit depressed as well. Patient was seen by Dr. Azlu today in the office who admitted him for observation. Patient denies any fever sweats chills shortness of breath or chest pain. Patient has noted weight loss. Allergies and Home Medications Allergies Coded Allergies: No Known Drug Allergies (Unverified , 07/13/17) Home Medications Sucralfate 1 Gm Tablet, 1 GM PO QID, (Reported) Patient Home Medication List Home Medication List Reviewed: Yes Past Jgezvka-Puxaqg-Ohcnft Hx Patient Social History Alcohol Use: Denies Use Recreational Drug Use: No Drug of Choice: THC Former Smoker, Quit: Jun 15, 2017 Type Used: Cigarettes Recent Foreign Travel: No Contact w/Someone Who Travel: No Recent Infectious Disease Expo: No Recent Hopitalizations: No Physical Abuse Screen: No Sexual Abuse: No Seasonal Allergies Seasonal Allergies: No Surgeries History of Surgeries: Yes (HERNIA BABY) Respiratory History of Respiratory Disorde: No Cardiovascular History of Cardiac Disorders: No Neurological History of Neurological Disord: No Reproductive System Sexually Transmitted Disease: No HIV/AIDS: No Genitourinary History of Genitourinary Disor: No Gastrointestinal History of Gastrointestinal Di: Yes Gastrointestinal Disorders: Gastroesophageal Reflux, Chronic Diarrhea Musculoskeletal History of Musculoskeletal Dis: Yes Musculoskeletal Disorders: Rheumatoid Arthritis Endocrine History of Endocrine Disorders: No HEENT History of HEENT Disorders: No Loss of Vision: Bilateral Cancer History of Cancer: No Psychosocial History of Psychiatric Problem: Yes Behavioral Health Disorders: Depression Integumentary History of Skin or Integumenta: Yes Skin/Integumentary Disorders: Eczema Blood Transfusions History of Blood Disorders: No Adverse Reaction to a Blood Tr: No Family Medical History Significant Family History: No Pertinent Family Hx Family Medial History: Review of Systems-General Constitutional: see HPI, weight loss EENTM: no symptoms reported Respiratory: no symptoms reported Cardiovascular: no symptoms reported Gastrointestinal: see HPI Genitourinary: no symptoms reported Musculoskeletal: no symptoms reported Skin: no symptoms reported Psychiatric/Neurological: See HPI Physical Exam-General Problems Physical Exam Vital Signs Vital Signs - First Documented 07/13/17 16:08 Temp 98.9 Pulse 69 Resp 18 B/P (MAP) 138/86 (103) Pulse Ox 100 O2 Delivery Room Air Capillary Refill : General Appearance: no apparent distress (Laying in bed appears fatigued) HEENT: PERRL/EOMI, normal ENT inspection Neck: non-tender, full range of motion, supple Respiratory: no respiratory distress, no accessory muscle use Cardiovascular: regular rate, rhythm Gastrointestinal: soft, tenderness (Epigastric region) Rectal: deferred Back: normal inspection, no CVA tenderness Extremities: non-tender, normal inspection Neurologic/Psychiatric: steel heater II-XII nml as tested, no motor/sensory deficits, alert, oriented x 3, other (Flat affect) Skin: normal color, warm/dry Lymphatic: no adenopathy Data Review Labs Laboratory Tests 07/13/17 16:40: Sodium Level 138, Potassium Level 3.6, Chloride Level 107, Carbon Dioxide Level 22, Anion Gap 9, Blood Urea Nitrogen 13, Creatinine 0.80, Estimat Glomerular Filtration Rate > 60, BUN/Creatinine Ratio 16, Glucose Level 93, Calcium Level 9.9, Total Bilirubin 0.4, Aspartate Amino Transf (AST/SGOT) 15, Alanine Aminotransferase (ALT/SGPT) 19, Alkaline Phosphatase 51, Total Protein 7.6, Albumin 4.6H Assessment/Plan Assessment/Plan Assessment/Plan Patient is 37-year-old male with epigastric abdominal pain, nausea and vomiting , weight loss and diarrhea. Patient getting IV fluids Nausea medications to control nausea Discuss with Dr. Azul and CLAY scan scheduled for in the morning to further evaluate the gallbladder. We'll also plan on EGD tomorrow. Risk and benefits of EGD were discussed with the patient and his family who wished to proceed with plan. All questions were answered. Clinical Quality Measures DVT/VTE Risk/Contraindication: RFS Level Per Nursing on Admit: 1=Low/No VTE PPX PAL TRIPP DO Jul 13, 2017 20:50
[2017-07-13] MEDS: PANTOPRAZOLE 40 MG/10 ML (PROTONIX) VIAL IV SCH (21:08)
[2017-07-13 23:20] VITALS: BP 110/68
[2017-07-14] MEDS: METOCLOPRAMIDE INJ 10 MG/2 ML (REGLAN) IVP SCH ×5 (01:04→22:48)
[2017-07-14] MEDS: AA 4.25% W/LYTES IN D5W IV SOL 1,000 ML IV SCH ×3 (01:04→20:17)
[2017-07-14 03:40] VITALS: BP 107/67
[2017-07-14 06:25] LABS: HEMOGLOBIN 15.1 G/DL (13.3-17.7); MEAN PLATELET VOLUME 10.4 FL (7.4-10.4); RED BLOOD COUNT 5.01 10^6/uL (4.35-5.85); RED CELL DISTRIBUTION WIDTH 13.6 % (10.0-14.5); WHITE BLOOD COUNT 3.4 10^3/uL (4.3-11.0)
[2017-07-14] MEDS ORDERED: PANT40TA3 PO (08:07)
[2017-07-14] MEDS ORDERED: PROM25TA14 PO (08:07)
[2017-07-14] MEDS ORDERED: SUCR1TAB PO (08:07)
[2017-07-14] MEDS ORDERED: HYDR200T46 PO (08:07)
--- NOTE | 2017-07-14 08:13 | Progress Note (SOAP) ---
Subjective Date Seen by Provider: Jul 14, 2017 Time Seen by Provider: 08:15 Subjective/Events-last exam PT IS A 37 Y/O MALE WHO WAS ADMITTED OBSERVATION LAST NIGHT FROM MY CLINIC. - SEE OFFICE NOTE FOR H AND P. Objective Exam Vital Signs Date Time Temp Pulse Resp B/P (MAP) Pulse Ox O2 Delivery O2 Flow Rate FiO2 07/14/17 03:40 97.6 63 17 107/67 (80) 99 Room Air 07/13/17 23:20 98.5 60 16 110/68 (82) 99 Room Air 07/13/17 19:30 98.4 62 20 120/75 (90) 99 Room Air 07/13/17 16:08 98.9 69 18 138/86 (103) 100 Room Air I & O 07/14/17 07:00 Intake Total 100 ml Balance 100 ml Capillary Refill : Results Lab Laboratory Tests 07/13/17 16:40: Sodium Level 138, Potassium Level 3.6, Chloride Level 107, Carbon Dioxide Level 22, Anion Gap 9, Blood Urea Nitrogen 13, Creatinine 0.80, Estimat Glomerular Filtration Rate > 60, BUN/Creatinine Ratio 16, Glucose Level 93, Calcium Level 9.9, Total Bilirubin 0.4, Aspartate Amino Transf (AST/SGOT) 15, Alanine Aminotransferase (ALT/SGPT) 19, Alkaline Phosphatase 51, Total Protein 7.6, Albumin 4.6H 07/14/17 05:16: White Blood Count 3.4L, Red Blood Count 5.01, Hemoglobin 15.1, Hematocrit 43, Mean Corpuscular Volume 86, Mean Corpuscular Hemoglobin 30, Mean Corpuscular Hemoglobin Concent 35, Red Cell Distribution Width 13.6, Platelet Count 184, Mean Platelet Volume 10.4 Assessment/Plan Assessment/Plan Assess & Plan/Chief Complaint ABDOMINAL PAIN WEIGHT LOSS NAUSEA EMESIS FATIGUE PT ADMITTED TO THE HOSPITAL LAST NIGHT - STARTED ON IV FLUIDS - CLINAMIX WITH LYTES, REGLAN, ZOFRAN, PROTONIX IV AND CARAFATE. PT TO HAVE HIDA SCAN TODAY WELL EGD. IF THESE ARE NEGATIVE - THE NEXT STEP WILL BE A BARIUM SWALLOW/ SMALL BOWEL FOLLOW THROUGH TO SEE IF HIS STOMACH IS NOT WORKING CORRECTLY - POSSIBLE GASTROPARESIS. Clinical Quality Measures DVT/VTE Risk/Contraindication: RFS Level Per Nursing on Admit: 1=Low/No VTE PPX HAROON WILKERSON MD Jul 14, 2017 08:13
[2017-07-14] MEDS ORDERED: MECL-106 PO (08:37)
[2017-07-14] MEDS ORDERED: ONDA4TAB11 PO (08:37)
[2017-07-14] MEDS: SUCRALFATE 1 GM (CARAFATE) TAB PO SCH ×4 (09:00→20:22)
--- NOTE | 2017-07-14 09:50 | Diagnostic Imaging Report ---
INDICATION: Nausea. TECHNIQUE: Acquisitions were acquired over the abdomen after the intravenous injection of 5.33 mCi of technetium 99m Choletec. The ejection fraction was calculated after the patient drank Ensure. FINDINGS: There is homogeneous uptake of isotope throughout the liver. There is significant accumulation within the gallbladder by 30 minutes. There is free flow of activity in the small bowel. The ejection fraction was 49.7%. IMPRESSION: No evidence of cystic duct obstruction with a lower limits of normal gallbladder ejection fraction of 49.7%. Dictated by: Dictated on workstation # [id number]
[2017-07-14] MEDS: PANTOPRAZOLE 40 MG/10 ML (PROTONIX) VIAL IV SCH ×2 (10:16→20:22)
--- NOTE | 2017-07-14 12:29 | Progress Note ---
Subjective Date Seen by Provider: Jul 14, 2017 Time Seen by Provider: 12:26 Subjective/Events-last exam Patient was feeling a little better this morning but nausea has returned. Abdominal no significant change from yesterday. Having multiple loose stools. Denies fever sweats chills shortness of breath or chest pain. Objective Exam Vital Signs Date Time Temp Pulse Resp B/P (MAP) Pulse Ox O2 Delivery O2 Flow Rate FiO2 07/14/17 03:40 97.6 63 17 107/67 (80) 99 Room Air 07/13/17 23:20 98.5 60 16 110/68 (82) 99 Room Air 07/13/17 19:30 98.4 62 20 120/75 (90) 99 Room Air 07/13/17 16:08 98.9 69 18 138/86 (103) 100 Room Air I & O 07/14/17 06:59 Intake Total 100 ml Balance 100 ml Capillary Refill : General Appearance: No Apparent Distress HEENT: PERRL/EOMI Neck: Normal Inspection, Non Tender Respiratory: No Accessory Muscle Use, No Respiratory Distress Cardiovascular: Regular Rate, Rhythm Gastrointestinal: soft, tenderness (Epigastric region) Extremity: Normal Inspection, Non Tender Neurologic/Psychiatric: Alert, Oriented x3, No Motor/Sensory Deficits, Normal Mood/Affect, glaze grinder II-XII Norm as Tested Skin: Warm/Dry Lymphatic: No Adenopathy Results Lab Laboratory Tests 07/13/17 16:40: Sodium Level 138, Potassium Level 3.6, Chloride Level 107, Carbon Dioxide Level 22, Anion Gap 9, Blood Urea Nitrogen 13, Creatinine 0.80, Estimat Glomerular Filtration Rate > 60, BUN/Creatinine Ratio 16, Glucose Level 93, Calcium Level 9.9, Total Bilirubin 0.4, Aspartate Amino Transf (AST/SGOT) 15, Alanine Aminotransferase (ALT/SGPT) 19, Alkaline Phosphatase 51, Total Protein 7.6, Albumin 4.6H 07/14/17 05:16: White Blood Count 3.4L, Red Blood Count 5.01, Hemoglobin 15.1, Hematocrit 43, Mean Corpuscular Volume 86, Mean Corpuscular Hemoglobin 30, Mean Corpuscular Hemoglobin Concent 35, Red Cell Distribution Width 13.6, Platelet Count 184, Mean Platelet Volume 10.4 Assessment/Plan Assessment/Plan Assessment/Plan ABDOMINAL PAIN WEIGHT LOSS NAUSEA EMESIS FATIGUE DIARRHEA hida normal, plan egd today. stool cultures continue medical management Clinical Quality Measures DVT/VTE Risk/Contraindication: RFS Level Per Nursing on Admit: 1=Low/No VTE PPX PAL TRIPP DO Jul 14, 2017 12:29
[2017-07-14] MEDS: ONDANSETRON 4 MG/2 ML (SDV) Z0FRAN IVP PRN (14:39)
[2017-07-14] MEDS ORDERED: LACTATED RINGERS 1,000 ML IV ONE (15:30)
[2017-07-14] MEDS ORDERED: proPOfol 200 MG/20 ML (DIPRIVAN) VIAL IV ONE (15:34)
[2017-07-14] MEDS ORDERED: MIDAZOLAM 2 MG/2 ML (VERSED) VIAL ONE (15:35)
--- NOTE | 2017-07-14 15:57 | Progress Note-Post Operative ---
Post-Operative Progess Note Surgeon (s)/Fine Arts Chair (s) Surgeon PAL TRIPP DO Fine Arts Chair: na Pre-Operative Diagnosis nausua vomiting epigastric pain Post-Operative Diagnosis duodenitis, gastritis, slight esophagitis Procedure & Operative Findings Date of Procedure 07/14/17 Procedure Performed/Findings egd c biopsies Anesthesia Type per energy assistant Estimated Blood Loss Estimated blood loss (mL): none Specimens/Packing Specimens Removed antrum, body, ge PAL TRIPP DO Jul 14, 2017 15:57
[2017-07-14 16:45] VITALS: BP 129/81
[2017-07-14 19:59] VITALS: BP 117/78
--- NOTE | 2017-07-14 23:18 | OPERATIVE REPORT ---
DATE OF SERVICE: 07/14/2017 PREOPERATIVE DIAGNOSES: Nausea, vomiting, epigastric abdominal pain. POSTOPERATIVE DIAGNOSES: Duodenitis, gastritis esophagitis. PROCEDURE: EGD with biopsy. 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 ESTIMATED BLOOD LOSS: None. COMPLICATIONS: None. INDICATIONS: The patient is a 37-year-old male who has been having epigastric abdominal pain, intractable nausea and vomiting. He understands risks and benefits of procedure and wished to proceed with procedure. Consent was signed in the chart. PROCEDURE: The patient was taken to the endoscopy suite, placed in left lateral recumbent position. Timeout was performed. Scope was inserted in mouth, down the esophagus, stomach and into the duodenum without difficulty. There is some slight erythematous changes were in the first portion of the duodenum. There are no polyps, mass or ulcerations. The scope was then slowly retracted back into the stomach where there are erythematous changes diffusely. Biopsies of the antrum were obtained. Scope was retroflexed noting no other pathology. Scope was slowly retracted in the proximal portion. There is also an area of erythematous changes of the body of the stomach, which biopsy was obtained as well. Scope was slowly retracted back into the distal esophagus, which had just some slight erythema, no polyps, mass or ulcerations. Biopsy of the GE junction was obtained. Scope was slowly retracted back to completely remove. The patient tolerated procedure well without complications, taken to recovery room in stable condition. RECOMMENDATIONS: Continue medical management on the Protonix and Carafate. We will discuss with Dr. Azul. Job ID: [id number] DocumentID: [id number] Dictated Date: 07/14/2017 15:59:45 Room Manager Date: 07/14/2017 23:17:18 Dictated By: PAL XIAO DO
[2017-07-15] VITALS: BP 107/72
[2017-07-15] MEDS: METOCLOPRAMIDE INJ 10 MG/2 ML (REGLAN) IVP SCH (03:39)
[2017-07-15] MEDS: AA 4.25% W/LYTES IN D5W IV SOL 1,000 ML IV SCH ×2 (03:46→04:25)
[2017-07-15 04:02] VITALS: BP 123/75
[2017-07-15 07:39] VITALS: BP 116/74
--- NOTE | 2017-07-15 09:28 | Discharge Summary ---
Diagnosis/Chief Complaint Date of Admission Jul 13, 2017 at 15:58 Date of Discharge Discharge Summary Discharge Physical Examination Allergies: Coded Allergies: No Known Drug Allergies (Unverified , 07/13/17) Vitals & I&Os Vital Signs Date Time Temp Pulse Resp B/P (MAP) Pulse Ox O2 Delivery O2 Flow Rate FiO2 07/15/17 07:39 98.0 89 116/74 (88) 99 Room Air 07/15/17 04:02 17 Discharge Instructions to patient/family Please see electronic discharge instructions given to patient. Discharge Medications Reviewed and agree with Discharge Medication list on patient's Discharge Instruction sheet Clinical Quality Measures DVT/VTE Risk/Contraindication: RFS Level Per Nursing on Admit: 1=Low/No VTE PPX HAROON WILKERSON MD Jul 15, 2017 09:28
[2017-07-15] MEDS ORDERED: ONDANSETRON 8 MG (ZOFRAN) ORAL DISSOLVE TAB PO PRN (09:30)
[2017-07-15] MEDS ORDERED: ONDA4TAB11 PO (09:33)
[2017-07-15] MEDS ORDERED: METO10TA3 PO (09:33)
[2017-07-15] MEDS ORDERED: PANT40TA3 PO (09:33)
--- NOTE | 2017-07-15 09:41 | Discharge Inst-Complex ---
PDI Med Rec & Follow Up Appt. New Medications: Metoclopramide HCl (Metoclopramide HCl) 10 Mg Tablet 10 MG PO ACHS, #120 TAB Changed Medications: Ondansetron (Ondansetron Odt) 4 Mg Tab.rapdis 4 MG PO QID PRN for NAUSEA/VOMITING-1ST LINE, #75 TAB (Changed from: TID) Pantoprazole Sodium (Pantoprazole Sodium) 40 Mg Tablet.dr 40 MG PO BID, #60 TAB (Changed from: DAILY) Continued Medications: Meclizine HCl (Meclizine HCl) 25 Mg Tablet 25 MG PO TID PRN for DIZZINESS, TAB Promethazine HCl (Promethazine Tablet) 25 Mg Tablet 25 MG PO TID PRN for NAUSEA/VOMITING-2ND LINE, TAB Sucralfate (Sucralfate) 1 Gm Tablet 1 GM PO ACHS, TAB Discontinued Medications: Hydroxychloroquine Sulfate (Hydroxychloroquine Sulfate) 200 Mg Tablet 200 MG PO BID, TAB Prescription: Transmitted to Pharmacy Patient Instructions: APPT WITH NUCLEAR MEDICINE FOR GASTRIC EMPTYING STUDY - SHOW UP AT HOSPITAL AT 6:45am - STUDY TO BE DONE AT 7:15AM STUDY APPROVED BY [facility] IN [facility] Activity, Diet and PDI Resume Normal Activity: Yes Discharge Diet: Low Residue Diet for 24 Hours: No Alcohol, No [place] Foods, No Spicy Foods Drink 6-8 Glasses of Fluid/Day: Yes Driving Instructions: No Driving for 24 Hours Symptoms to Reoprt to : Fever Over 101 Degrees F For Problems or Questions: Contact Your Physician, Go to Emergency Room HAROON WILKERSON MD Jul 15, 2017 09:41
[2017-07-15] MEDS: SUCRALFATE 1 GM (CARAFATE) TAB PO SCH (09:44)
[2017-07-15] MEDS ORDERED: METOCLOPRAMIDE 10 MG (REGLAN) TAB PO SCH (11:00)
[2017-07-15 11:41] VITALS: BP 130/84
[2017-07-15 12:30] VITALS: BP 130/84
--- NOTE | 2017-07-15 14:01 | Progress Note ---
Subjective Date Seen by Provider: Jul 15, 2017 Time Seen by Provider: 08:24 Subjective/Events-last exam Patient doing a little bit better this morning. Still having some nausea but coming in waves. No significant abdominal discomfort. No liquid stools. Patient with no fever sweats chills shortness of breath or chest pain. Objective Exam Vital Signs Date Time Temp Pulse Resp B/P (MAP) Pulse Ox O2 Delivery O2 Flow Rate FiO2 07/15/17 12:30 65 16 130/84 99 Room Air 07/15/17 11:41 97.2 65 16 130/84 (99) 99 Room Air 07/15/17 07:39 98.0 89 116/74 (88) 99 Room Air 07/15/17 04:02 97.6 57 17 123/75 (91) 99 Room Air 07/15/17 00:00 97.7 55 18 107/72 (84) 98 Room Air 07/14/17 19:59 96.7 56 15 117/78 (91) 100 Room Air 07/14/17 16:45 97.0 58 15 129/81 (97) 100 Room Air I & O 07/15/17 07:00 Intake Total 1520 ml Balance 1520 ml Capillary Refill : General Appearance: No Apparent Distress HEENT: PERRL/EOMI Neck: Normal Inspection, Non Tender Respiratory: No Accessory Muscle Use, No Respiratory Distress Cardiovascular: Regular Rate, Rhythm Gastrointestinal: soft, tenderness (slight in the epigastric region) Extremity: Normal Inspection, Non Tender Neurologic/Psychiatric: Alert, Oriented x3, No Motor/Sensory Deficits, Normal 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 A gastric emptying study has been ordered. We'll continue on Protonix and Carafate. I think patient can be discharged home with close outpatient follow-up. Would also consider stopping Plaquenil, which could be cause of symptoms as well. No surgical intervention. Clinical Quality Measures DVT/VTE Risk/Contraindication: RFS Level Per Nursing on Admit: 1=Low/No VTE PPX PAL TRIPP DO Jul 15, 2017 14:01
[2017-07-15] MEDS ORDERED: PANTOPRAZOLE 40 MG (PROTONIX) TAB PO SCH (21:00)
== END 2017-07-15 12:30 | disposition home or self-care (01) ==
LOC: 4TH 15:58 → SDC 15:58 → UNDOADMOB 15:58 → UNDODISOB 07-15 12:30 → SDC 07-15 12:30
PROVIDERS: ATTEND Family Medicine
DX: R11.2 Nausea with vomiting, unspecified (principal); R63.4 Abnormal weight loss; R19.7 Diarrhea, unspecified; K29.80 Duodenitis without bleeding; K29.70 Gastritis, unspecified, without bleeding; K20.9 Esophagitis, unspecified; M06.9 Rheumatoid arthritis, unspecified; F32.9 Major depressive disorder, single episode, unspecified; Z79.899 Other long term (current) drug therapy
CPT/HCPCS: 36415; 78227; 80053; 85027

== ENCOUNTER → 2017-07-16 | Outpatient (CLI) | payer BC ==
[~2017-07-16] MED LIST changes: +HYDR200T46 PO; +MECL-106 PO; +METO10TA3 PO; +ONDA4TAB11 PO; +PANT40TA3 PO; +PROM25TA14 PO; +SUCR1TAB PO
--- NOTE | 2017-07-16 12:08 | Diagnostic Imaging Report ---
INDICATION: Abnormal weight loss The patient was administered a solid test meal with 1.0 mCi Tc 99M sulfur colloid used for labeling of the meal. Region of interest curves were drawn over the stomach with the percent of retained activity calculated at hourly timed intervals for a total of 4 hours. A time activity curve was generated. FINDINGS: Percent retention as follows: (percent of administered activity retained within the stomach): 1.0 hour: 64% <30% = Rapid, >90% = Delayed 2.0 hour: 28% >60% = Abnormally Delayed 3.0 hour: 7% >30% = Abnormally Delayed 4.0 hour: 1% >10% = Abnormally Delayed IMPRESSION: Normal gastric emptying at all timed intervals. Dictated by: Dictated on workstation # [id number]
== END ==
LOC: CARD 06:47
PROVIDERS: ATTEND Family Medicine
DX: R63.4 Abnormal weight loss (principal); R11.2 Nausea with vomiting, unspecified; R10.9 Unspecified abdominal pain
CPT/HCPCS: 78264

== ENCOUNTER 2018-04-16 07:06 | Emergency (ER) | payer BC ==
[~2018-04-16] VITALS: Ht 185.4 cm; Wt 95.3 kg
--- OUTSIDE RECORDS SUMMARY | 2018-04-16 07:10 | XMS REPORT | Clinical Summary ---
Author Author [facility] Organization [facility] Address Unknown Phone Unavailable Care Team Providers Care Grain Merchandising Manager Name Role Phone PCP Unavailable Allergies Not on File Current Medications Not on file Active Problems Not on file Social History Tobacco Use Types Packs/Day Years Used Date Never Assessed Sex Assigned at Date Recorded Not on file Last Filed Vital Signs Not on file Plan of Treatment Health Maintenance Due Date Last Done Comments Td # 1980 Influenza Vaccine (#1) 2018 Results Not on filefrom Last 3 Months
--- OUTSIDE RECORDS SUMMARY | 2018-04-16 07:12 | XMS REPORT | CCD ---
Author Author Alma Azul Organization Alma Azul MD, [facility] Address [address] [place] [address] Phone Care Team Providers Care Community Arts Worker Name Role Phone PP Unavailable CCM Unavailable Summary Purpose Interface Exchange Insurance Providers Payer name Policy type / Coverage type Covered green party ID Effective Begin Date Effective End Date [facility] Notify Technology/[employer] [facility] [id number] Unknown Family history Mother Diagnosis Age At [...] Social History Element Codes Description Effective Dates Employment Unknown Currently employed [employer] 07/23/2017 Number of children Unknown 1 12/26/2012 Marital status Unknown 06/26/2011 Living arrangements Unknown House 06/26/2011 Allergies, Adverse Reactions, Alerts Substance Reaction Codes Entered Date Inactivated Date Status * NO KNOWN ENVIRONMENTAL ALLERGIES Unknown 06/26/2011 No Inactive Date Active * NO KNOWN FOOD ALLERGIES Unknown 06/26/2011 No Inactive Date Active * NO KNOWN DRUG ALLERGIES Unknown 06/26/2011 No Inactive Date Active Past Medical History Illness Codes Condition Status Onset Date Resolved Date Other allergic rhinitis ICD-9: 477.8 ICD-10: J30.89 Active 09/22/2016 Unknown Gastro-esophageal reflux disease without esophagitis ICD-9: 530.81 ICD-10: K21.9 Active 06/11/2017 Unknown Nausea ICD-9: 787.02 ICD-10: R11.0 Active 07/13/2017 Unknown 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 ICD-9 : 714.0 ICD-10: M05.732 Active 04/08/2017 Unknown Abnormal weight loss ICD-9: 783.21 ICD-10: R63.4 Active 05/28/2017 Unknown Other malaise ICD-9: 780.79 ICD-10: R53.81 Active 05/28/2017 Unknown Benign paroxysmal vertigo, bilateral ICD-9: 386.11 ICD-10: H81.13 Active 09/11/2016 Unknown Other fatigue ICD-9: 780.79 ICD-10: R53.83 Active 05/28/2017 Unknown Acute bronchitis due to other specified organisms ICD-9: 466.0 ICD-10: J20.8 Active 09/22/2016 Unknown Pain in right wrist [...] Problems Condition Codes Effective Dates Condition Status Other allergic rhinitis ICD-9: 477.8 ICD-10: J30.89 09/22/2016 Active Gastro-esophageal reflux disease without esophagitis ICD-9: 530.81 ICD-10: K21.9 06/11/2017 Active Nausea ICD-9: 787.02 ICD-10: R11.0 07/13/2017 Active 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 ICD-9 : 714.0 ICD-10: M05.732 04/08/2017 Active Abnormal weight loss ICD-9: 783.21 ICD-10: R63.4 05/28/2017 Active Other malaise ICD-9: 780.79 ICD-10: R53.81 05/28/2017 Active Benign paroxysmal vertigo, bilateral ICD-9: 386.11 ICD-10: H81.13 09/11/2016 Active Other fatigue ICD-9: 780.79 ICD-10: R53.83 05/28/2017 Active Acute bronchitis due to other specified organisms ICD-9: 466.0 ICD-10: J20.8 09/22/2016 Active Pain in right wrist ICD-9: [...] Start Date Stop Date Status Fill Instructions Kenalog 40 mg/mL suspension for injection RxNorm: 7355984 Milliliter(s) Inj 04/08/2018 04/08/2018 Inactive clobetasol 0.05 % topical cream RxNorm: 471091 APPLY TO AFFECTED AREAS 1 Application TOP BID as needed FOR ECZEMA 02/11/2018 08/09/2018 Active dispense large tube please clobetasol 0.05 % topical cream RxNorm: 834191 APPLY TO AFFECTED AREAS TOP NEEDED FOR ECZEMA 09/14/2017 No Stop Date Active clobetasol 0.05 % topical cream RxNorm: 785376 APPLY TO AFFECTED AREAS 1 Application TOP BID as needed FOR ECZEMA 09/14/2017 02/10/2018 Inactive dispense large tube please promethazine 25 mg tablet RxNorm: 104194 1 Tablet(s) PO TID as needed nausea 07/10/2017 07/09/2017 Inactive promethazine 25 mg tablet RxNorm: 344820 1 Tablet(s) PO TID as needed nausea 07/10/2017 07/19/2017 Inactive Zofran ODT 4 mg disintegrating tablet RxNorm: 135126 1 Tablet(s) PO TID as needed 07/07/2017 07/16/2017 Inactive Carafate 1 gram tablet RxNorm: 707186 1 Tablet(s) PO AC & HS 09/19/2017 Inactive Carafate 1 gram tablet RxNorm: 793950 1 Tablet(s) PO AC & HS 06/21/2017 Inactive Prilosec OTC 20 mg tablet,delayed release RxNorm: 384961 1 Tablet(s) PO daily 06/11/2017 07/12/2017 Inactive meclizine 25 mg tablet RxNorm: 225578 1 Tablet(s) PO TID as needed 05/28/2017 06/06/2017 Inactive Zofran ODT 4 mg disintegrating tablet RxNorm: 907498 1 Tablet(s) PO TID as needed 05/28/2017 06/06/2017 Inactive clobetasol 0.05 % topical cream RxNorm: 607737 APPLY TO AFFECTED AREAS TOP as needed FOR ECZEMA 05/06/2017 09/13/2017 Inactive Voltaren 1 % topical gel RxNorm: 111244 1 Application TOP QID as needed 04/08/2017 No Stop Date Active prednisone 10 mg tablet RxNorm: 179013 Tablet(s) PO UD 201605/27/2017 Inactive 6,5,4,3,2,1 Kenalog 40 mg/mL suspension for injection RxNorm: 2187420 Milliliter(s) Inj 04/08/2017 04/08/2017 Inactive Zyrtec 10 mg tablet RxNorm: 6529738 1 Tablet(s) PO daily 09/2210/21/2016 Inactive Kenalog 40 mg/mL suspension for injection RxNorm: 0725978 1 Milliliter(s) Inj 09/22/2016 09/22/2016 Inactive prednisone 20 mg tablet RxNorm: 690586 1 Tablet(s) PO daily 05/27/2017 Inactive clobetasol 0.05 % topical cream RxNorm: 255002 APPLY TO AFFECTED AREAS TOP as needed FOR ECZEMA 06/21/2015 05/05/2017 Inactive prednisone 10 mg tablets in a dose pack RxNorm: 684748 Tablet(s) PO 09/03/2012 09/08/2012 Inactive Diflucan 150 mg tablet RxNorm: 300393 1 Tablet(s) PO daily 09/12/2012 Inactive nystatin-triamcinolone 100,000 unit/gram-0.1 % Ointment RxNorm: 8618775 1 Application TOP BID 12/15/2011 12/14/2011 Inactive nystatin-triamcinolone 100,000 unit/gram-0.1 % Ointment RxNorm: 8091027 1 Application TOP BID 12/15/2011 12/28/2011 Inactive Bactrim DS 800 mg-160 mg tablet RxNorm: 302021 1 Tablet(s) PO BID 12/08/2011 12/17/2011 Inactive prednisone 10 mg tablets in a dose pack RxNorm: 883571 Tablet(s) PO UD 6-5-4-3-2- 1 12/08/2011 12/13/2011 Inactive itraconazole 100 mg Cap RxNorm: 423303 1 Capsule(s) PO 201110/25/2012 Inactive Kenalog 40 mg/mL Susp for Injection RxNorm: 4673927 Milliliter(s) Inj 06/26/2011 06/26/2011 Inactive Kenalog 40 mg/mL Susp for Injection RxNorm: 7033681 2 Milliliter(s) Inj 06/26/2011 06/26/2011 Inactive itraconazole 100 mg Cap RxNorm: 619188 1 Capsule(s) PO No Start Date 10/21/2011 Inactive clobetasol 0.05 % topical cream RxNorm: 897495 APPLY TO AFFECTED AREAS TOP as needed FOR ECZEMA No Start Date 2015 Inactive meloxicam 15 mg tablet RxNorm: 827118 1 Tablet(s) PO daily No Start Date 07/12/2017 Inactive Medication Administered Medication Codes Instructions Start Date Status Kenalog 40 mg/mL suspension for injection RxNorm: 2223063 Milliliter 04/08/2018 Active Kenalog 40 mg/mL suspension for injection RxNorm: 7563670 Milliliter 04/08/2017 No longer Active Kenalog 40 mg/mL suspension for injection RxNorm: 9036283 1Milliliter 09/22/2016 No longer Active Kenalog 40 mg/mL Susp for Injection RxNorm: 6582810 2Milliliter 06/26/2011 No longer Active Immunizations No Immunization data Assessments Condition Codes Effective Dates Other allergic rhinitis ICD-10: J30.89 ICD-9: 477.8 04/08/2018 Nausea ICD-10: R11.0 ICD-9: 787.02 07/23/2017 Gastro-esophageal reflux disease without esophagitis ICD-10 : K21.9 ICD-9: 530.81 07/23/2017 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 ICD-10: M05.732 ICD-9: 714.0 07/23/2017 Abnormal weight loss ICD-10: R63.4 ICD-9: 783.21 07/13/2017 Other malaise ICD-10: R53.81 ICD-9: 780.79 06/11/2017 Other fatigue ICD-10: R53.83 ICD-9: 780.79 05/28/2017 Benign paroxysmal vertigo, bilateral ICD-10: H81.13 ICD-9: 386.11 05/28/2017 Acute bronchitis due to other specified organisms ICD-10: J20.8 ICD-9: 466.0 09/22/2016 Pain in right wrist ICD-10: M25.531 ICD-9: 719.43 06/05/2016 Encounter for general adult medical examination without abnormal findings ICD-10: Z00.00 ICD-9: V70.0 10/24/2015 PREVENTIVE PHYSICAL EXAM ICD-9: V70.0 ACHILLES TENDINITIS ICD-9: 726.71 2012 PRURITIC DISORDER ICD-9: 698.9 2012 Rash ICD-9: 782.1 09/03/2012 ACUTE URI ICD-9: 465.9 12/08/2011 Elevated blood pressure ICD-9: 796.2 Reason For Visit Reason For Visit Effective Dates Notes Hospital Follow Up 07/23/2017 nausea 07/13/2017 nausea 06/11/2017 dizziness 05/28/2017 wrist pain 04/08/2017 [...] Code Item Item Code Result Date Zoila [id number] ZOILA (ZACH) SCREEN DETECTED 06/13/2016 Zoila [id number] ZOILA (IFA) TITER 1:160 06/13/2016 Zoila [id number] ZOILA PATTERN SPECKLED 06/13/2016 Zoila [id number] 06/13/2016 Cbc With Differential Ord2 WBC 3.84 [...] 29.6 pg 06/05/2016 Cbc With Differential Ord2 Thurston% 10.4 % 06/05/2016 Cbc With Differential Ord2 MCHC 34.6 pg 06/05/2016 Cbc With Differential Ord2 Eos% 1.6 % 06/05/2016 Cbc With Differential Ord2 Baso% 0.3 % 06/05/2016 Cbc With Differential Ord2 PLT 218 K/ul 06/05/2016 Cbc With Differential Ord2 RDW 14.9 % 06/05/2016 Cbc With Differential Ord2 Neut ABS# 2.18 K/ul 06/05/2016 Cbc With Differential Ord2 Lymph ABS# 1.19 K/ul 06/05/2016 Cbc With Differential Ord2 [place] ABS# 0.4 K/ul 06/05/2016 Cbc With Differential Ord2 Eos ABS# 0.1 K/ul 06/05/2016 Cbc With Differential Ord2 Baso ABS# 0.0 K/ul 06/05/2016 C-Reactive Protein Qnt Crqnt CRP 0.7 mg/dl 06/05/2016 Sed Rate Ord21 ESR 4 mm/hr 06/05/2016 Ra Factor Kzq762 RA FACTOR 21.4 IU/ml 06/05/2016 Uric Acid Ord77 Uric A 6.2 mg/dL 06/05/2016 Lipid Ord30 CHOL 193 mg/dL 09/26/2015 Lipid Ord30 HDL 38.0 mg/dl 09/26/2015 Lipid Ord30 TRIG 187 mg/dL 09/26/2015 Lipid Ord30 LDL 118 mg/dL 09/26/2015 Lipid Ord30 C/HDL 5.1 Ratio 09/26/2015 Tsh Ord6 hTSH II 1.78 uIU/mL 09/26/2015 Comp Metabolic Uyu314 NA 135 mEq/L 09/26/2015 Comp Metabolic Cvv783 K 4.3 mEq/L 09/26/2015 Comp Metabolic Ocr439 CL 102 mEq/L 09/26/2015 Comp Metabolic Udy498 CO2 30.0 mEq/L 09/26/2015 Comp Metabolic Kbs154 ANION GAP 7 09/26/2015 Comp Metabolic Wya722 GLUCOSE 105 mg/dL 09/26/2015 Comp Metabolic Lxx073 Creat 0.9 mg/dL 09/26/2015 Comp Metabolic Rnb127 eGFR 102 ml/min/1.73m2 09/26/2015 Comp Metabolic Ssr199 BUN 13 mg/dL 09/26/2015 Comp Metabolic Hie196 B/C Ratio 14.4 Ratio 09/26/2015 Comp Metabolic Sht468 CALCIUM 9.1 mg/dL 09/26/2015 Comp Metabolic Ckj961 ALK PHOS 53 U/L 09/26/2015 Comp Metabolic Ikf952 AST(SGOT) 18 U/L 09/26/2015 Comp Metabolic Bpz528 ALT(SGPT) 27 U/L 09/26/2015 Comp Metabolic Njn791 BILI T 0.5 mg/dL 09/26/2015 Comp Metabolic Pwq001 ALBUMIN 4.4 g/dL 09/26/2015 Comp Metabolic Rxy251 TPRO 6.9 g/dL 09/26/2015 Comp Metabolic Qej571 GLOB 2.5 g/dL 09/26/2015 Comp Metabolic Hib998 A/G Ratio 1.7 Ratio 09/26/2015 Comp Metabolic Sif242 Osmo 271 mOsmo 09/26/2015 Cbc With Differential Ord2 WBC 4.48 K/ul 09/26/2015 Cbc With Differential Ord2 RBC 5.41 M/ul 09/26/2015 Cbc With Differential Ord2 HGB 15.7 g/dl 09/26/2015 Cbc With Differential Ord2 HCT 46.7 % 09/26/2015 Cbc With Differential Ord2 Neut% 48.9 % 09/26/2015 Cbc With Differential Ord2 Lymph% 36.6 % 09/26/2015 Cbc With Differential Ord2 MCV 86.3 fl 09/26/2015 Cbc With Differential Ord2 Thur[place]% 11.4 % 09/26/2015 Cbc With Differential Ord2 MCH 29.0 pg 09/26/2015 Cbc With Differential Ord2 MCHC 33.6 pg 09/26/2015 Cbc With Differential Ord2 Eos% 2.9 % 09/26/2015 Cbc With Differential Ord2 PLT 215 K/ul 09/26/2015 Cbc With Differential Ord2 Baso% 0.2 % 09/26/2015 Cbc With Differential Ord2 RDW 15.0 % 09/26/2015 Cbc With Differential Ord2 Neut ABS# 2.19 K/ul 09/26/2015 Cbc With Differential Ord2 Lymph ABS# 1.64 K/ul 09/26/2015 Cbc With Differential Ord2 [place] ABS# 0.5 K/ul 09/26/2015 Cbc With Differential Ord2 Eos ABS# 0.1 K/ul 09/26/2015 Cbc With Differential Ord2 Baso ABS# 0.0 K/ul 09/26/2015 Cbc With Differential Ord2 New Analyzer Notice Please note new ref ranges starting 05-23-2015 due to implemntation of new five part differential hematolgy analyzer. 09/26/2015 Review of Systems System Result Effective Dates Constitutional No recent illness 2017 Constitutional No night sweats 2017 Constitutional No chills 07/23/2017 Constitutional No fatigue 07/23/2017 Constitutional No fever 07/23/2017 Constitutional No insomnia 07/23/2017 Constitutional No malaise 07/23/2017 Eyes No blindness 07/23/2017 Eyes No vision change 07/23/2017 Ears/Nose/Throat/Neck No dental pain Ears/Nose/Throat/Neck No dizziness 2017 Ears/Nose/Throat/Neck No dysphagia 2017 Ears/Nose/Throat/Neck No headache 2017 Ears/Nose/Throat/Neck No hearing loss Ears/Nose/Throat/Neck No nasal allergies 07/23/2017 Ears/Nose/Throat/Neck No sore throat Ears/Nose/Throat/Neck No postnasal drip 07/23/2017 Ears/Nose/Throat/Neck No sinus congestion 07/23/2017 Cardiovascular No chest pain/pressure Cardiovascular No dyspnea 07/23/2017 Cardiovascular No edema 07/23/2017 Cardiovascular No exercise intolerance Cardiovascular No fatigue 07/23/2017 Cardiovascular No hypertension 2017 Cardiovascular No near-syncope/dizziness 07/23/2017 Cardiovascular No palpitations 2017 Respiratory No chest tightness 2017 Respiratory No cigarette smoking 2017 Respiratory No cough 07/23/2017 Respiratory No dyspnea on exertion 2017 Respiratory No dyspnea 07/23/2017 Respiratory No pedal edema 07/23/2017 Gastrointestinal No abdominal pain 2017 Gastrointestinal No constipation 2017 Gastrointestinal No diarrhea 07/23/2017 Gastrointestinal No gastroesophageal reflux 07/23/2017 Gastrointestinal No hematochezia 2017 Gastrointestinal No nausea 07/23/2017 Gastrointestinal No vomiting 07/23/2017 Genitourinary/Nephrology No dysuria 07/23 Genitourinary/Nephrology No impotence Genitourinary/Nephrology No nocturia Genitourinary/Nephrology No urinary urgency 07/23/2017 Genitourinary/Nephrology No urinary frequency 07/23/2017 Genitourinary/Nephrology No urinary incontinence 07/23/2017 Musculoskeletal No stiffness 07/23/2017 Musculoskeletal No swelling 07/23/2017 Musculoskeletal No arthralgia(s) 2017 Musculoskeletal No joint complaint 2017 Musculoskeletal No muscle weakness 2017 Musculoskeletal No myalgias 07/23/2017 Dermatologic No rash 07/23/2017 Dermatologic No sores 07/23/2017 Dermatologic No scar 07/23/2017 Neurologic No ataxia 07/23/2017 Neurologic No dizziness 07/23/2017 Neurologic No dyskinesia or tremor 2017 Neurologic No gait abnormality 2017 Neurologic No headache 07/23/2017 Neurologic No neck pain 07/23/2017 Neurologic No syncope 07/23/2017 Psychiatric No anxiety 07/23/2017 Psychiatric No depression 07/23/2017 Constitutional recent illness 07/13/2017 Constitutional anorexia 07/13/2017 Constitutional No chills 07/13/2017 Constitutional No diaphoresis 07/13/2017 Constitutional fatigue 07/13/2017 Constitutional malaise 07/13/2017 Constitutional weight loss 07/13/2017 Eyes No blindness 07/13/2017 Ears/Nose/Throat/Neck No dizziness 2017 Ears/Nose/Throat/Neck No nasal allergies 07/13/2017 Ears/Nose/Throat/Neck No nasal discharge 07/13/2017 Cardiovascular No chest pain/pressure 09/2017 Cardiovascular No dyspnea 07/13/2017 Respiratory No chest congestion 2017 Respiratory No cough 07/13/2017 Gastrointestinal No abdominal pain 2017 Gastrointestinal anorexia 07/13/2017 Gastrointestinal No constipation 2017 Gastrointestinal No diarrhea 07/13/2017 Gastrointestinal No gastroesophageal reflux 07/13/2017 Gastrointestinal No hematochezia 2017 Gastrointestinal No melena 07/13/2017 Gastrointestinal nausea 07/13/2017 Gastrointestinal vomiting 07/13/2017 Musculoskeletal arthralgia(s) 07/13/2017 Dermatologic No rash 07/13/2017 Neurologic No alteration of consciousness 07/13/2017 Neurologic No mental status change 2017 Constitutional No recent illness 2017 Constitutional anorexia [...] 1994 Constitutional general appearance Overall: well developed 07/23/2017 None Full Exam - General 1994 Constitutional general appearance Overall: in no acute distress 07/23/2017 None Full Exam - General 1994 Constitutional general appearance Overall: well nourished 07/23/2017 None Full Exam - General 1994 Eyes conjunctiva /eyelids Overall: conjunctiva clear 07/23/2017 None Full Exam - General 1994 Eyes conjunctiva /eyelids Overall: cornea clear 07/23/2017 None Full Exam - General 1994 Eyes conjunctiva /eyelids Overall: eyelids normal 07/23/2017 None Full Exam - General 1994 Ears/Nose/Throat lips/teeth/gingiva Overall: benign lips 07/23/2017 None Full Exam - General 1994 Ears/Nose/Throat oral cavity/pharynx/larynx Overall: oral mucosa clear 07/23/2017 None Full Exam - General 1994 Respiratory auscultation Overall: breath sounds clear bilaterally 07/23/2017 None Full Exam - General 1994 Respiratory respiratory effort/rhythm Overall: no retractions 07/23/2017 None Full Exam - General 1994 Respiratory respiratory effort/rhythm Overall: normal rate 07/23/2017 None Full Exam - General 1994 Cardiovascular auscultation of heart Overall: regular rate 07/23/2017 None Full Exam - General 1994 Cardiovascular auscultation of heart Overall: normal heart sounds 07/23/2017 None Full Exam - General 1994 Abdomen abdominal exam Overall: no tenderness 07/23/2017 None Full Exam - General 1994 Abdomen abdominal exam Overall: normal bowel sounds 07/23/2017 None Full Exam - General 1994 Musculoskeletal gait and station Overall: normal gait 07/23/2017 None Full Exam - General 1994 Musculoskeletal gait and station Overall: normal station 07/23/2017 None Full Exam - General 1994 Musculoskeletal head and neck Overall: head atraumatic 07/23/2017 None Full Exam - General 1994 Neurologic cranial nerves Overall: crainial nerves 2 - 12 grossly intact 07/23/2017 None Full Exam - General 1994 Psychiatric orientation/consciousness Overall: oriented to person, place and time 07/23/2017 None Full Exam - General 1994 Psychiatric mood and affect Overall: normal mood and affect 07/23/2017 None Full Exam - General 1994 Psychiatric appearance Overall: well-groomed, good eye contact 07/23/2017 None Full Exam - General 1994 Constitutional general appearance Overall: well developed 07/13/2017 None Full Exam - General 1994 Constitutional general appearance Overall: in no acute distress 07/13/2017 None Full Exam - General 1994 Constitutional general appearance Overall: well nourished 07/13/2017 None Full Exam - General 1994 Eyes conjunctiva /eyelids Overall: conjunctiva clear 07/13/2017 None Full Exam - General 1994 Eyes conjunctiva /eyelids Overall: cornea clear 07/13/2017 None Full Exam - General 1994 Eyes conjunctiva /eyelids Overall: eyelids normal 07/13/2017 None Full Exam - General 1994 Ears/Nose/Throat lips/teeth/gingiva Overall: benign lips 07/13/2017 None Full Exam - General 1994 Ears/Nose/Throat oral cavity/pharynx/larynx Overall: oral mucosa clear 07/13/2017 None Full Exam - General 1994 Respiratory auscultation Overall: breath sounds clear bilaterally 07/13/2017 None Full Exam - General 1994 Respiratory respiratory effort/rhythm Overall: no retractions 07/13/2017 None Full Exam - General 1994 Respiratory respiratory effort/rhythm Overall: normal rate 07/13/2017 None Full Exam - General 1994 Cardiovascular auscultation of heart Overall: regular rate 07/13/2017 None Full Exam - General 1994 Cardiovascular auscultation of heart Overall: normal heart sounds 07/13/2017 None Full Exam - General 1994 Abdomen abdominal exam Overall: no tenderness 07/13/2017 None Full Exam - General 1994 Abdomen abdominal exam Overall: normal bowel sounds 07/13/2017 None Full Exam - General 1994 Musculoskeletal gait and station Overall: normal gait 07/13/2017 None Full Exam - General 1994 Musculoskeletal gait and station Overall: normal station 07/13/2017 None Full Exam - General 1994 Musculoskeletal head and neck Overall: head atraumatic 07/13/2017 None Full Exam - General 1994 Neurologic cranial nerves Overall: crainial nerves 2 - 12 grossly intact 07/13/2017 None Full Exam - General 1994 Psychiatric orientation/consciousness Overall: oriented to person, place and time 07/13/2017 None Full Exam - General 1994 Psychiatric mood and affect Overall: normal mood and affect 07/13/2017 None Full Exam - General 1994 Psychiatric appearance Overall: well-groomed, good eye contact 07/13/2017 None Full Exam - General 1994 Constitutional [...] happy 12/08/2011 None Full Exam - General 1995 [...] erythema 07/29/2011 None Full Exam - General 1995 [...] distress 06/26/2011 None Procedures Procedure Codes Date THER/PROPH/DIAG INJ SC/IM CPT-4: 38991 04/08/2018 TRIAMCINOLONE ACET INJ NOS CPT-4: J3301 04/08/2018 TRIAMCINOLONE ACET INJ NOS CPT-4: J3301 04/08/2017 TRIAMCINOLONE ACET INJ NOS CPT-4: J3301 09/22/2016 ROCEPHIN, PER 250 MG CPT-4: J0696 12/08/2011 KETOROLAC TROMETHAMINE INJ CPT-4: J1885 12/08/2011 THER/PROPH/DIAG INJ SC/IM CPT-4: 95467 12/08/2011 TRIAMCINOLONE ACET INJ NOS CPT-4: J3301 06/26/2011 THER/PROPH/DIAG INJ SC/IM CPT-4: 25882 06/26/2011 Vital Signs Date Vital 07/23/2017 Blood Pressure 1: 124/84 Code : 8480-6 BMI: 26.3 Code : 56939-4 Heart Rate 1 : 85 bpm Height: 6'2" SpO2: 98% Weight: 208 lbs 07/13/2017 Blood Pressure 1: 138/86 Code : 8480-6 BMI: 26.1 Code : 89762-5 Heart Rate 1 : 74 bpm Height: 6'2" SpO2: 99% Weight: 206 lbs 06/11/2017 Blood Pressure 1: 122/80 Code : 8480-6 BMI: 26.6 Code : 30694-3 Heart Rate 1 : 76 bpm Height: 6'2" SpO2: 96% Weight: 210 lbs 05/28/2017 Blood Pressure 1: 130/70 Code : 8480-6 BMI: 26.9 Code : 05844-6 Heart Rate 1 : 83 bpm Height: 6'2" SpO2: 98% Weight: 212 lbs 04/08/2017 Blood Pressure 1: 122/74 Code : 8480-6 BMI: 28.1 Code : 83819-0 Heart Rate 1 : 88 bpm Height: 6'2" SpO2: 99% Weight: 222 lbs 09/22/2016 Blood Pressure 1: 128/80 Code : 8480-6 BMI: 29.4 Code : 07952-2 Heart Rate 1 : 92 bpm Height: 6'2" SpO2: 98% Temperature: 36.6 (C) / 97.8 (F) Weight: 232 lbs 09/11/2016 Blood Pressure 1: 124/78 Code : 8480-6 BMI: 29.4 Code : 99922-3 Heart Rate 1 : 78 bpm Height: 6'2" SpO2: 96% Weight: 232 lbs 06/05/2016 Blood Pressure 1: 128/82 Code : 8480-6 BMI: 31.0 Code : 17516-5 Heart Rate 1 : 80 bpm Height: 6'2" SpO2: 98% Weight: 245 lbs 10/24/2015 Blood Pressure 1: 126/74 Code : 8480-6 BMI: 29.9 Code : 07097-7 Heart Rate 1 : 71 bpm Height: 6'2" SpO2: 98% Weight: 236 lbs 10/25/2014 Blood Pressure 1: 102/74 Code : 8480-6 BMI: 30.4 Code : 72198-2 Heart Rate 1 : 76 bpm Height: 6'2" Weight: 240 lbs 10/26/2012 Blood Pressure 1: 122/82 Code : 8480-6 BMI: 32.8 Code : 76583-7 Heart Rate 1 : 72 bpm Height: 6' Respiratory Rate: 16 bpm Weight: 245 lbs 09/03/2012 Blood Pressure 1: 126/74 Code : 8480-6 BMI: 31.6 Code : 49774-6 Heart Rate 1 : 80 bpm Height: 6'2" Weight: 246 lbs 12/08/2011 Blood Pressure 1: 126/74 Code : 8480-6 Heart Rate 1: 72 bpm Respiratory Rate : 16 bpm Temperature: 36.8 (C) / 98.3 (F) Weight: 240 lbs 07/29/2011 Blood Pressure 1: 130/80 Code : 8480-6 BMI: 30.1 Code : 13843-9 Heart Rate 1 : 62 bpm Height: 6'2" Weight: 237 lbs 8 oz 06/26/2011 Blood Pressure 1: 140/72 Code : 8480-6 BMI: 32.1 Code : 62664-1 Heart Rate 1 : 68 bpm Height: 6' Respiratory Rate: 16 bpm Weight: 237 lbs Functional Status No Functional Status data History of Present Illness Symptom Name Status Result Effective Date Notes Hospital Follow Up _ Other: persistent nausea 07/23/2017 None Hospital Follow Up Quality acute 07/23/2017 None Hospital Follow Up Quality improving 07/23/2017 None Hospital Follow Up _ gastrointestinal complaints 07/23/2017 None Hospital Follow Up Onset of Symptom 8 weeks ago 07/23/2017 None Hospital Follow Up Onset and Resolution resolved 07/23/2017 None Hospital Follow Up Severity severe 07/23/2017 None Hospital Follow Up Alleviating Factors activity 07/23/2017 stopping all medications Hospital Follow Up Exacerbating Factors medication 07/23/2017 RA [email or web address]-plaquenil Hospital Follow Up Unchanged by these Factors eating 07/23/2017 None weight loss Quality worsening 07/13/2017 None weight loss Onset and Resolution gradual in onset 07/13/2017 None weight loss Onset and Resolution ongoing 07/13/2017 None weight loss Onset of Symptom months ago 07/13/2017 None weight loss Weight Status has lost greater than ten pounds total 07/13/2017 None weight loss Diet decreased intake 07/13/2017 None weight loss Triggers change in diet 07/13/2017 None weight loss Triggers unintentional weight loss 07/13/2017 None weight loss Pertinent Findings nausea 07/13/2017 None weight loss Pertinent Findings vomiting 07/13/2017 None weight loss Pertinent Findings depressed mood 07/13/2017 None depression Quality acute 07/13/2017 None depression Onset and Resolution ongoing 07/13/2017 None depression Triggers stress 07/13/2017 None depression Pertinent Findings depressed mood 07/13/2017 None depression Pertinent Findings lethargy 07/13/2017 None depression Pertinent Findings feeding difficulties 07/13/2017 None nausea Onset and Resolution ongoing 07/13/2017 None nausea Onset of Symptom months ago 07/13/2017 None nausea Quality worsening 07/13/2017 None nausea Quality constant 07/13/2017 None nausea Pertinent Findings weight loss 07/13/2017 None nausea Pertinent Findings lethargy 07/13/2017 None nausea Triggers no known associated factors 07/13/2017 None nausea Frequency of Episodes daily 07/13/2017 None nausea Frequency of Episodes unchanged 06/11/2017 None [...] data Encounters Encounter Performer Location Codes Date ( 01504 EST. PATIENT, LEVEL III Diagnosis: Gastro-esophageal reflux disease without esophagitis[ICD10: K21.9] Diagnosis: Nausea[ICD10: R11.0] Diagnosis: 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[ICD10: M05.732] Lee Ann Azul MD, [facility] CPT-4: 42035 07/23/2017 ([id number]) Patient admitted to the hospital from clinic (NO CHARGE) Diagnosis: Gastro-esophageal reflux disease without esophagitis[ICD10: K21.9] Diagnosis: Abnormal weight loss[ICD10: R63.4] Diagnosis: Nausea[ICD10: R11.0] Amla Azul MD, [facility] CPT-4: 11418H 07/13/2017 [id number] EST. PATIENT, LEVEL III Diagnosis: Gastro-esophageal reflux disease without esophagitis[ICD10: K21.9] Diagnosis: Abnormal weight loss[ICD10: R63.4] Diagnosis: Other malaise[ICD10: R53.81] Misty Azul MD, [facility] CPT-4 : 76984 06/11/2017 45133 EST. PATIENT, LEVEL IV Diagnosis: Abnormal weight loss[ICD10: R63.4] Diagnosis: Benign paroxysmal vertigo, bilateral[ICD10: H81.13] Diagnosis: 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[ICD10: M05.732] Diagnosis: Other malaise[ICD10: R53.81] Diagnosis: Other fatigue[ICD10: R53.83] Misty Azul MD, [facility] CPT-4 : 60225 05/28/2017 47122 EST. PATIENT, LEVEL III Diagnosis: 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[ICD10: M05.732] Misty Azul MD, [facility] CPT -4: 58797 04/08/2017 19364 EST. PATIENT, LEVEL IV Diagnosis: Acute bronchitis due to other specified organisms[ICD10: J20.8] Diagnosis: Other allergic rhinitis[ICD10: J30.89] Misty Azul MD, [facility] CPT-4: 19813 09/22/2016 ([id number]) 43575 EST. PATIENT, LEVEL III Diagnosis: Benign paroxysmal vertigo, bilateral[ICD10: H81.13] Lee Ann Azul MD, [facility] CPT-4: 44424 09/11/2016 50576 EST. PATIENT, LEVEL III Diagnosis: Pain in right wrist[ICD10: M25.531] Misty Azul MD, [facility] CPT-4: 56134 06/05/2016 ([id number]) PREV VISIT EST AGE 18-39 Diagnosis: Encounter for general adult medical examination without abnormal findings[ICD10: Z00.00] Alma Azul MD, [facility] CPT-4: 20615 10/24/2015 ([id number]) PREV VISIT EST AGE 18-39 Diagnosis: PREVENTIVE PHYSICAL EXAM[ICD9: V70.0] Alma Azul MD, [facility] CPT-4: 42131 10/25/2014 ([id number]) 17045 EST. PATIENT, LEVEL III Diagnosis: ACHILLES TENDINITIS[ICD9: 726.71] Alma Azul MD, [facility] CPT-4: 14026 10/26/2012 ([id number]) 58938 EST. PATIENT, LEVEL III Diagnosis: Rash[ICD9: 782.1] Diagnosis: PRURITIC DISORDER[ICD9: 698.9] Lee Ann Azul MD, [facility] CPT-4: 52628 09/03/2012 ([id number]) 73796 EST. PATIENT, LEVEL III Diagnosis: ACUTE URI[ICD9: 465.9] Diagnosis: Rash[ICD9: 782.1] Lee Ann Azul MD, [facility] CPT-4: 20201 12/08/2011 ([id number]) 39819 EST. PATIENT, LEVEL III Diagnosis: PRURITIC DISORDER[ICD9: 698.9] Diagnosis: NONSPECIF SKIN ERUPT NEC[ICD9: 782.1] Alma Azul MD, [facility] CPT-4: 27241 07/29/2011 08505 EST. PATIENT, LEVEL IV Diagnosis: Rash[ICD9: 782.1] Diagnosis: Localized pruritus[ICD9: 698.9] Diagnosis: Elevated blood pressure[ICD9: 796.2] [facility] CPT-4: 31475 06/26/2011 Plan of Care Planned Activity Notes Codes Status Date Patient Education: Patient Medication Summary Completed 04/08/2018 Visit Plan: [id number]-[id number] have completely resolved since stopping RA medications -patient to stay off medications and call if symptoms return RA-patient has appt with track hoe operator in -patient to call to get on waiting list to see if they can see him sooner -currently asymptomatic -monitor symptoms and call with any concerns 07/23/2017 Appointment: Lee Ann Tejada WPtel: [phone] [phone] [place] (15 min) Moderate 07/23/2017 Patient Education: Patient Medication Summary Completed 07/23/2017 Visit Plan: Admit to hospital under observation for iv fluids, HIDA scan and planned EGD tomorrow. 07/13/2017 Appointment: Alma Azul WPtel: [phone] [facility] [place] (15 min) Moderate 07/13/2017 Patient Education: Patient Medication Summary Completed 07/13/2017 Visit Plan: Malaise, weight loss - labs [...] not improving. 06/11/2017 Appointment: Misty Zarate WPtel: [facility] [place] (30 min) Complex 06/11/2017 Patient Education: Patient [...] indicated. 05/28/2017 Appointment: Misty Zarate WPtel: [phone] [facility] (15 min) Moderate 05/28/2017 Patient Education: Patient Medication Summary Completed 05/28/2017 Visit Plan: RA - acute flare - will send RX - pt has an appointment with a new track hoe operator in May. Pt is to notify clinic if symptoms do not improve, if they worsen, or with any acute changes, questions, or concerns. 04/08/2017 Visit Plan: RA - acute flare - will send RX - pt has an appointment with a new track hoe operator in May. Pt is to notify clinic if symptoms do not improve, if they worsen, or with any acute changes, questions, or concerns. 04/08/2017 Appointment: Misty Zarate WPtel: [phone] [phone] (30 min) Complex 04/08/2017 Patient Education: Patient [...] allergy spray. 09/22/2016 Appointment: Misty Zarate WPtel: [facility]5 [facility] (15 min) Moderate 09/22/2016 Patient Education: Patient [...] interventions. 09/11/2016 Appointment: Lee Ann Tejada WPtel: [facility]1 [address] (30 min) Complex 09/11/2016 Patient Education: Patient [...] check labs 06/05/2016 Appointment: Misty Zarate WPtel: [facility] (10 min) Simple 06/05/2016 Patient Education: Patient [...] renal functioning. 10/24/2015 Appointment: Alma Azul WPtel: [facility] (15 min) Moderate 10/24/2015 Patient Education: [...] renal functioning. 10/25/2014 Appointment: Alma Azul WPtel: [address] [place], [place] [phone] (15 min) Moderate 10/25/2014 Patient Education: Patient Medication Summary Completed 10/25/2014 Visit Plan: Achilles tendonitis - uncontrolled symptoms- recommend pt to take antiinflammatory as directed for pain control. Use tylenol for break through pain symptoms. 10/26/2012 Appointment: Alma Azul WPtel: [address] [place] [address] Follow up 10/26/2012 Patient Education: Patient Medication [...] understanding. 09/03/2012 Appointment: Lee Ann Tejada WPtel: [address] [place] [address] Other 09/03/2012 Patient Education: Patient Medication Summary [...] office. 12/08/2011 Appointment: Lee Ann Tejada WPtel: [facility] [place] [phone] Other 12/08/2011 Patient Education: Patient Medication Summary Completed 12/08/2011 Visit Plan: Rash - Itching - uncertain eitiology - but with his response to the steroid and antifungal and the diffuse look of a folliculitis - I will treat Noah with a different antifungal and steroid and follow his progress. itraconazole 100 mg x 20 days prednisone taper 07/29/2011 Appointment: Alma Azul WPtel: [phone] [phone] Other 07/29/2011 Patient Education: Patient Medication [...] one week. 06/26/2011 Appointment: Alma Azul WPtel: [phone] [facility] Other 06/26/2011 Patient Education: Patient Medication [...] pt has an appointment with a new track hoe operator in May. Pt is to notify clinic if symptoms do not improve, if they worsen, or with any acute changes, questions, or concerns. . RA - acute flare - will send RX - pt has an appointment with a new track hoe operator in May. Pt is to notify [...] check labs and treat as indicated. . Admit to hospital under observation for iv fluids, HIDA scan and planned EGD tomorrow. . Well Adult - pt was counseled about diet, exercise, and encouraged to follow a heart healthy diet and increase activity level. The patient was instructed to RTC yearly for well adult exams and PRN for acute illnesses. The pt was also instructed to have yearly labs for check of cholesterol, thyroid, chem panel, CBC, and renal functioning. . JPZX-Fknzmu-rffdmmek have completely resolved since stopping RA medications -patient to stay off medications and call if symptoms return RA-patient has appt with track hoe operator in -patient to call to get on waiting list to see if they can see him sooner -currently asymptomatic -monitor symptoms and call with any concerns . BPPV - Benign Paroxysmal Positional Vertigo [...] x-ray - if needed will change antibiotics. [facility] allergy medicine - I will send as [...] x-ray - if needed will change antibiotics. [facility] allergy medicine - I will send as [...]
[2018-04-16] MEDS ORDERED: LIDOCAINE 1% INJ 20 ML 20 ML VIAL INJ ONE (07:30)
[2018-04-16] MEDS ORDERED: BUPIVACAINE 0.5% 30 ML (SENSORCAINE) VIAL INJ ONE (07:30)
[2018-04-16] MEDS ORDERED: methylPREDNISolone 40 MG/ML (DEPO MEDROL) VIAL IA ONE (07:30)
--- NOTE | 2018-04-16 07:37 | ED Upper Extremity ---
General Chief Complaint: Upper Extremity Stated Complaint: R SHOULDER PAIN Source: patient Exam Limitations: no limitations History of Present Illness Date Seen by Provider: Apr 16, 2018 Time Seen by Provider: 07:17 Initial Comments Patient presents to ER by private conveyance with chief complaint that he is having some right shoulder pain on movement. He is currently in the middle of rash at his job working many hours and this pain started yesterday. He has a history of rheumatoid arthritis. Last week he had some pain in his left shoulder and was received a IM shot of steroids from his primary care provider. 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 He's having no fevers chills redness swelling or heat in his right shoulder but he does have some swelling in his right hand. He is not using NSAIDs. He did have some leftover Medrol Dosepak and took 2 tablets this morning. Allergies and Home Medications Allergies Coded Allergies: No Known Drug Allergies (Unverified , 07/13/17) Patient Home Medication List Home Medication List Reviewed: Yes Review of Systems Constitutional: No chills, No diaphoresis EENTM: No ear discharge, No ear pain Respiratory: No cough, No short of breath Cardiovascular: No chest pain, No edema Gastrointestinal: No abdominal pain, No constipation, No diarrhea, No nausea Genitourinary: No discharge, No dysuria Musculoskeletal: No back pain, No joint pain Past Jnfnnul-Aowskz-Egnjwv Hx Patient Social History Alcohol Use: Rarely Uses Recreational Drug Use: Yes Drug of Choice: THC Smoking Status: Current Everyday Smoker Type Used: Cigarettes Former Smoker, Quit: Jun 15, 2017 Recent Foreign Travel: No Contact w/Someone Who Travel: No Recent Hopitalizations: No Physical Abuse: No Sexual Abuse: No Seasonal Allergies Seasonal Allergies: No Past Medical History Surgeries: Yes (HERNIA BABY) Respiratory: No Cardiac: No Neurological: No Sexually Transmitted Disease: No HIV/AIDS: No Genitourinary: No Gastrointestinal: Yes Gastroesophageal Reflux, Chronic Diarrhea Musculoskeletal: Yes Rheumatoid Arthritis Endocrine: No HEENT: No Loss of Vision: Bilateral Cancer: No Psychosocial: Yes Depression Integumentary: Yes Eczema Blood Disorders: No Adverse Reaction/Blood Tranf: No Family Medical History No Pertinent Family Hx Physical Exam Vital Signs Vital Signs - First Documented 04/16/18 07:15 Temp 97.5 Pulse 85 Resp 18 B/P (MAP) 137/97 (110) Pulse Ox 95 Capillary Refill : Height, Weight, BMI Height: 6'1.00" Weight: 206lbs. 7.0oz. 93.113033zw; 27.2 BMI Method:Estimated General Appearance: WD/WN, no apparent distress Neck: non-tender, full range of motion Cardiovascular: normal peripheral pulses, regular rate, rhythm, no edema Respiratory: no respiratory distress, no accessory muscle use Gastrointestinal: non tender, soft Shoulder: normal inspection, no evidence of injury, limited ROM (secondary to pain), pain, soft tissue tenderness Elbow/Forearm: normal inspection, non-tender, no evidence of injury, normal ROM , Right Hand: normal inspection, non-tender, no evidence of injury, normal ROM, Right Procedures/Interventions Progress Right shoulder injection with 40 mg Depo-Medrol, 1 cc of 1% lidocaine and 1 cc of half percent Marcaine without epinephrine. Shoulder was positioned in the usual fashion and cleaned with Betadine and allowed to set for 2 minutes and then cleaned thoroughly with alcohol. The landmarks were found using sterile technique and then a 25-gauge 1-1/2 inch needle was used to access the right glenohumeral capsule. Aspiration yielded no fluid. The joint was then injected with total of 3 cc as listed above. Patient tolerated procedure well. Band-Aid was placed after the skin was re-cleaned with alcohol. Progress/Results/Core Measures Results/Orders My Orders Orders - JOSHUA MARQUEZ Methylprednisolone Acetate Inj (Depo-Med (04/16/18 07:30) Lidocaine 1% Inj 20 Ml (Xylocaine 1% Inj (04/16/18 07:30) Bupivacaine 0.5% Injection (Sensorcaine (04/16/18 07:30) Ketorolac Injection (Toradol Injection) (04/16/18 07:40) Medications Given in ED Current Medications Medications Dose Ordered Sig/Jaquan Route Start Time Stop Time Status Last Admin Dose Admin Bupivacaine HCl 30 ml ONCE ONCE INJ 04/16/18 07:30 04/16/18 07:31 DC 04/16/18 07:45 30 ML Ketorolac Tromethamine 30 mg STK-MED ONCE .ROUTE 04/16/18 07:40 04/16/18 07:42 DC 04/16/18 07:44 30 MG Lidocaine HCl 20 ml ONCE ONCE INJ 04/16/18 07:30 12/7/18 07:31 DC 04/16/18 07:45 20 ML Methylprednisolone Acetate 40 mg ONCE ONCE IA 04/16/18 07:30 04/16/18 07:31 DC 04/16/18 07:45 40 MG Vital Signs/I&O 04/16/18 07:15 Temp 97.5 Pulse 85 Resp 18 B/P (MAP) 137/97 (110) Pulse Ox 95 Progress Progress Note : Time: 07:36 Progress Note Toradol 30 mg IM. We discussed risks benefits and alternatives to doing an intra -articular injection of his right shoulder with steroids, lidocaine and Marcaine. The plan is to use a smaller dose and sent home with prednisone as necessary. Follow-up with primary care and seek rheumatologic consultation. Departure Impression Primary Impression: Rheumatoid arthritis flare Additional Impression: Right shoulder pain Qualified Codes: M25.511 - Pain in right shoulder Disposition: 01 HOME, SELF-CARE Condition: Stable Departure-Patient Inst. Decision time for Depature: 07:52 Referrals: HAROON WILKERSON MD (PCP/Family) Primary Care Physician Patient Instructions: Active Range of Motion Exercises, Neck and Shoulders Add. Discharge Instructions: Get some sleep today started some Naprosyn this afternoon 2 tablets twice a day as needed for pain. You can also use Tylenol 1000 mg every 8 hours as needed for pain. Muscle rubs such as icy hot as well as heat applications or useful over the shoulder joint. If you're not seeing improvement in 1-2 days then you may start taking the prednisone 2 tablets daily for the next 5 days. Plan follow -up with primary care and discuss referral to rheumatology. All discharge instructions reviewed with patient and/or family. Voiced understanding. Scripts Prednisone (Prednisone) 20 Mg Tab 40 MG PO DAILY for 5 Days, #10 TAB 0 Refills Prov: JOSHUA MARQUEZ 04/16/18 Work/School Note: Work Release Form Date Seen in the Emergency Department: Apr 16, 2018 Return to Work: Apr 17, 2018 Restrictions: No Restrictions JOSHUA MARQUEZ Apr 16, 2018 07:37
[2018-04-16] MEDS ORDERED: KETOROLAC 30 MG/ML VIAL ONE (07:40)
[2018-04-16] MEDS ORDERED: PRD20T PO (07:54)
[2018-04-16 08:11] VITALS: BP 137/97
== END 2018-04-16 08:11 | disposition home or self-care (01) ==
LOC: ER 07:06 → EDUNIT# 07:06 → ER 08:11
DX: M06.9 Rheumatoid arthritis, unspecified (principal); M25.511 Pain in right shoulder; F12.10 Cannabis abuse, uncomplicated; K21.9 Gastro-esophageal reflux disease without esophagitis; F32.9 Major depressive disorder, single episode, unspecified; Z87.19 Personal history of other diseases of the digestive system; Z87.891 Personal history of nicotine dependence
CPT/HCPCS: 96372; 99284

== ENCOUNTER 2019-04-14 04:23 | Emergency (ER) | payer BC ==
[~2019-04-14] VITALS: Ht 185 cm; Wt 106.0 kg
[~2019-04-14 04:23] MED LIST changes: +PRD20T PO
[2019-04-14] MEDS ORDERED: methylPREDNISolone 40 MG/ML (DEPO MEDROL) VIAL IM ONE (05:00)
[2019-04-14] MEDS ORDERED: PRD20T PO (05:01)
--- NOTE | 2019-04-14 05:01 | ED Upper Extremity ---
General Chief Complaint: Upper Extremity Stated Complaint: LEFT SHOULDER PAIN Nursing Triage Note: Pt ambulates to RM 10 with c/o left shoulder pain since last night. Pt states he has Hx of RA and is having a flare up that is uncontrolled with meds. Nursing Sepsis Screen: No Definite Risk Source: patient Exam Limitations: no limitations History of Present Illness Date Seen by Provider: Apr 14, 2019 Time Seen by Provider: 04:42 Initial Comments Patient presents to ER by private conveyance with chief complaint of rheumatoid flare his left shoulder. He has decreased range of motion pain. Just saw his cash applications associate yesterday and at that time it was a dull ache but then last night he continued to get worse. Previously he had thought maybe it was because he went ice skating and was carrying his daughter around so he did not think anything of it when he was at her cash applications associate's office. He had a couple tablets of prednisone laying around the house so he took those that did not touch the pain. He cannot tolerate NSAIDs since he was hospitalized for NSAIDs. He is on methotrexate. He's having no fevers chills nausea vomiting sweats cough or shortness of breath. Allergies and Home Medications Allergies Coded Allergies: No Known Drug Allergies (Unverified , 07/13/17) Home Medications Prednisone 20 Mg Tab, 40 MG PO DAILY Prescribed by: JOSHUA MARQUEZ on 04/16/18 0754 Patient Home Medication List Home Medication List Reviewed: Yes Review of Systems Constitutional: No chills, No diaphoresis EENTM: No ear discharge, No ear pain Respiratory: No cough, No hemoptysis Cardiovascular: No chest pain, No palpitations Gastrointestinal: No abdominal pain, No constipation Genitourinary: No discharge, No dysuria Musculoskeletal: No back pain; joint pain; No joint swelling Skin: No change in color, No dryness All Other Systems Reviewed Negative Unless Noted: Yes Past Jqbswhj-Gykfgb-Wkqwjs Hx Patient Social History Alcohol Use: Denies Use Recreational Drug Use: Yes Drug of Choice: THC Smoking Status: Current Everyday Smoker Type Used: Cigarettes Former Smoker, Quit: Jun 15, 2017 Recent Foreign Travel: No Contact w/Someone Who Travel: No Recent Infectious Disease Expo: No Recent Hopitalizations: No Physical Abuse: No Sexual Abuse: No Mistreated: No Fear: No Seasonal Allergies Seasonal Allergies: No Past Medical History Surgeries: Yes (HERNIA BABY) Respiratory: No Cardiac: No Neurological: No Sexually Transmitted Disease: No HIV/AIDS: No Genitourinary: No Gastrointestinal: Yes Gastroesophageal Reflux, Chronic Diarrhea Musculoskeletal: Yes Rheumatoid Arthritis Endocrine: No HEENT: No Loss of Vision: Bilateral Cancer: No Psychosocial: Yes Depression Integumentary: Yes Eczema Blood Disorders: No Adverse Reaction/Blood Tranf: No Family Medical History No Pertinent Family Hx Physical Exam Vital Signs Vital Signs - First Documented 04/14/19 04:35 Temp 36.8 Pulse 87 Resp 22 B/P (MAP) 147/104 (118) Pulse Ox 99 O2 Delivery Room Air Capillary Refill : Less Than 3 Seconds Height, Weight, BMI Height: 6'1.00" Weight: 210lbs. 7.0oz. 95.545704va; 30.00 BMI Method:Stated General Appearance: WD/WN, mild distress HEENT: PERRL/EOMI, pharynx normal Neck: full range of motion, normal inspection Cardiovascular: normal peripheral pulses, regular rate, rhythm Respiratory: no respiratory distress, no accessory muscle use Shoulder: normal inspection, bone tenderness (anterior glenohumeral joint), limited ROM (left side); No swelling (negative for redness, swelling or pain in the soft tissues) Elbow/Forearm: normal inspection, non-tender, no evidence of injury, normal ROM, Left Wrist: Yes normal inspection, Yes non-tender, Yes no evidence of injury, Yes normal ROM Progress/Results/Core Measures Results/Orders My Orders Orders - JOSHUA MARQUEZ Methylprednisolone Acetate Inj (Depo-Med (04/14/19 05:00) Vital Signs/I&O 04/14/19 04:35 Temp 36.8 Pulse 87 Resp 22 B/P (MAP) 147/104 (118) Pulse Ox 99 O2 Delivery Room Air Blood Pressure Mean: 118 POS Progress Progress Note : Time: 04:58 Progress Note His story is consistent with a rheumatoid arthritis flare. Plan to give him a shot of 40 mg Depo-Medrol. He has declined intra-articular injections. Plan to put him on some prednisone for the next 5 days follow-up with Dr. Azul as necessary early next week. Departure Impression Primary Impression: Rheumatoid arthritis flare Additional Impression: Left anterior shoulder pain Disposition: 01 HOME, SELF-CARE Condition: Stable Departure-Patient Inst. Decision time for Depature: 04:59 Referrals: HAROON AZUL MD (PCP/Family) Primary Care Physician Patient Instructions: Rheumatoid Arthritis (DC), Shoulder Pain (DC) Add. Discharge Instructions: Heat, ice, topical creams such as icy hot, Biofreeze, Aspercreme etc. Prednisone 2 tablets twice daily for the next 3 days and then one tablet twice daily for 2 days. Follow-up with primary care if not seeing improvement early next week. Tylenol 1000 mg every 8 hours as necessary for pain. All discharge instructions reviewed with patient and/or family. Voiced understanding. Scripts Prednisone (Prednisone) 20 Mg Tab 40 MG PO BID for 5 Days, #16 TAB 0 Refills 2 tablets twice daily for 3 days One tablet twice daily for 2 days Prov: JOSHUA MARQUEZ 04/14/19 Work/School Note: Work Release Form Date Seen in the Emergency Department: D 2018 Return to Work: Apr 20, 2019 Restrictions: Need Release from Doctor Other Restrictions Listed Below: No lift, push, pull more than 10 pounds with left arm until 04/21/19. JOSHUA MARQUEZ Apr 14, 2019 05:01 POS
[2019-04-14 05:06] VITALS: BP 147/104
== END 2019-04-14 05:06 | disposition home or self-care (01) ==
LOC: EDUNIT# 04:23 → ER 04:24
DX: M05.612 Rheumatoid arthritis of left shoulder with involvement of other organs and systems (principal); K21.9 Gastro-esophageal reflux disease without esophagitis; F32.9 Major depressive disorder, single episode, unspecified; F17.210 Nicotine dependence, cigarettes, uncomplicated
CPT/HCPCS: 96372; 99284

== ENCOUNTER 2020-07-05 01:39 | Emergency (ER) | payer BC, OTHER ==
[~2020-07-05] VITALS: Ht 185 cm; Wt 104.3 kg
[~2020-07-05 01:39] MED LIST changes: -MECL-106 PO; +MECL-149 PO; -METO10TA3 PO; +MTC10T PO; -PANT40TA3 PO; +PANT40TA52 PO
--- NOTE | 2020-07-05 02:25 | ED General ---
General Chief Complaint: General Problems/Pain Stated Complaint: LEFT WRIST PAIN-ARTHRITIS Source of Information: Patient Exam Limitations: No Limitations (DEANGELO JACK MED STUDEN) History of Present Illness Date Seen by Provider: Jul 05, 2020 Time Seen by Provider: 02:00 Initial Comments Noah is a 40 y/o male that presents to the ER with two day of 8/10 left wrist pain. Patient has a known hx of RA. 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 The pain is exacerbated when he tries to flex or extend wrist. 10mg of Prednisone and Tylenol have not helped with the pain. (+) for decreased movement and strength in left hand. Denies the following: numbness or tingling in left hand, N/V, F/C, SOB, Chest pain, Abdominal pain and symptoms at this time. The patient is currently on Methotrexate for RA. He also has Prednisone at home for flares. He denies hx of gout, pseudogout or recent trauma to this hand. He has had similar pain/swelling with other joints in the past. Timing/Duration: 1/2 Hour Severity: Moderate Modifying Factors: improves with Movement Associated Systoms: Denies Symptoms (DEANGELO JACKEN) Allergies and Home Medications Allergies Coded Allergies: No Known Drug Allergies (Unverified , 07/13/17) Home Medications Prednisone 20 Mg Tab, 40 MG PO DAILY Prescribed by: JOSHUA MARQUEZ on 04/16/18 0754 Prednisone 20 Mg Tab, 40 MG PO BID 2 tablets twice daily for 3 days One tablet twice daily for 2 days Prescribed by: JOSHUA MARQUEZ on 04/14/19 0501 Patient Home Medication List Home Medication List Reviewed: Yes (SARAH KAUFMAN MD) Review of Systems Review of Systems Constitutional: see HPI EENTM: no symptoms reported Respiratory: see HPI Cardiovascular: see HPI Gastrointestinal: see HPI Genitourinary: see HPI Musculoskeletal: joint pain, muscle weakness Skin: no symptoms reported Psychiatric/Neurological: No Symptoms Reported Hematologic/Lymphatic: No Symptoms Reported (DEANGELO JACK) Past Iazkeip-Tkflbu-Yulluh Hx Past Med/Social Hx: Reviewed Nursing Past Med/Soc Hx (SARAH KAUFMAN MD) Patient Social History Alcohol Use: Occasionally Uses Drug of Choice: THC Smoking Status: Current Everyday Smoker Type Used: Cigarettes Former Smoker, Quit: Jun 15, 2017 Recent Hopitalizations: No (SARAH KAUFMAN MD) Seasonal Allergies Seasonal Allergies: No (SARAH KAUFMAN MD) Past Medical History Surgeries: Yes (HERNIA BABY) Respiratory: No Cardiac: No Neurological: No Sexually Transmitted Disease: No HIV/AIDS: No Genitourinary: No Gastrointestinal: Yes Gastroesophageal Reflux, Chronic Diarrhea Musculoskeletal: Yes Rheumatoid Arthritis Endocrine: No HEENT: No Loss of Vision: Bilateral Cancer: No Psychosocial: Yes Depression Integumentary: Yes Eczema Blood Disorders: No Adverse Reaction/Blood Tranf: No (SARAH KAUFMAN MD) Family Medical History No Pertinent Family Hx (SARAH KAUFMAN MD) Physical Exam Vital Signs Vital Signs - First Documented 07/05/20 01:55 Temp 36.5 Pulse 80 Resp 18 B/P (MAP) 136/68 (90) Pulse Ox 98 (GUERODEANGELO MED STUDEN) Vital Signs Capillary Refill : (SARAH KAUFMAN MD) Height, Weight, BMI Height: 6'1.00" Weight: 210lbs. 7.0oz. 95.982329im; 30.00 BMI Method:Stated (SARAH KAUFMAN MD) General Appearance: No Apparent Distress, WD/WN Neck: Normal Inspection, Non Tender Respiratory: Chest Non Tender, No Accessory Muscle Use, No Respiratory Distress Cardiovascular: Regular Rate, Rhythm, No Edema, Normal Peripheral Pulses Gastrointestinal: Non Tender, Soft Extremity: Normal Capillary Refill, No Pedal Edema, Other (The left hand had decreased mobility with flexion and extention. He had a positive Tinels test. His sensory was in tact BL in hands. Strength was 3/5 in the left hand compared to the 5/5 on the right. No swelling was noted. Pain seemed to be deeper in the joint. ) Neurologic/Psychiatric: Alert, Oriented x3 Skin: Normal Color (GUEROPingStampDEANGELO MED STUDEN) Progress/Results/Core Measures Suspected Sepsis SIRS Temperature: Pulse: Respiratory Rate: Blood Pressure / Mean: (SARAH KAUFMAN MD) Results/Orders Medications Given in ED Current Medications Medications Dose Ordered Sig/Jaquan Route Start Time Stop Time Status Last Admin Dose Admin Ketorolac Tromethamine 30 mg ONCE ONCE IM 07/05/20 02:30 07/05/20 02:31 DC 07/05/20 02:34 30 MG (DEANGELO JACK MED STUDEN) Vital Signs/I&O 07/05/20 07/05/20 01:55 02:45 Temp 36.5 Pulse 80 80 Resp 18 18 B/P (MAP) 136/68 (90) 136/68 (90) Pulse Ox 98 98 (GUERODEANGELO NOVAK MED STUDVITO) Vital Signs/I&O Capillary Refill : (SARAH KAUFMAN MD) Progress Note : Progress Note This gentleman was seen and evaluated by me personally. He had tenderness directly over the Palmar surface of the left wrist with positive Tinel's sign. There are were no inflammatory changes or joint effusions. It is unclear whether this is an arthritic flare or carpal tunnel syndrome. Patient was advised to use a brace. He is also advised to increase his prednisone dosing. He may use either a burst or a short taper. We discussed how to do this. An injection of Toradol was administered. I did not advise continued use NSAIDs due to potential interaction with methotrexate and long-term stomach irritation. Patient was offered a prescription for pain medication but declined. Patient denies any injury to the wrist but he did perform manual duties with his hands and arms throughout the workday yesterday. (SARAH KAUFMAN MD) Departure Impression Primary Impression: Left wrist pain Additional Impression: Rheumatoid arthritis Qualified Codes: M06.9 - Rheumatoid arthritis, unspecified Disposition: 01 HOME, SELF-CARE Condition: Improved Departure-Patient Inst. Decision time for Depature: 02:21 (SARAH KAUFMAN MD) Referrals: HAROON WILKERSON MD (PCP/Family) Primary Care Physician Patient Instructions: Rheumatoid Arthritis (DC), Carpal Tunnel Syndrome Add. Discharge Instructions: When you return home take an additional 3 or 4 prednisone tablets (30 to 40 mg). You may take 40 mg daily for the next 3 or 4 days. Tylenol (acetaminophen) up to 1000 mg every 6 hours may be used for pain. Icing or ice massage in 20- minute intervals may be helpful also. Given the nature of your work, your pain it could also be caused by carpal tunnel syndrome. Using a wrist brace may help tremendously with carpal tunnel syndrome. 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 Call with questions or concerns. Return to the ER if you have worsening symptoms. All discharge instructions reviewed with patient and/or family. Voiced understanding. Work/School Note: Work Release Form Date Seen in the Emergency Department: Jul 05, 2020 Return to Work: Jul 06, 2020 Other Restrictions Listed Below: SeptemberJuly 06 off if still in significant pain. Medical Student Attestation and Attending Note: I have personally interviewed and examined this patient along with Deangelo Vanegas, MS 4. I have reviewed student documentation including history, physical, and assessments. I agree with the documentation except where otherwise noted. Exam: General: Alert, oriented, no acute distress, well developed HEENT: Normocephalic and atraumatic Heart: Regular rate and rhythm without murmur Lungs: Clear to auscultation bilaterally with normal effort Extremities: Decreased psychologists strength of the left hand and decreased range of motion. Positive [place] sign and tenderness over the ventral surface of the wrist. No joint effusion or inflammatory changes noted. Neuropsych: Alert, oriented, no focal deficits Skin: Warm and dry without rashes l (SARAH KAUFMAN MD) Copy Copies To 1: HAROON WILKERSON MD, JOSHUA T MD Jul 05, 2020 02:25 DEANGELO JACK [facility] Jul 05, 2020 03:13
[2020-07-05] MEDS ORDERED: KETOROLAC 30 MG/ML VIAL IM ONE (02:30)
[2020-07-05 02:45] VITALS: BP 136/68
== END 2020-07-05 02:45 | disposition home or self-care (01) ==
LOC: EDUNIT# 01:39 → ER 01:45
DX: M06.9 Rheumatoid arthritis, unspecified (principal); F17.210 Nicotine dependence, cigarettes, uncomplicated; Z79.52 Long term (current) use of systemic steroids
CPT/HCPCS: 99284

== ENCOUNTER 2022-10-16 03:34 | Emergency (ER) | payer OTHER ==
[~2022-10-16] VITALS: Ht 185.5 cm; Wt 108.9 kg
[2022-10-16 03:38] VITALS: BP 141/101
[2022-10-16] MEDS ORDERED: PRED5TAB (03:42)
[2022-10-16] MEDS ORDERED: ADAL40PE5 (03:42)
[2022-10-16] MEDS ORDERED: PRD20T PO (03:57)
--- NOTE | 2022-10-16 03:57 | ED Upper Extremity ---
General Chief Complaint: Upper Extremity Stated Complaint: RIGHT HAND PAIN Nursing Triage Note: C/O RIGHT WRIST PAIN SINCE THURSDAY. STARTED ORAL STEROIDS 10/12/22 WITHOUT IMPROVEMENT. Source: patient History of Present Illness Date Seen by Provider: Oct 16, 2022 Time Seen by Provider: 03:49 Initial Comments PT ARRIVES VIA POV FROM HOME PT STATES HE IS HAVING AN ARTHRITIS FLARE UP C/O RIGHT ANTERIOR WRIST PAIN SINCE Thursday10/15/22 HE WORKS AT [employer] AND WAS USING A HOLE PUNCH ON THURSDAY AND THURSDAY--NORMAL ACTIVITY FOR PT STATES HE STARTED GETTING SORE ON THURSDAY NO INJURY NO PARESTHESIAS OR MOTOR DEFICITS NO SWELLING NO OTHER JOINTS ARE INVOLVED NO HISTORY OF GOUT OR PSEUDOGOUT PT IS LEFT HANDED PT HAS BEEN ON HUMIRA FOR THE LAST YEAR AND HAS HAD AN IMPROVEMENT IN HIS FLARE UP'S STATES HE HAS PREDNISONE 5 MG AT HOME AND TOOK 2 OF THEM AT 0230--NO RELIEF, SO CAME HERE. HE STATES HE HAS NOT TAKEN PREDNISONE "FOR YEARS" HE HAS NOT TAKEN ANYTHING ELSE FOR PAIN AT ANY TIME. HE STATES THIS IS EXACTLY THE SAME HIS OTHER R.A. FLARES. HE DENIES ANY OTHER MEDICAL PROBLEMS OR ANY OTHER MEDICATIONS PCP: DR. WILKERSON RHEUMATOLOGY: [facility] [place] Allergies and Home Medications Allergies Coded Allergies: No Known Drug Allergies (Unverified , 07/13/17) Patient Home Medication List Home Medication List Reviewed: Yes Adalimumab (Humira Pen) 40 Mg/0.4 Ml [email or web address], (Reported) Entered as Reported by: ANNIE POWELL on 10/16/22341 Last Action: New Order Prednisone (Prednisone) 5 Mg Tablet, (Reported) Entered as Reported by: ANNIE POWELL on 10/16/22341 Last Action: New Order Prednisone (Prednisone) 20 Mg Tab, 40 MG PO DAILY Prescribed by: MARLY MARTINS on 10/16/22 5047 Discontinued Medications Prednisone (Prednisone) 20 Mg Tab, 40 MG PO DAILY Discontinued Reason: No Longer Taking Prescribed by: JOSHUA MARQUEZ on 04/16/18 9864 Last Action: Discontinued Prednisone (Prednisone) 20 Mg Tab, 40 MG PO BID Discontinued Reason: No Longer Taking Prescribed by: JOSHUA MARQUEZ on 04/14/19 0501 Last Action: Discontinued Review of Systems Constitutional: no symptoms reported Musculoskeletal: see HPI Skin: no symptoms reported Psychiatric/Neurological: No Symptoms Reported Past Utdetge-Ljtcfi-Tukdzr Hx Patient Social History Tobacco Use?: Yes Tobacco type used: Cigarettes Smoking Status: Current Everyday Smoker Substance use?: No Alcohol Use?: No Pt feels they are or have been: No Immunizations Up To Date First/Initial COVID19 Vaccinat: NA Seasonal Allergies Seasonal Allergies: No Past Medical History Surgery/Hospitalization HX: RHEUMATOID ARTHRITIS Surgeries: Yes (HERNIA BABY) Abdominal Respiratory: No Cardiac: No Neurological: No Sexually Transmitted Disease: No HIV/AIDS: No Genitourinary: No Gastrointestinal: Yes Gastroesophageal Reflux, Chronic Diarrhea Musculoskeletal: Yes Rheumatoid Arthritis Endocrine: No HEENT: No Loss of Vision: Bilateral Cancer: No Psychosocial: Yes Depression Integumentary: Yes Eczema Blood Disorders: No Adverse Reaction/Blood Tranf: No Family Medical History No Pertinent Family Hx Physical Exam Vital Signs Vital Signs - First Documented 10/16/22 03:38 Temp 36.6 Pulse 83 Resp 16 B/P (MAP) 141/101 (114) Pulse Ox 99 O2 Delivery Room Air Capillary Refill : Less Than 3 Seconds Height, Weight, BMI Height: 6'1.00" Weight: 210lbs. 7.0oz. 95.207275mx; 31.00 BMI Method:Stated General Appearance: WD/WN, no apparent distress HEENT: other (POOR DENTITION) Cardiovascular: regular rate, rhythm, no murmur Elbow/Forearm: normal inspection Wrist: Yes limited ROM, Yes soft tissue tenderness (ANTERIOR ASPECT OF RIGHT WRIST IS TENDER. NO SWELLING, NO ERYTHEMA, NO EXTERNAL EVIDENCE OF TRAUMA. SENSORY/VASCULAR INTACT. LIMITED ROM AT WRIST DUE TO PAIN. ) Hand: normal inspection Neurologic/Tendon: normal sensation Neurologic/Psychiatric: lead cargoman II-XII nml as tested, alert, normal mood/affect, oriented x 3 Skin: normal color (PT IS BLACK), warm/dry, tattoos/piercings (TATTOOS) Progress/Results/Core Measures Results/Orders My Orders Orders - MARLY MARTINS DO Ketorolac Injection (Toradol Injection) (10/16/22 04:00) Vital Signs/I&O 10/16/22 03:38 Temp 36.6 Pulse 83 Resp 16 B/P (MAP) 141/101 (114) Pulse Ox 99 O2 Delivery Room Air Blood Pressure Mean: 114 Progress Progress Note : Progress Note GIVEN TORADOL IM PT REQUESTS RX FOR ADDITIONAL PREDNISONE, STATES THAT HE DOES NOT HAVE ENOUGH AT HOME TO COMPLETE A 4 DAY COURSE AT 40 MG / DAY DISCUSSED ANTICIPATED COURSE, SYMPTOMATIC TREATMENT, MEDICATION, NEED FOR FOLLOW UP AND RETURN PRECAUTIONS REVIEWED PRIOR RECORDS--ALL ER VISITS AND OUTPATIENT PROCEDURES. Departure Impression Primary Impression: Right wrist pain Additional Impression: Rheumatoid arthritis Disposition: HOME, SELF-CARE Condition: Stable Departure-Patient Inst. Decision time for Depature: 03:56 Referrals: HAROON WILKERSON MD (PCP/Family) Primary Care Physician Patient Instructions: Rheumatoid Arthritis (DC) Add. Discharge Instructions: FOLLOW UP WITH DR. WILKERSON OR YOUR CODE ENFORCEMENT SUPERVISOR IN 2-3 DAYS IF NO BETTER All discharge instructions reviewed with patient and/or family. Voiced understanding. Scripts Prednisone (Prednisone) 20 Mg Tab 40 MG PO DAILY, #8 TAB 0 Refills Prov: MARLY MARTINS DO 10/16/22 MARLY MARTINS DO Oct 16, 2022 03:57
[2022-10-16] MEDS ORDERED: KETOROLAC 60 MG/2 ML VIAL IM ONE (04:00)
== END 2022-10-16 04:03 | disposition home or self-care (01) ==
LOC: EDUNIT# 03:34 → ER 03:36
DX: M06.9 Rheumatoid arthritis, unspecified (principal); F17.210 Nicotine dependence, cigarettes, uncomplicated; Z79.620 Long term (current) use of immunosuppressive biologic
CPT/HCPCS: 96372; 99284